=== PATIENT | female | born 1940 | race Caucasian/White ===

== ENCOUNTER 2019-04-24 09:38 | Outpatient (CLI) | payer MEDICARE, OTHER, SELFPAY ==
--- NOTE | 2019-04-24 09:48 | CT_ITS ---
WS: [id number] CT CHEST TECHNIQUE: Noncontrast CT of the chest with coronal and sagittal reformatted images. CLINICAL INFORMATION: COPD COMPARISON: CTA chest 1 30,018 DLP: 835.[address] scans at [facility] use at least one of these dose optimization techniques: automat ed exposure control; mA and/or kV adjustment per patient size (includes targeted exams where dose is matched to clinical indication); or iterative reconstruction. FINDINGS: Moderate chronic emphysematous changes. Subsegmental atelectasis right lung base. Postoperative [place] es breast prosthesis. Vascular calcification. Normal caliber thoracic aorta. No mediastinal or hilar lymphadenopathy. No axillary lymphadenopathy. Slightly nodular heterogeneous thyroid. Biapical fibrosis. No suspicious pulmonary parenchymal opacities. Scattered interstitial scattered ar eas of parenchymal fibrosis in both lungs. Normal thoracic alignment. Both adrenal glands are normal. Tiny increased attenuation left renal lesi ons likely small hemorrhagic cysts. Stable hepatic cyst or hemangioma left hepatic lobe. CT/CT chest wo con [id number] IMPRESSION: 1. Stable moderate chronic emphysematous changes. 2. No acute pulmonary infiltrates. No focal pneumonia. 3. No mediastinal or hilar lymphadenopathy. 4. Tiny hiatal hernia. 5. Postoperative changes bilateral breast prosthesis. 6. No other interval changes.
== END 2019-04-24 09:39 | disposition home or self-care (01) ==
LOC: RT 09:42
PROVIDERS: Family Provider Family Medicine; PCP Family Medicine; Visit Provider Internal Medicine Critical Care Medicine
DX: J44.9 Chronic obstructive pulmonary disease, unspecified (principal); K44.9 Diaphragmatic hernia without obstruction or gangrene
CPT/HCPCS: 71250; 94060; 94726; 94729; J7611

== ENCOUNTER 2019-05-09 12:00 | Outpatient (CLI) | payer MEDICARE, OTHER, SELFPAY | END 2019-05-09 12:01 | disposition home or self-care (01) | LOC: SLEEP 05-10 15:16 | PROVIDERS: Family Provider Family Medicine; PCP Family Medicine; Visit Provider Internal Medicine Critical Care Medicine | DX: G47.33 Obstructive sleep apnea (adult) (pediatric) (principal) | CPT/HCPCS: G0399 ==

== ENCOUNTER 2019-05-10 14:41 | Outpatient (CLI) | payer MEDICARE, OTHER, SELFPAY ==
--- NOTE | 2019-05-10 15:00 | USCV_ITS ---
Sana Coto Age: 79 Gender: F : 1940 Exam Date: 05/10/2019 14:55 Ordering Phys: Francine Jordan MD Technologist: Pj [place] [facility] [place]: COPD BP: 130 / 74 HR: 59 Rhythm: Sinus Technical Quality: Adequate MEASUREMENTS (Male / Female) Normal Values 2D ECHO LV Diastolic Diameter PLAX 3.3 cm 4.2 - 5.9 / 3.9 - 5.3 cm LV Systolic Diameter PLAX 2.2 cm IVS Diastolic Thickness 0.8 cm 0.6 - 1.0 / 0.6 - 0.9 cm IVS Systolic Thickness 0.9 cm LVPW Diastolic Thickness 1.1 cm 0.6 - 1.0 / 0.6 - 0.9 cm LVPW Systolic Thickness 1.1 cm LVOT Diameter 2.1 cm LV Ejection Fraction 2D Teich 63.7 % LA Diameter 4.0 cm LA Width 3.2 cm LA Height 5.2 cm RA Width 3.3 cm RA Height 3.6 cm M-MODE LV Diastolic Diameter MM 5.2 cm 4.2 - 5.9 / 3.9 - 5.3 cm LV Systolic Diameter MM 3.5 cm LV Ejection Fraction MM Teich 61.6 % IVS Diastolic Thickness MM 1.5 cm 0.6 - 1.0 / 0.6 - 0.9 cm IVS Systolic Thickness MM 1.6 cm LVPW Diastolic Thickness MM 1.4 cm 0.6 - 1.0 / 0.6 - 0.9 cm LVPW Systolic Thickness MM 1.8 cm RV Diastolic Diameter MM 1.9 cm Aortic Annulus Diameter 3.2 cm LA Ao Ratio MM 1.2 MV E Point Septal Separation 1.4 cm DOPPLER AV Peak Velocity 135.0 cm/s LVOT Peak Velocity 110.0 cm/s AV Area Cont Eq vti 2.8 cm squared AV Area Cont Eq pk 2.8 cm squared MV Area PHT 3.5 cm squared Mitral E to A Ratio 0.7 MV E' Velocity 9.0 cm/s Mitral E to MV E' Ratio 7.2 Mitral E to LV E' Lateral Ratio 6.3 Mitral E to LV E' Septal Ratio 8.4 TR Peak Velocity 208.0 cm/s TR Peak Gradient 17.3 mmHg TV Peak E Velocity 118.0 cm/s Right Atrial Pressure 3.0 mmHg Pulmonary Artery Systolic Pressu 20.3 mmHg PV Peak Velocity 127.0 cm/s FINDINGS Left Ventricle Normal left ventricular cavity size. Normal left ventricular systolic function. No regional wall motion abnormalities. Left ventricular ejection fraction is estimated at 61 %. Grade I/IV diastolic dysfunction (abnormal relaxation filling pattern), normal to mildly elevated filling pressures. Right Ventricle The right ventricle is normal in size and function. Right Atrium The right atrium is normal in size. Left Atrium The left atrium is normal in size. Mitral Valve Structurally normal mitral valve without significant stenosis or prolapse. There is no mitral regurgitation. Aortic Valve Structurally normal aortic valve without significant sclerosis or stenosis. There is no aortic regurgitation. Tricuspid Valve Mild tricuspid valve regurgitation. Pulmonic Valve Structurally normal pulmonic valve without significant stenosis. There is no pulmonic regurgitation. Pericardium Normal pericardium without effusion. Aorta Normal ascending aorta dimension. CONCLUSIONS 1-Normal left ventricular cavity size. Normal left ventricular systolic function. No regional wall motion abnormalities. Left ventricular ejection fraction is estimated at 61 %. Grade I/IV diastolic dysfunction (abnormal relaxation filling pattern), normal to mildly elevated filling pressures. 2-Mild tricuspid valve regurgitation. 3-There is no pericardial effusion. 4-Pulmonary artery systolic pressure is within normal limits. 5-When compared to the prior echocardiogram dated 04/20/2017 pulmonary hypertension has improved to normal now Eddy Cano MD (Electronically Signed) Final Date: 10 May 2019 19:22 S
[2019-05-10 15:44] LABS: Alanine Aminotransferase 31 U/L (0-33); Albumin Level 4.4 g/dL (3.5-5.2); Alkaline Phosphatase 70 IU/L (35-105); Anion Gap 15.6 (5-19); Aspartate Amino Transferase 31 U/L (0-32); Blood Urea Nitrogen 19 mg/dL (8-23); Calcium 10.7 mg/dL (8.5-10.5); Carbon Dioxide 28 mmol/L (22-29); Chloride 100 mmol/L (98-107); Globulin 2.9 g/dL (1.3-4.6); Glucose 107 mg/dL (65-115); Potassium 4.6 mmol/L (3.5-5.1); Sodium 139 mmol/L (136-145); Total Bilirubin 0.5 mg/dL (0.15-1.2); Total Protein 7.3 g/dL (6.6-8.7)
== END 2019-05-10 14:42 | disposition home or self-care (01) ==
LOC: US 14:43
PROVIDERS: Family Provider Family Medicine; PCP Family Medicine; Visit Provider Internal Medicine Critical Care Medicine
DX: R06.02 Shortness of breath (principal); J44.9 Chronic obstructive pulmonary disease, unspecified; I07.1 Rheumatic tricuspid insufficiency
CPT/HCPCS: 80053; 93306

== ENCOUNTER 2020-04-03 14:18 | Outpatient (CLI) | payer MEDICARE, OTHER, SELFPAY ==
--- NOTE | 2020-04-03 14:34 | MM_ITS ---
WS: [id number] BILATERAL DIGITAL SCREENING MAMMOGRAPHY WITH CAD CLINICAL INFORMATION: SCREENING HISTORY: Screening mammogram. No current complaints. COMPARISON: TECHNIQUE: Bilateral CC and MLO views. FINDINGS: Bilateral breast implants. Scattered fibroglandular densities bilaterally. Nodular breast parenchyma bilaterally is unchanged. N o suspicious focal mass, asymmetry, calcifications, or architectural distortion. No evidence of malig juan carlos. MM/[id number] IMPRESSION: BI-RADS: 2-Benign FOLLOW UP: 1 Year Follow-up Recommend return to annual screening mammography.
== END 2020-04-03 14:19 | disposition home or self-care (01) ==
LOC: RADSHAW 14:22
PROVIDERS: Family Provider Family Medicine; PCP Family Medicine; Visit Provider Family Medicine
DX: Z12.31 Encounter for screening mammogram for malignant neoplasm of breast (principal)
CPT/HCPCS: 77067

== ENCOUNTER 2020-10-23 16:53 | Outpatient (CLI) | payer MEDICARE, OTHER, SELFPAY ==
--- NOTE | 2020-10-23 17:03 | XRR_ITS ---
PROCEDURE INFORMATION: Exam: XR Chest Exam date and time: 10/23/2020 5:03 PM Age: 80 years old Clinical indication: Shortness of breath; Additional info: SOB TECHNIQUE: Imaging protocol: XR of the chest. Views: 2 views. COMPARISON: CT chest con [id number] 04/24/2019 11:08 AM FINDINGS: Lungs: The lungs are somewhat hyperinflated with increased interstitial markings, likely representing COPD. Minimal bibasilar atelectasis. No evidence of focal consolidation to suggest pneumonia. Pleural spaces: Unremarkable. No pleural effusion. No pneumothorax. Heart/Mediastinum: Unremarkable. No cardiomegaly. Bones/joints: Degenerative changes of the spine seen. XR/XR chest 2V* [id number] IMPRESSION: No evidence of focal consolidation. COPD changes.
== END 2020-10-23 16:54 | disposition home or self-care (01) ==
PROVIDERS: PCP Family Medicine; Visit Provider Internal Medicine Critical Care Medicine
DX: R06.02 Shortness of breath (principal)
CPT/HCPCS: 71046

== ENCOUNTER 2021-03-01 18:10 | Emergency (ER) | payer MEDICARE, OTHER, SELFPAY ==
[2021-03-01 18:48] VITALS: BP 151/83; PULSE 58; RESP 19; TEMP 36.3; O2SAT 89; BMI 31.4
--- NOTE | 2021-03-01 21:36 | ED_ITS ---
HPI - SOB/Dyspnea General: Chief Complaint: Shortness of Breath/Dyspnea Stated Complaint: Cough Cold O2 Stat 70 Time Seen by Provider: 03/01/21 21:03 History of Present Illness: HPI Narrative: 81-year-old female with a history of COPD/bronchitis and tracheomalacia presenting with shortness of breath. She has been using her albuterol inhaler at home, and had been on prednisone for 5 days. She had just finished this. She became more short of breath this ev ening. She has had a cough, with some clear sputum production. No fever. No significant chest pain. She does use oxygen intermittently at home, and noticed that after going to the bathroom, her saturations sent to the low 80s MD elicited complaint: shortness of breath and cough Pertinent past history: COPD Onset (ago): day(s) Context: recent illness Timing: intermittent Severity: moderate Exacerbating factors: exertion Relieving factors: oxygen Known history of: COPD and other Associated symptoms: Reports nausea and sense of impending doom; Deny abdominal pain, chest congestion, chest pain, cough, dizziness, extremity pain, fever(s) or vomiting Review of Systems Const: Denies: fever(s) Card: Denies: chest pain Resp: Denies: chest congestion GI: Reports: nausea and diarrhea; Denies: abdominal pain or vomiting Musc: Denies: extremity pain Neuro: Denies: dizziness PFSH ED PFSH: Medical History COPD (chronic obstructive pulmonary disease) DVT (deep venous thrombosis) Essential (primary) hypertension Melanoma Pulmonary embolism Tracheomalacia, acquired Surgical History Cataract extraction status of left eye History of ear surgery History of hysterectomy History of lumpectomy of right breast Family History Father Parkinson's disease Mother Heart disease Sister Cancer Lung Sister Cancer Ovarian Social History Smoking and tobacco status: former smoker Quit status (tobacco): has quit using tobacco Year quit tobacco: 2001 - 1PPD x 40 Years Alcohol intake: current Alcohol intake frequency: holidays/special occasions only Lives independently: Yes Household members: none Marital status: Current occupational status: retired History of recent travel: No Current gender identity: Female Physical Exam Const: COMMON NORMALS: no acute distress, patient oriented x3 and alert GENERAL APPEARANCE: ill appearing NUTRITIONAL APPEARANCE: overweight ORIENTATION/CONSCIOUSNESS: Yes awake, Yes oriented to person and Yes oriented to place Chest: COMMONS NORMALS: normal inspection of the chest Resp: EFFORT & INSPECTION: Yes tachypneic and Yes uses accessory muscles AUSCULTATION: wheezes and diminished lung sounds Cardio: COMMON NORMALS: regular rate and regular rhythm RATE: regular rate RHYTHM: regular rhythm GI: COMMON NORMALS: Normal to inspection, nondistended, normoactive bowel sounds present Extremity: GENERAL: Yes edema (1+) Neuro: COMMON NORMALS: patient oriented x3 SENSORIUM/ORIENTATION: Yes alert, Yes oriented to person and Yes oriented to place Course Vital Signs: Vital signs: Vital Signs Temperature 97.3 F L 03/01/21 21:56 Pulse Rate 82 03/01/21 23:00 Respiratory Rate 18 03/01/21 23:00 Blood Pressure 147/82 03/01/21 21:56 Pulse Oximetry 96 03/01/21 23:00 MDM - SOB/Dyspnea MDM Narrative: Medical decision making narrative: 81-year-old female with shortness of breath. She has diminished lung sounds and wheezes on exam. Her heart failure enzyme is not elevated. Her troponin is nonelevated. Her white blood cell count is 9.5. Hemoglobin is 16.8. Her chest x-ray shows no acute disease, only chronic changes of COPD. Swabs for influenza COVID-19 are negative. She has had 125 Solu-Medrol, and a DuoNeb treatment. She is feeling much better. She is breathing well at her baseline oxygen usage at home. Discussed admission with the patient. She would like a trial at home. She has prednisone, and Levaquin there. With shared decision-making, the patient will go home on prednisone at least 40 mg daily for the next 5 days, Levaquin, and usage of her albuterol inhaler every 4 hours while awake for the next 48 hours, then as needed. I have written a prescription for DuoNeb treatments at home as well. She is going to get a nebulizer machine for home to use with this. Her daughter who is a nurse is going to stay with her. She knows to return for any worsening symptoms for hospital admission Lab Data: Labs: Lab Results 03/01/21 03/01/21 03/01/21 21:52 21:52 21:52 WBC 9.5 10^3/uL 10^3/ uL (4.0-10.0) RBC 5.12 10^6/uL 10^6 /uL (4.1-5.3) Hgb 16.8 g/dL H g/dL (11.5-15.3) Hct 51.4 % H % (37.0-47.0) MCV 100.4 fl H fl (81-99) MCH 32.8 pg pg (28.0-34.0) MCHC 32.7 g/dL g/dL (30.0-36.0) RDW 12.7 % % (12.1-15.1) Plt Count 171 10^3/cmm 10^3 /cmm (130-400) MPV 10.3 fL fL (7.4-10.4) Neut % (Auto) 76.8 % % Lymph % (Auto) 10.4 % % Norton % (Auto) 12.3 % % Eos % (Auto) 0.0 % % Baso % (Auto) 0.1 % % Neut # (Auto) 7.32 10^3/uL 10^3 /uL (1.8-7.7) Lymph # (Auto) 1.0 10^3/uL 10^3/ uL (0.8-4.8) Norton # (Auto) 1.2 10^3/uL H 10^ 3/uL (0.2-0.9) Eos # (Auto) 0.0 10^3/uL 10^3/ uL (0.0-0.8) Baso # (Auto) 0.0 10^3/uL 10^3/ uL (0.0-0.1) Nucleated RBC % (a uto) 0 % % Nucleated RBCs # 0.0 /100WBC /100W BC D-Dimer 0.30 ug/mIFEU ug/ mIFEU (0-0.59) Specimen Type Sample Site ABG pH ABG pCO2 ABG pO2 ABG HCO3 ABG Base Excess Reyes Test Hematocrit Hgb O2 Saturation Carboxyhemoglobin Methemoglobin Total Hemoglobin O2 Delivery Device O2 Liters/Min Loan Workout Officer ID Sodium 138 mmol/L mmol/L (136-145) Potassium 4.6 mmol/L mmol/L (3.5-5.1) Chloride 101 mmol/L mmol/L (98-107) Carbon Dioxide 23 mmol/L mmol/L (22-29) Anion Gap 18.6 (5-19) BUN 22 mg/dL mg/dL (8-23) Creatinine 1.0 mg/dL H mg/dL (0.5-0.9) GFR Calculation Not Reportable Glucose 95 mg/dL mg/dL (65-115) Calculated Osmolal ity 289 mOsm/kg mOsm/ kg (285-295) Lactic Acid Calcium 8.7 mg/dL mg/dL (8.5-10.5) Total Bilirubin 0.3 mg/dL mg/dL (0.15-1.2) AST 20 U/L U/L (0-32) ALT 21 U/L U/L (0-33) Alkaline Phosphata se 72 IU/L IU/L (35-105) Troponin T Baselin e C-Reactive Protein 0.4 mg/L mg/L (0.0-4.9) NT-Pro-B Natriuret Pep 202 pg/mL pg/mL (0-450) Total Protein 6.6 g/dL g/dL (6.6-8.7) Albumin 4.2 g/dL g/dL (3.5-5.2) Globulin 2.4 g/dL g/dL (1.3-4.6) Procalcitonin 0.06 ng/mL ng/mL (0-0.5) Influenza Type A A g Influenza Type B A g SARS-CoV-2 Ag (Rap id) 03/01/21 03/01/21 03/01/21 21:52 21:52 22:57 WBC RBC Hgb Hct MCV MCH MCHC RDW Plt Count MPV Neut % (Auto) Lymph % (Auto) Norton % (Auto) Eos % (Auto) Baso % (Auto) Neut # (Auto) Lymph # (Auto) Norton # (Auto) Eos # (Auto) Baso # (Auto) Nucleated RBC % (a uto) Nucleated RBCs # D-Dimer Specimen Type Sample Site ABG pH ABG pCO2 ABG pO2 ABG HCO3 ABG Base Excess Reyes Test Hematocrit Hgb O2 Saturation Carboxyhemoglobin Methemoglobin Total Hemoglobin O2 Delivery Device O2 Liters/Min Loan Workout Officer ID Sodium Potassium Chloride Carbon Dioxide Anion Gap BUN Creatinine GFR Calculation Glucose Calculated Osmolal ity Lactic Acid 1.2 mmol/L mmol/L (0.5-2.2) Calcium Total Bilirubin AST ALT Alkaline Phosphata se Troponin T Baselin e 9 ng/L ng/L (0-10) C-Reactive Protein NT-Pro-B Natriuret Pep Total Protein Albumin Globulin Procalcitonin Influenza Type A A g Negative (Negative) Influenza Type B A g Negative (Negative) SARS-CoV-2 Ag (Rap id) 03/01/21 03/01/21 22:57 23:02 WBC RBC Hgb Hct MCV MCH MCHC RDW Plt Count MPV Neut % (Auto) Lymph % (Auto) Norton % (Auto) Eos % (Auto) Baso % (Auto) Neut # (Auto) Lymph # (Auto) Norton # (Auto) Eos # (Auto) Baso # (Auto) Nucleated RBC % (a uto) Nucleated RBCs # D-Dimer Specimen Type Arterial Sample Site Radial, right ABG pH 7.33 L (7.35-7.45) ABG pCO2 56.9 mmHg H mmHg (35-45) ABG pO2 73.8 mmHg L mmHg (80.0-100.0) ABG HCO3 30.2 mmol/L H mmo l/L (22-26) ABG Base Excess 2.5 mmol/L H mmol /L (-2.0-2.0) Reyes Test Pos Hematocrit 53.4 % H % (37-47) Hgb O2 Saturation 93.1 % L % (95-100) Carboxyhemoglobin 0.8 %THgb %THgb (0.4-20.1) Methemoglobin 0.6 % % (0.4-1.5) Total Hemoglobin 17.4 g/dL H g/dL (12-16) O2 Delivery Device Nc O2 Liters/Min 3.0 % % Loan Workout Officer ID Nicer2 Sodium Potassium Chloride Carbon Dioxide Anion Gap BUN Creatinine GFR Calculation Glucose Calculated Osmolal ity Lactic Acid Calcium Total Bilirubin AST ALT Alkaline Phosphata se Troponin T Baselin e C-Reactive Protein NT-Pro-B Natriuret Pep Total Protein Albumin Globulin Procalcitonin Influenza Type A A g Influenza Type B A g SARS-CoV-2 Ag (Rap id) Negative (Negative) Discharge Plan Discharge Patient Disposition: Home Clinical Impression: Acute exacerbation of chronic obstructive airways disease Condition: Stable Prescriptions: New ipratropium-albuterol 0.5 mg-3 mg(2.5 mg base)/3 mL solution for nebulization 3 ml inhalation Q6H PRN (Reason: shortness of breath or wheezing) Qty: 180 RF: 0 No Action acetaminophen-codeine [Tylenol-Codeine #3] 300-30 mg tablet 1 tab PO BID PRNRF: 0 simvastatin 40 mg tablet 40 mg PO DAILY RF: 0 spironolactone 50 mg tablet 50 mg PO DAILY RF: 0 metoprolol tartrate 50 mg tablet 25 mg PO BID RF: 0 diphenhydramine HCl [Benadryl] 25 mg capsule 25 mg PO QDAY PRNRF: 0 Xarelto 10 mg tablet 10 mg PO DAILY Qty: 90 RF: 3 Symbicort 160-4.5 mcg/actuation HFA aerosol inhaler 2 puff INHALATION BID Qty: 10.2 RF: 11 albuterol sulfate [Ventolin HFA] 90 mcg/actuation HFA aerosol inhaler 2 puff INHALATION Q6H PRN (Reason: bronchospasm) Qty: 25.5 RF: 3 levofloxacin 750 mg tablet 750 mg PO DAILY 5 Days Qty: 5 RF: 0 Discharge Orders: Discharge ED (Routine); Ordered 03/02/21 Ordered By: Elmer Shelton Referrals: Eugene Johnson DO [Primary Care Provider] - 1-3 days Discharge Diet: Advance as tolerated Discharge Activity: Increase activity as tolerated Patient Instructions: COPD (Chronic Obstructive Pulmonary Disease) (ED) Activity Restrictions/Additional Instructions: Use your albuterol inhaler every 4 hours while awake for the next 48 hours. If you obtain a nebulizer machine, use the medication prescribed instead of the albuterol inhaler every 6 hours while awake for the next 48 hours, then as needed. Take your prednisone for the next 5 days, at least 40 mg daily. Also take your levofloxacin 750 mg daily for the next 5 days. Return immediately to the ER for any worsening shortness of breath, or chest discomfort, fever greater than 100 despite antibiotics, mental status changes, other concerning symptoms. Coding Level of Care Code ED Lathe Winder for Corettag Fwd Exam Detailed
--- NOTE | 2021-03-01 21:36 | XRR_ITS ---
PROCEDURE INFORMATION: Exam: XR Chest Exam date and time: 03/01/2021 9:36 PM Age: 81 years old Clinical indication: Dyspnea; Patient HX: Congestion. Film is rotated. Large habitus, could not get her straight, she remained sitting somewhat twisted. ; Additional info: SOB TECHNIQUE: Imaging protocol: XR of the chest. Views: 1 view. COMPARISON: CR XR chest 2V* [id number] 10/23/2020 5:13 PM FINDINGS: Lungs: Emphysematous lung changes. No focal airspace consolidation. Hyperinflation lung pattern. Pleural spaces: Unremarkable. No pleural effusion. No pneumothorax. Heart/Mediastinum: Unremarkable. No cardiomegaly. Bones/joints: Unremarkable. XR/XR chest 1V portable [id number] IMPRESSION: 1. Sequela of advanced COPD. 2. No focal pneumonia identified.
--- NOTE | 2021-03-01 21:37 | ECG_ITS ---
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 Measurements Intervals [place] Rate: 81 P: 40 NM: 158 QRS: 54 QRSD: 89 T: 70 QT: 330 QTc: 385 Interpretive Statements SINUS RHYTHM WITH OCCASIONAL SUPRAVENTRICULAR PREMATURE COMPLEXES MINIMAL ST DEPRESSION [0.025+ mV ST DEPRESSION] Compared to ECG 04/20/2017 23:38:34 ST (T wave) deviation now present T-wave abnormality no longer present Electronically Signed On 03-02-2021 20:06:37 CIGAR HEAD PERFORATOR by Jona Vora M.D. [id number] f
[2021-03-01 21:56] VITALS: BP 147/82; PULSE 61; RESP 20; TEMP 36.3; O2SAT 92
[2021-03-01 21:58] LABS: Basophils % 0.1 %; Hematocrit 51.4 % (37.0-47.0); Hemoglobin 16.8 g/dL (11.5-15.3); Lymphocytes % 10.4 %; Mean Corpuscular HGB Conc 32.7 g/dL (30.0-36.0); Mean Corpuscular Hemoglobin 32.8 pg (28.0-34.0); Mean Corpuscular Volume 100.4 fl (81-99); Mean Platelet Volume 10.3 fL (7.4-10.4); Monocytes # 1.2 10^3/uL (0.2-0.9); Monocytes % 12.3 %; Neutrophils # 7.32 10^3/uL (1.8-7.7); Neutrophils % 76.8 %; Nucleated Red Blood Cells % 0 %; Platelet Count 171 10^3/cmm (130-400); Red Blood Count 5.12 10^6/uL (4.1-5.3); Red Cell Distribution Width 12.7 % (12.1-15.1); White Blood Count 9.5 10^3/uL (4.0-10.0)
[2021-03-01 22:20] LABS: Lactic Sepsis W/Reflex 1.2 mmol/L (0.5-2.2)
[2021-03-01 22:30] LABS: NT Pro B Type Natriuretic Pept 202 pg/mL (0-450); Procalcitonin 0.06 ng/mL (0-0.5)
[2021-03-01 22:33] LABS: Troponin(5th) Baseline 9 ng/L (0-10)
[2021-03-01 22:41] LABS: Alanine Aminotransferase 21 U/L (0-33); Albumin Level 4.2 g/dL (3.5-5.2); Alkaline Phosphatase 72 IU/L (35-105); Anion Gap 18.6 (5-19); Aspartate Amino Transferase 20 U/L (0-32); Blood Urea Nitrogen 22 mg/dL (8-23); C Reactive Protein 0.4 mg/L (0.0-4.9); Calcium 8.7 mg/dL (8.5-10.5); Carbon Dioxide 23 mmol/L (22-29); Chloride 101 mmol/L (98-107); Globulin 2.4 g/dL (1.3-4.6); Glucose 95 mg/dL (65-115); Osmolality Calculated 289 mOsm/kg (285-295); Potassium 4.6 mmol/L (3.5-5.1); Sodium 138 mmol/L (136-145); Total Bilirubin 0.3 mg/dL (0.15-1.2); Total Protein 6.6 g/dL (6.6-8.7)
[2021-03-01 23:00] VITALS: PULSE 82; RESP 18; O2SAT 96
[2021-03-01] MEDS: ipratropium-albuterol 3 mL Neb INHALATION (23:00)
[2021-03-01 23:14] LABS: ABG PCO2 56.9 mmHg (35-45); ABG PH Result 7.33 (7.35-7.45); Arterial Blood Gas Hematocrit 53.4 % (37-47); Base Excess ABG 2.5 mmol/L (-2.0-2.0); Blood Gas Allen Test Pos; Blood Gas Sample Site Radial, right; Blood Gas Sample Type Arterial; Carboxyhemoglobin 0.8 %THgb (0.4-20.1); HCO3 ABG 30.2 mmol/L (22-26); HGB O2 Sat 93.1 % (95-100); Methemoglobin 0.6 % (0.4-1.5); PO2 ABG 73.8 mmHg (80.0-100.0); Total Hemoglobin 17.4 g/dL (12-16)
[2021-03-01 23:15] LABS: Oxygen Device NC
[2021-03-02 00:01] LABS: Influenza A by IFA Negative (Negative); Influenza B by IFA Negative (Negative); SARS Covid-2 Antigen Negative (Negative)
[2021-03-02] MEDS: levoFLOXacin 500 mg Tablet PO (01:08)
[2021-03-02 01:50] VITALS: BP 149/76; PULSE 82; RESP 18; O2SAT 96
== END 2021-03-02 01:00 | disposition home or self-care (01) ==
PROVIDERS: Emergency Provider Emergency Medicine; PCP Family Medicine
DX: J44.1 Chronic obstructive pulmonary disease with (acute) exacerbation (principal); I10 Essential (primary) hypertension; Z86.711 Personal history of pulmonary embolism; Z87.891 Personal history of nicotine dependence; Z20.822 Contact with and (suspected) exposure to COVID-19
CPT/HCPCS: 71045; 80053; 82805; 83605; 83880; 84145; 84484; 85025; 85378; 86140; 87426; 87804; 93005; 94640; 96374; 96376; 99284; J2930

== ENCOUNTER 2021-05-02 11:07 | Outpatient (CLI) | payer MEDICARE, OTHER, SELFPAY ==
--- NOTE | 2021-05-02 11:14 | MM_ITS ---
WS: [id number] BILATERAL DIGITAL SCREENING MAMMOGRAPHY WITH CAD CLINICAL INFORMATION: SCREENING HISTORY: Screening mammogram. No current complaints. COMPARISON: April 03, 2020 TECHNIQUE: Bilateral CC and MLO views. FINDINGS: Bilateral breast implants with capsular calcifications. Breast implants appear grossly inta ct. Scattered fibroglandular densities bilaterally. Vascular calcification. A few ovoid densities outer R IGHT breast unchanged since 2019. No suspicious focal mass, asymmetry, calcifications, or architectur al distortion. No evidence of malignancy. MM/[id number] IMPRESSION: BI-RADS: 2-Benign FOLLOW UP: 1 Year Follow-up Recommend return to annual screening mammography.
== END 2021-05-02 11:08 | disposition home or self-care (01) ==
LOC: RADSHAW 11:08
PROVIDERS: PCP Family Medicine; Visit Provider Family Medicine
DX: Z12.31 Encounter for screening mammogram for malignant neoplasm of breast (principal)
CPT/HCPCS: 77067

== ENCOUNTER 2021-06-06 23:38 | Emergency (ER) | payer MEDICARE, OTHER, SELFPAY ==
--- NOTE | 2021-06-06 23:39 | XRR_ITS ---
PROCEDURE INFORMATION: Exam: XR Chest Exam date and time: 06/06/2021 10:43 PM Age: 81 years old Clinical indication: Chest pressure; Patient HX: C/O intermittent chest pain. History of copd. ; Additional info: Cp TECHNIQUE: Imaging protocol: XR of the chest. Views: 1 view. COMPARISON: CR (CHEST, ) 03/01/2021 9:51 PM FINDINGS: Lungs: Allowing for density from overlying breast implants over the (more convincing on the right), the lungs are clear. Pleural spaces: Unremarkable. No pleural effusion. No pneumothorax. Heart/Mediastinum: The heart size is normal. Bones/joints: Unremarkable. XR/XR chest 1V portable [id number] IMPRESSION: No change, lungs clear
--- NOTE | 2021-06-06 23:39 | ECG_ITS ---
[facility] Test Date: 2021-06-06 Pat Name: Sana Coto Department: Room: Gender: Female Director Executive Communications: : 1940 Requested By: Kennedy Winters Order Number: [id number] Navjot MD: Jona Vora M.D. Measurements Intervals [place] Rate: 65 P: 68 [place]: 181 QRS: 62 QRSD: 95 T: 67 QT: 368 QTc: 383 Interpretive Statements SINUS RHYTHM LOW QRS VOLTAGE IN PRECORDIAL LEADS [QRS DEFLECTION < 1.0 mV IN CHEST LEADS] Compared to ECG 03/01/2021 21:40:16 Low QRS voltage now present ST (T wave) deviation no longer present Electronically Signed On 06-08-2021 17:19:10 CDT by Jona Vora M.D. [id number]
[2021-06-06 23:43] VITALS: BP 167/77; PULSE 57; RESP 22; TEMP 36.7; O2SAT 93; BMI 34.3
--- NOTE | 2021-06-06 23:47 | W.ED.CHESTPA ---
HPI - Chest Pain General: Chief Complaint: Chest Pain Stated Complaint: CP Time Seen by Provider: 06/06/21 23:39 Source: patient and EMS Mode of arrival: EMS Limitations: no limitations History of Present Illness: 81-year-old female who states that tonight she was having chest pain started roughly 1 to 2 hours ago after taking her meds. States that pain has been intermittent in nature and comes and goes and is in the center of her chest. She said no vomiting or diarrhea she has chronic dyspnea from COPD and tracheomalacia. She states she is currently pain-free EMS states she has been hypertensive she denies any worsening improving factors no vomiting or diarrhea. Associated symptoms: Deny abdominal pain, dyspnea, fever(s), nausea or vomiting Review of Systems Const: Denies: fever(s), chills, body aches or change in appetite Eyes: Denies: blurry vision or eye discomfort ENMT: Denies: throat pain or dental pain Card: Reports: chest pain Resp: Denies: dyspnea GI: Denies: abdominal pain, nausea, vomiting or diarrhea : Denies: dysuria Musc: Denies: neck pain or back pain Skin/Breast: Denies: rash Neuro: Denies: headache(s) Psych: Denies: depression Renan/Lymph: Denies: easy bruising All/Imm: Denies: urticaria PFSH ED PFSH: Medical History COPD (chronic obstructive pulmonary disease) DVT (deep venous thrombosis) Essential (primary) hypertension Melanoma Pulmonary embolism Tracheomalacia, acquired Surgical History Cataract extraction status of left eye History of ear surgery History of hysterectomy History of lumpectomy of right breast Family History Father Parkinson's disease Mother Heart disease Sister Cancer Lung Sister Cancer Ovarian Social History Smoking and tobacco status: former smoker Quit status (tobacco): has quit using tobacco Year quit tobacco: 2001 - 1PPD x 40 Years Alcohol intake: current Alcohol intake frequency: holidays/special occasions only Lives independently: Yes Household members: none Marital status: Current occupational status: retired History of recent travel: No Current gender identity: Female Physical Exam Const: COMMON NORMALS: no acute distress, patient oriented x3 and healthy appearing HENMT: COMMON NORMALS: normocephalic and atraumatic HEAD & SCALP: normocephalic and atraumatic Eye: COMMON NORMALS: Equal, round and reactive pupils present and EOMs intact bilaterally PUPIL: Yes Equal, round and reactive pupils present Neck/C-Spine: COMMON NORMALS: full ROM and supple Chest: COMMONS NORMALS: normal inspection of the chest and normal palpation of entire chest wall Resp: COMMON NORMALS: normal respiratory effort, No retractions, No use of accessory muscles and clear to auscultation bilaterally AUSCULTATION: clear to auscultation bilaterally Cardio: COMMON NORMALS: regular rate, regular rhythm and No murmurs present (Cardio) RATE: regular rate RHYTHM: regular rhythm GI: COMMON NORMALS: Normal to inspection, nondistended, normoactive bowel sounds present, Soft to palpation, non-tender and no masses PALPATION: Yes Soft to palpation Extremity: COMMON NORMALS: normal to inspection and full ROM Neuro: COMMON NORMALS: patient oriented x3, moves all extremities and no focal motor deficits Psych: COMMON NORMALS: mental status grossly normal, Normal thought process present and cooperative THOUGHT PROCESS: Normal thought process present Skin: COMMON NORMALS: no rashes or lesions noted and no wounds GENERAL SKIN EXAM: no rashes or lesions noted Course Vital Signs: Vital signs: Vital Signs Temperature 98.1 F 06/06/21 23:43 Pulse Rate 53 L 06/07/21 01:16 Respiratory Rate 12 06/07/21 01:16 Blood Pressure 142/79 06/07/21 01:16 Pulse Oximetry 92 06/07/21 01:16 [facility] - Chest Pain Medical Decision Making Patient presents for chest pains atypical in nature. She could had some esophagitis from taking her prednisone tonight. EKGs troponins are both normal. She has no signs of acute coronary syndrome. No signs of dissection or pulmonary embolism. She is requesting discharge she feels improved she is stable for discharge return if worsening. Lab Data : 06/06/21 23:20 06/06/21 23:20 Radiology Impressions Chest X-Ray 06/06/21 23:39 IMPRESSION: No change, lungs clear Laboratory Results WBC 13.7 10^3/uL (4.0-10.0) H 06/06/21 23:20 RBC 4.73 10^6/uL (4.1-5.3) 06/06/21 23:20 Hgb 15.1 g/dL (11.5-15.3) 06/06/21 23:20 Hct 46.5 % (37.0-47.0) 06/06/21 23:20 MCV 98.3 fl (81-99) 06/06/21 23:20 MCH 31.9 pg (28.0-34.0) 06/06/21 23:20 MCHC 32.5 g/dL (30.0-36.0) 06/06/21:20 RDW 12.9 % (12.1-15.1) 06/06/21:20 Plt Count 198 10^3/cmm (130-400) 06/06/21 23:20 MPV 11.2 fL (7.4-10.4) H 06/06/21 23:20 Neut % (Auto) 82.5 % 06/06/21 23:20 Lymph % (Auto) 7.7 % 06/06/21 23:20 Larimer % (Auto) 8.8 % 06/06/21 23:20 Eos % (Auto) 0.0 % 06/06/21 23:20 Baso % (Auto) 0.1 % 06/06/21 23:20 Neut # (Auto) 11.31 10^3/uL (1.8-7.7) H 06/06/21 23:20 Lymph # (Auto) 1.1 10^3/uL (0.8-4.8) 06/06/21 23:20 Larimer # (Auto) 1.2 10^3/uL (0.2-0.9) H 06/06/21 23:20 Eos # (Auto) 0.0 10^3/uL (0.0-0.8) 06/06/21 23:20 Baso # (Auto) 0.0 10^3/uL (0.0-0.1) 06/06/21 23:20 Nucleated RBC % (auto) 0 % 06/06/21 23:20 Nucleated RBCs # 0.0 /100WBC 06/06/21 23:20 PT 15.10 SECONDS (12.1-14.9) H 06/06/21 23:20 INR 1.15 (0.8-1.2) 06/06/21 23:20 Sodium 136 mmol/L (136-145) 06/06/21 23:20 Potassium 4.5 mmol/L (3.5-5.1) 06/06/21 23:20 Chloride 100 mmol/L (98-107) 06/06/21 23:20 Carbon Dioxide 24 mmol/L (22-29) 06/06/21 23:20 Anion Gap 16.5 (5-19) 06/06/21 23:20 BUN 27 mg/dL (8-23) H 06/06/21 23:20 Creatinine 1.2 mg/dL (0.5-0.9) H 06/06/21 23:20 GFR Calculation Not Reportable 06/06/21 23:20 Glucose 146 mg/dL (65-115) H 06/06/21 23:20 Calculated Osmolality 290 mOsm/kg (285-295) 06/06/21 23:20 Calcium 9.9 mg/dL (8.5-10.5) 06/06/21 23:20 Total Bilirubin 0.2 mg/dL (0.15-1.2) 06/06/21 23:20 AST 17 U/L (0-32) 06/06/21 23:20 ALT 13 U/L (0-33) 06/06/21 23:20 Alkaline Phosphatase 86 IU/L (35-105) 06/06/21 23:20 Troponin T Baseline 11 ng/L (0-10) H 06/06/21 23:20 Troponin T 120 Minute 13.08 ng/L (0-10) H 06/07/21 01:12 Delta Troponin T 2.08 ABS# (0-10) 06/07/21 01:12 Total Protein 7.0 g/dL (6.6-8.7) 06/06/21 23:20 Albumin 4.5 g/dL (3.5-5.2) 06/06/21 23:20 Globulin 2.5 g/dL (1.3-4.6) 06/06/21 23:20 EKG Data EKG 1: I personally reviewed and interpreted this EKG as follows: EKG interpretation date: 06/06/21 EKG interpretation time: 23:49 Interpretation: nsr hr [address] or t wave abnormalities qrs 95 qtc 379 Discharge Plan Discharge Patient Disposition: Home Clinical Impression: Chest pain Condition: Stable Prescriptions: No Action acetaminophen-codeine [Tylenol-Codeine #3] 300-30 mg tablet 1 tab PO BID PRN0RF simvastatin 40 mg tablet 40 mg PO DAILY 0RF spironolactone 50 mg tablet 50 mg PO DAILY 0RF metoprolol tartrate 50 mg tablet 25 mg PO BID 0RF diphenhydramine HCl [Benadryl] 25 mg capsule 25 mg PO QDAY PRN0RF Xarelto 10 mg tablet 10 mg PO DAILY Qty: 90 3RF Symbicort 160-4.5 mcg/actuation HFA aerosol inhaler 2 puff INHALATION BID Qty: 10.2 11RF Rx Instructions: 340 B pricing: Requesting 3 months supply (30.6 g) w 3 refills. Thanks albuterol sulfate [Ventolin HFA] 90 mcg/actuation HFA aerosol inhaler 2 puff INHALATION Q6H PRN (Reason: bronchospasm) Qty: 25.5 3RF Trelegy Ellipta 100-62.5-25 mcg blister with device 1 inh inhalation DAILY 30 Days Qty: 60 3RF prednisone 5 mg tablet 5 mg PO DAILY 30 Days Qty: 30 3RF levofloxacin 750 mg tablet 750 mg PO DAILY 5 Days Qty: 5 0RF ipratropium-albuterol 0.5 mg-3 mg(2.5 mg base)/3 mL solution for nebulization 3 ml inhalation Q6H PRN (Reason: shortness of breath or wheezing) 30 Days Qty: 360 4RF Spiriva with HandiHaler 18 mcg capsule, w/inhalation device 1 cap inhalation DAILY 30 Days Qty: 60 7RF Rx Instructions: puncture 1 cap using device; one dose = 2 inhalations Discharge Orders: Discharge ED (Routine); Ordered 06/07/21 Ordered By: Kennedy Winters Referrals: Eugene Johnson DO [Primary Care Provider] - 1-3 days Discharge Diet: Advance as tolerated Discharge Activity: Resume usual activity Patient Instructions: Chest Pain (ED) Coding Level of Care Code ED Centrifuge Separator Operator for g Fwd Exam Comprehensive
[2021-06-07 00:07] LABS: Basophils % 0.1 %; Hematocrit 46.5 % (37.0-47.0); Hemoglobin 15.1 g/dL (11.5-15.3); Lymphocytes # 1.1 10^3/uL (0.8-4.8); Lymphocytes % 7.7 %; Mean Corpuscular HGB Conc 32.5 g/dL (30.0-36.0); Mean Corpuscular Hemoglobin 31.9 pg (28.0-34.0); Mean Corpuscular Volume 98.3 fl (81-99); Mean Platelet Volume 11.2 fL (7.4-10.4); Monocytes # 1.2 10^3/uL (0.2-0.9); Monocytes % 8.8 %; Neutrophils # 11.31 10^3/uL (1.8-7.7); Neutrophils % 82.5 %; Nucleated Red Blood Cells % 0 %; Platelet Count 198 10^3/cmm (130-400); Red Blood Count 4.73 10^6/uL (4.1-5.3); Red Cell Distribution Width 12.9 % (12.1-15.1); White Blood Count 13.7 10^3/uL (4.0-10.0)
[2021-06-07 00:19] LABS: INR 1.15 (0.8-1.2)
[2021-06-07 00:27] LABS: Troponin(5th) Baseline 11 ng/L (0-10)
[2021-06-07 00:29] LABS: Alanine Aminotransferase 13 U/L (0-33); Albumin Level 4.5 g/dL (3.5-5.2); Alkaline Phosphatase 86 IU/L (35-105); Anion Gap 16.5 (5-19); Aspartate Amino Transferase 17 U/L (0-32); Blood Urea Nitrogen 27 mg/dL (8-23); Calcium 9.9 mg/dL (8.5-10.5); Carbon Dioxide 24 mmol/L (22-29); Chloride 100 mmol/L (98-107); Globulin 2.5 g/dL (1.3-4.6); Glucose 146 mg/dL (65-115); Osmolality Calculated 290 mOsm/kg (285-295); Potassium 4.5 mmol/L (3.5-5.1); Sodium 136 mmol/L (136-145); Total Bilirubin 0.2 mg/dL (0.15-1.2)
[2021-06-07 01:16] VITALS: BP 142/79; PULSE 53; RESP 12; O2SAT 92
[2021-06-07 01:57] LABS: Troponin 5 2HR 13.08 ng/L (0-10)
[2021-06-07 02:06] LABS: Troponin 5 2HR Delta 2.08 ABS# (0-10)
[2021-06-07 02:47] VITALS: BP 145/78; PULSE 50; RESP 17; O2SAT 92
== END 2021-06-07 02:51 | disposition home or self-care (01) ==
PROVIDERS: Emergency Provider Emergency Medicine; PCP Family Medicine
DX: R07.9 Chest pain, unspecified (principal); J44.9 Chronic obstructive pulmonary disease, unspecified; I10 Essential (primary) hypertension; Z86.711 Personal history of pulmonary embolism; Z87.891 Personal history of nicotine dependence
CPT/HCPCS: 36415; 71045; 80053; 84484; 85025; 85610; 93005; 99283

== ENCOUNTER → 2021-06-23 08:35 | Outpatient (BNVA) | payer MEDICARE, OTHER, SELFPAY | PROVIDERS: PCP Family Medicine; Visit Provider Internal Medicine Critical Care Medicine | DX: R05.9 Cough, unspecified (principal); J18.9 Pneumonia, unspecified organism; I27.82 Chronic pulmonary embolism | CPT/HCPCS: 71046; 80053; 85025; 99214 ==

== ENCOUNTER → 2021-07-04 10:04 | Outpatient (BNVA) | payer MEDICARE, OTHER, SELFPAY | PROVIDERS: PCP Family Medicine; Visit Provider Internal Medicine Critical Care Medicine | DX: J18.9 Pneumonia, unspecified organism (principal); J41.0 Simple chronic bronchitis; I27.82 Chronic pulmonary embolism; Z87.891 Personal history of nicotine dependence; I10 Essential (primary) hypertension | CPT/HCPCS: 99214 ==

== ENCOUNTER 2021-07-14 13:48 | Outpatient (CLI) | payer MEDICARE, OTHER, SELFPAY ==
--- NOTE | 2021-07-14 13:59 | XR_ITS ---
WS: [id number] Chest 2 views, 07/14/2021 Clinical Data: Pneumonia Comparison: PA and lateral chest, 06/23/2021. Findings: No nodules, masses or effusions are seen. The heart is normal. The pulmonary vascularity is not increased. No pneumonia or pneumothorax is seen. There is minimal patchy interstitial change in both lower lobes which jackman an improvement in the appearance of the lower lobes from the prior study . The aortic arch and descending thoracic aorta are tortuous. The diaphragms are flattened. XR/XR chest 2V* [id number] Impression: 1. Minimal bilateral patchy interstitial change in the lower lobes marking an i mprovement from the prior study. 2. Atherosclerosis and hyperinflation.
== END 2021-07-14 13:49 | disposition home or self-care (01) ==
LOC: RAD 13:51
PROVIDERS: PCP Family Medicine; Visit Provider Internal Medicine Critical Care Medicine
DX: J18.9 Pneumonia, unspecified organism (principal); I70.90 Unspecified atherosclerosis
CPT/HCPCS: 71046

== ENCOUNTER 2021-08-20 08:18 | Outpatient (CLI) | payer MEDICARE, OTHER, SELFPAY ==
--- NOTE | 2021-08-20 08:34 | CT_ITS ---
WS: [id number] NONCONTRAST CT RIGHT HIP TECHNIQUE: Noncontrast CT RIGHT hip with coronal and sagittal reformatted images. CLINICAL INFORMATION: R HIP PAIN/HX OF FRACTURE COMPARISON: None. DLP: [id number] scans at [facility] use at least one of these dose optimization techniques: automated e xposure control; mA and/or kV adjustment per patient size (includes targeted exams where dose is matc hed to clinical indication); or iterative reconstruction. FINDINGS: Advanced osteoarthritis RIGHT hip with osteophytic spurring. Advanced joint space narrowing with bone -on-bone articulation superolateral joint compartment. Subchondral cystic change involving the femora l head and adjacent acetabulum. Hypertrophic spurring along the femoral neck. Hypertrophic changes at the greater trochanter. Femoral neck and proximal femur appear intact. No acute fractures. Visualized RIGHT superior and inferior pubic rami appear intact. Degenerative arthritis pubic symphys is. Degenerative arthritis RIGHT sacroiliac joint. Small joint effusion. Sigmoid diverticulosis. CT/CT hip RT wo con* [id number] IMPRESSION: 1. No acute fractures. 2. Advanced osteoarthritis RIGHT hip with advanced joint space narrowing. Bone -on-bone articulation superolateral joint compartment. 3. Hypertrophic spurring at the acetabulum and femoral neck. Subchondral cysti c change involving the femoral head and adjacent acetabulum. 4. Normal visualized RIGHT pubic rami.
== END 2021-08-20 08:19 | disposition home or self-care (01) ==
LOC: RAD 08:22
PROVIDERS: PCP Family Medicine; Visit Provider Family Medicine
DX: M25.551 Pain in right hip (principal); M16.11 Unilateral primary osteoarthritis, right hip
CPT/HCPCS: 73700

== ENCOUNTER → 2021-10-13 14:51 | Outpatient (BNVA) | payer MEDICARE, OTHER, SELFPAY | PROVIDERS: PCP Family Medicine; Referring Provider Family Medicine; Visit Provider Specialist | DX: M16.0 Bilateral primary osteoarthritis of hip (principal); S32.9XXA Fracture of unspecified parts of lumbosacral spine and pelvis, initial encounter for closed fracture; X58.XXXA Exposure to other specified factors, initial encounter; M25.551 Pain in right hip | CPT/HCPCS: 73502; 99204; 99205 ==

== ENCOUNTER 2021-10-31 09:34 | Outpatient (CLI) | payer MEDICARE, OTHER, SELFPAY ==
--- NOTE | 2021-10-31 09:47 | NM_ITS ---
WS: [id number] THREE-PHASE BONE SCAN HISTORY: Possible pelvic fracture. COMPARISON: RIGHT hip radiograph 10/13/[address] 08/20/2021 Patient is is injected with 23.0 mCi Tc99m HDP intravenously. Immediate angiographic phase imaging is performed over the area of concern. Static blood pool imaging also performed. Two-hour whole-body sc intigrams performed in anterior and posterior projections. Additional large field of view imaging sub mitted as necessary. 3 phase bone scan images centered over the pelvis. Normal arterial phase and blood pool imaging. No a symmetry involving the hips or pelvis. On the delayed imaging there is intense increased uptake involving the RIGHT hip towards the acetabul um and femoral head. There is a small amount of increased uptake at the LEFT hip joint but to a lesse r extent than the RIGHT. Mild osteoarthritic changes involving the knees and AC joints bilaterally. Normal soft tissue uptake. Normal renal uptake. NM/NM bone 3 phase [id number] IMPRESSION: . 1. Early arterial and blood pool phase imaging over the pelvis is normal. 2. Intense uptake involving the RIGHT hip centered towards the acetabulum and femoral head. This corresponds to the severe hypertrophic bone formation and roberto int space narrowing on the prior CT. Favor this is probably all related to bone upon bone. Tiny microfractures could be present but they were not evident on t he CT. 3. Mild increased uptake at the LEFT hip from additional mild osteoarthritis.
== END 2021-10-31 09:35 | disposition home or self-care (01) ==
PROVIDERS: PCP Family Medicine; Visit Provider Specialist
DX: S32.9XXA Fracture of unspecified parts of lumbosacral spine and pelvis, initial encounter for closed fracture (principal); M16.0 Bilateral primary osteoarthritis of hip; X58.XXXA Exposure to other specified factors, initial encounter
CPT/HCPCS: 78315; A9561

== ENCOUNTER → 2021-11-12 09:14 | Outpatient (BNVA) | payer MEDICARE, OTHER, SELFPAY | PROVIDERS: PCP Family Medicine; Visit Provider Specialist | DX: M16.11 Unilateral primary osteoarthritis, right hip (principal) | CPT/HCPCS: 99214 ==

== ENCOUNTER → 2021-11-14 09:48 | Outpatient (BNVA) | payer MEDICARE, OTHER, SELFPAY | PROVIDERS: PCP Family Medicine; Visit Provider Internal Medicine Critical Care Medicine | DX: J41.0 Simple chronic bronchitis (principal); I27.82 Chronic pulmonary embolism; Z79.01 Long term (current) use of anticoagulants | CPT/HCPCS: 99214 ==

== ENCOUNTER 2022-04-01 12:59 | Inpatient (IN) | payer MEDICARE, OTHER, SELFPAY ==
[2022-04-01 13:07] VITALS: BP 124/71; PULSE 52; RESP 16; TEMP 36.6; O2SAT 93; BMI 36.9
--- NOTE | 2022-04-01 13:36 | XRR_ITS ---
PROCEDURE INFORMATION: Exam: XR Left Tibia and Fibula Exam date and time: 04/01/2022 1:41 PM Age: 82 years old Clinical indication: Injury or trauma; Fall; Lower leg; Foreign body involvement not specified; Injury details: History--lacerations on left leg TECHNIQUE: Imaging protocol: Radiologic exam of the Left tibia and fibula. Views: 2 views. COMPARISON: US ROR venous duplex LE LT 04/20/2016 4:56 PM FINDINGS: Bones/joints: Osseous structures are intact. No fracture or malalignment. Visualized joint surfaces are preserved. Soft tissues: Evidence of soft tissue injury anterolateral aspect left lower leg. Few tiny rounded radiopaque densities that appear vascular nature. No radiopaque foreign body detected. XR/XR tibia fibula LT 2V [id number] IMPRESSION: Soft tissue injury. No radiopaque foreign bodies detected.
--- NOTE | 2022-04-01 13:38 | W.ED.FALL ---
HPI - Fall General: Chief Complaint: Fall Stated Complaint: Lacerations Time Seen by Provider: 04/01/22 13:16 Source: patient and family Mode of arrival: EMS History of Present Illness: 82-year-old female who presents to the emergency room after a fall. She was trying to get into a car and missed the step on a running board her left leg slipped and she has a very severe large laceration with significant gapping in the wound. She is otherwise awake and alert denies any other injury she did not strike her head did not lose consciousness. She has a history of a DVT and PE as well as COPD and obstructive sleep apnea she is on Xarelto. There is no active bleeding time patient was initially seen in the emergency room. MD complaint: fall Fall from: standing Fall witnessed: yes, by family Place fall occurred: street Loss of consciousness: None Prolonged down time: no Context: tripped/slipped Location of injury - extremities: Left: lower leg Associated symptoms-after fall: Reports no associated symptoms; Denies abdominal pain or chest pain Review of Systems Const: Denies: fever(s), chills, body aches, change in appetite, fatigue or malaise ENMT: Denies: throat pain, ear or mastoid pain, nasal discharge or nasal congestion Card: Denies: chest pain, edema, dyspnea on exertion or orthopnea Resp: Denies: dyspnea, productive cough or non-productive cough GI: Denies: abdominal pain, nausea, vomiting, hematemesis, coffee ground emesis, diarrhea, constipation, bloating, hematochezia or melena : Denies: flank pain, difficulty voiding, dysuria, urinary frequency or urinary urgency Skin/Breast: Denies: rash or pruritus PFSH ED PFSH: Medical History COPD (chronic obstructive pulmonary disease) DVT (deep venous thrombosis) Essential (primary) hypertension Melanoma Pulmonary embolism Tracheomalacia, acquired Surgical History Cataract extraction status of left eye History of ear surgery History of hysterectomy History of lumpectomy of right breast Family History Father Parkinson's disease Mother Heart disease Sister Cancer Lung Sister Cancer Ovarian Social History Smoking and tobacco status: never smoked Quit status (tobacco): has quit using tobacco Year quit tobacco: 2001 - 1PPD x 40 Years Alcohol intake: current Alcohol intake frequency: holidays/special occasions only Lives independently: Yes Household members: none Marital status: Current occupational status: retired History of recent travel: No Current gender identity: Female Female Reproductive History: Spontaneous abortions: No Physical Exam Const: GENERAL APPEARANCE: cooperative and comfortable ORIENTATION/CONSCIOUSNESS: Yes awake, Yes oriented to person, Yes oriented to place and Yes oriented to time HENMT: COMMON NORMALS: normocephalic, atraumatic, hearing grossly normal bilaterally, external ears normal, EAC's normal, TM's normal bilaterally, Normal nasal mucous membranes and turbinates present, moist oral mucous membranes and oropharynx normal HEAD & SCALP: normocephalic and atraumatic NOSE: Normal nasal mucous membranes and turbinates present EXTERNAL EAR: Yes external ears normal EXTERNAL AUDITORY CANAL: EAC's normal TYMPANIC MEMBRANE: TM's normal bilaterally Eye: COMMON NORMALS: Equal, round and reactive pupils present, EOMs intact bilaterally, conjunctivae normal and no scleral icterus CONJUNCTIVA: Yes conjunctivae normal PUPIL: Yes Equal, round and reactive pupils present Neck/C-Spine: COMMON NORMALS: full ROM, no lymphadenopathy, supple and no JVD Resp: COMMON NORMALS: normal respiratory effort, No retractions, No use of accessory muscles and clear to auscultation bilaterally AUSCULTATION: clear to auscultation bilaterally Cardio: COMMON NORMALS: no JVD, regular rate, regular rhythm and No murmurs present (Cardio) RATE: regular rate RHYTHM: regular rhythm GI: COMMON NORMALS: Soft to palpation and No hepatosplenomegaly present AUSCULTATION: Yes normoactive bowel sounds PALPATION: Yes Soft to palpation, No Tenderness to palpation present (GI), No Guarding due to palpation present (GI) and Yes No hepatosplenomegaly present Extremity: LEFT LOWER EXTREMITY: Yes lower leg (Extensive left lower leg laceration see diagram) EXTREMITY IMAGE (FRONT): 1. 2. 3. Neuro: SENSORIUM/ORIENTATION: Yes oriented to person, Yes oriented to place and Yes oriented to time Skin: COMMON NORMALS: no rashes or lesions noted GENERAL SKIN EXAM: no rashes or lesions noted Procedures Laceration Laceration 1: Site: lower extremity Side (If applicable): left Size (cm): 50 Description: linear and flap Depth: simple, single layer Local Anesthetic: lidocaine 1% (Limited to the medial aspect of the laceration) Amount of anesthesia used (mL): 5 Pre-repair: wound explored, irrigated extensively and deep structures intact Skin layer closed with: nylon (Initial attempt with fluoroscopy cut through the skin, wound edges approximated with only ends of laceration were able to be primarily closed) Size (cm): 3-0 Technique: running and horizontal mattress Course Vital Signs: Vital signs: Vital Signs Temperature 98.1 F 04/06/22 12:00 Pulse Rate 65 04/06/22 12:00 Respiratory Rate 18 04/06/22 12:00 Blood Pressure 108/75 04/06/22 12:00 Pulse Oximetry 90 04/06/22 12:00 Oxygen Delivery Me thod 04/06/22 09:50 Oxygen Flow Rate 2 04/03/22 20:00 MDM - Fall Medical Decision Making Extensive laceration of the devascularization of large portions of the adjacent tissue. When initially attempted to approximate the tissue the tissue was so fragile the sutures actually cut through the tissue and creating more damage than they were helping. Several running sutures were applied as well as were appropriate and the skin consistency would allow horizontal mattress sutures were used. Advised family we would not be able to primarily close this due to swelling and aggressive attempts for primary closure at this time would lead to more tissue destruction and ultimately would cause more complications in the long run. The apex of the flap lateral to the anterior tibial laceration extending towards the knee is very concerning has a significant degree of ecchymosis and is pale and concerned may have lost some of its blood supply and if not we will slough due to ecchymosis creating a large defect. Reviewed with the patient and the family the best you can do in this setting at this time is to approximate the tissue and decrease the gap as much as possible. Along the ends of the laceration we were able to primarily close some of the wound but the majority remains open. Anesthesia for wound closure was provided by anesthesiology via a ultrasound-guided nerve block. 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 The area that patient still had some remaining feeling was anticipated by anesthesiology and they had advised us of their concern. This area was supplied with lidocaine with good result. Lidocaine was not used primarily because the extent of the injury such a large amount would need to be used would likely result in lidocaine toxicity addition lella would have worsened tissue swelling and made closure even more complicated. Discussed with hospitalist will also consult Dr. Lord patient will need monitoring at the wound clinic. Also advised him I suspect at some point once we get a sense of what the tissue remains viable that she may need to be referred for skin grafting however we are quite early in the process at this point. Patient's tetanus was updated and given a gram of Ancef will need to continue prophylactic antibiotics Medical Records I reviewed the patient's medical records. Lab Data I reviewed the patient's lab results. 04/02/22 02:23 04/05/22 03:46 Radiology Impressions Tibia/Fibula X-Ray 04/01/22 13:36 IMPRESSION: Soft tissue injury. No radiopaque foreign bodies detected. Renal Ultrasound 04/05/22 22:07 IMPRESSION: 1. No hydronephrosis of either kidney. 2. Bilateral renal cysts. 3. No sonographically visible solid renal mass. 4. Other findings discussed above. Laboratory Results WBC 8.7 10^3/uL (4.0-10.0) 04/02/22 02: RBC 4.08 10^6/uL (4.1-5.3) L 04/02/22 02: Hgb 12.9 g/dL (11.5-15.3) 04/02/22 02: Hct 40.8 % (37.0-47.0) 04/02/22 02: MCV 100.0 fl (81-99) H 04/02/22 02: MCH 31.6 pg (28.0-34.0) 04/02/22 02: MCHC 31.6 g/dL (30.0-36.0) 04/02/22 02: RDW 12.6 % (12.1-15.1) 04/02/22 02: Plt Count 146 10^3/cmm (130-400) 04/02/22 02: MPV 10.3 fL (7.4-10.4) 04/02/22 02: Neut % (Auto) 62.7 % 04/02/22 02: Lymph % (Auto) 21.2 % 04/02/22 02:23 [place] % (Auto) 14.5 % 04/02/22 02:23 Eos % (Auto) 0.7 % 04/02/22 02:23 Baso % (Auto) 0.6 % 04/02/22 02:23 Neut # (Auto) 5.47 10^3/uL (1.8-7.7) 04/02/22 02: Lymph # (Auto) 1.9 10^3/uL (0.8-4.8) 04/02/22 02: [place] # (Auto) 1.3 10^3/uL (0.2-0.9) H 04/02/22 02:23 Eos # (Auto) 0.1 10^3/uL (0.0-0.8) 04/02/22 02: Baso # (Auto) 0.1 10^3/uL (0.0-0.1) 04/02/22 02: Nucleated RBC % (auto) 0 % 04/02/22 02: Nucleated RBCs # 0.0 /100WBC 04/02/22 02:23 Sodium 140 mmol/L (136-145) 04/02/22 02:23 Potassium 4.7 mmol/L (3.5-5.1) 04/02/22 02: Chloride 106 mmol/L (98-107) 04/02/22 02: Carbon Dioxide 25 mmol/L (22-29) 04/02/22 02:23 Anion Gap 13.7 (5-19) 04/02/22 02:23 BUN 14 mg/dL (8-23) 04/02/22 02:23 Creatinine 1.1 mg/dL (0.5-0.9) H 04/02/22 02: GFR Calculation Not Reportable 04/02/22 02: Glucose 108 mg/dL (65-115) 04/02/22 02:23 Estimat Average Glucose 114 04/02/22 02:23 Hemoglobin A1c 5.6 % (4.0-6.0) 04/02/22 02:23 Calculated Osmolality 291 mOsm/kg (285-295) 04/02/22 02:23 Calcium 8.9 mg/dL (8.5-10.5) 04/02/22 02:23 Magnesium 1.9 mg/dL (1.7-2.3) 04/02/22 02:23 Iron 63 ug/dL (37-145) 04/01/22 18:40 TIBC 297 mcg/dl 04/01/22 18:40 % Saturation 21.2 % (20-50) 04/01/22 18:40 Unsat Iron Binding 234 ug/dL (112-347) 04/01/22 18:40 Total Bilirubin 0.4 mg/dL (0.15-1.2) 04/02/22 02: AST 16 U/L (0-32) 04/02/22 02: ALT 9 U/L (0-33) 04/02/22 02:23 Alkaline Phosphatase 65 U/L (35-105) 04/02/22 02:23 Total Protein 5.9 g/dL (6.6-8.7) L 04/02/22 02:23 Albumin 3.4 g/dL (3.5-5.2) L 04/02/22 02:23 Globulin 2.5 g/dL (1.3-4.6) 04/02/22 02:23 Triglycerides 97 mg/dL (0-150) 04/02/22 02:23 Cholesterol 108 mg/dL (0-200) 04/02/22 02:23 LDL Cholesterol, Calc 49 mg/dL (50-129) L 04/02/22 02:23 Total VLDL Cholesterol 19 mg/dL (0-30) 04/02/22 02:23 HDL Cholesterol 40 mg/dL (60-100) L 04/02/22 02:23 Cholesterol/HDL Ratio 2.70 mg/dL (0.0-4.40) 04/02/22 02:23 Vitamin B12 186 pg/mL (232-1245) L 04/01/22 18:40 Folate 4.4 ng/mL (4.8-37.3) L 04/01/22 18:40 Procalcitonin 0.07 ng/mL (0-0.5) 04/01/22 18:40 TSH 1.46 uIU/mL (0.27-4.20) 04/01/22 18:40 Urine Color Yellow (Yellow) 04/02/22 04:45 Urine Appearance Clear (CLEAR) 04/02/22 04:45 Urine pH 5 (5-7) 04/02/22 04:45 Ur Specific [place] 1.020 (1.005-1.030) 04/02/22 04:45 Urine Protein Neg (Negative) 04/02/22 04:45 Urine Glucose (UA) Norm (Normal) 04/02/22 04:45 Urine Ketones Negative (Negative) 04/02/22 04:45 Urine Blood Neg (Negative) 04/02/22 04:45 Urine Nitrate Negative (Negative) 04/02/22 04:45 Urine Bilirubin Neg (Negative) 04/02/22 04:45 Urine Urobilinogen Norm mg/dL (Negative) 04/02/22 04:45 Ur Leukocyte Esterase Negative (Negative) 04/02/22 04:45 Discharge Plan Discharge Patient Disposition: Admitted As Inpatient Admit Provider: Andres Yoon Clinical Impression: Laceration of leg, Tracheomalacia, acquired, COPD (chronic obstructive pulmonary disease), History of deep vein thrombosis Condition: Stable Discharge Diet: Cardiac Discharge Activity: As per PT/OT instructions Coding Level of Care Code ED [employer]ployment Technician for Ramírez López
[2022-04-01] MEDS: fentaNYL 50 mcg/mL INJ 2mL 25 MCG IVP (13:47)
[2022-04-01] MEDS: ceFAZolin 1,000 MG in sodium chloride 0.9% (plus) 50 ML 100 MG IV (13:48)
--- NOTE | 2022-04-01 15:01 | ANES.PREANE2 ---
Pre-Anesthetic Assessment Height/Weight: Height 1.73 m Weight 110.223 kg Temp Pulse Resp BP Pulse Ox O2 Del Method 97.9 F 52 L 16 124/71 93 04/01/22 13:07 04/01/22 13:07 04/01/22 13:07 04/01/22 13:07 04/01/22 13:07 04/01/22 13:07 Nerve Block Familial anesthetic complications: none Social No alcohol and No tobacco Airway Comments: Comments: patient has history of tracheobronchomalacia seen on CT - no symptoms of airway collapse Pulmonary Chronic Obstructive Pulmonary Disease (severe) and Sleep Apnea CV/HEM Deep Vein Thrombosis (on eliquis) and Hypertension Anesthetic Plan ASA status: 3 Anesthesia: Regional (specify below) Other: adductor canal + Popliteal Nerve block Risk of > 500 ml blood loss (7ml/kg in children): No Medications/Allergies Home Medications Medication Instructions Recorded Confirmed Last Taken Type diphenhydramine HCl 25 mg capsule 25 mg PO QDAY 05/01/19 04/01/22 04/01/22 History (Benadryl) simvastatin 40 mg tablet 40 mg PO DAILY 05/01/19 04/01/22 03/31/22 History spironolactone 50 mg tablet 50 mg PO DAILY 05/01/19 04/01/22 04/01/22 History albuterol sulfate 90 mcg/actuation 2 puff inhalation Q6H PRN 01/13/21 04/01/22 Unknown Rx aerosol inhaler (Ventolin HFA) bronchospasm #25.5 grams budesonide-formoterol HFA 160 2 puff inhalation BID #10.2 grams 01/13/21 04/01/22 Unknown Rx mcg-4.5 mcg/actuation aerosol inhaler (Symbicort) ipratropium 0.5 mg-albuterol 3 mg 3 ml inhalation Q6H PRN shortness 03/17/21 04/01/22 Unknown Rx (2.5 mg base)/3 mL nebulization of breath or wheezing 30 days #360 soln mL tiotropium bromide 18 mcg capsule 1 cap inhalation DAILY 30 days #60 04/09/21 04/01/22 04/01/22 Rx with inhalation device (Spiriva inhalations with HandiHaler) rivaroxaban 10 mg tablet (Xarelto) 10 mg PO DAILY #30 tabs 12/15/21 04/01/22 04/01/22 Rx acetaminophen 300 mg-codeine 30 mg 1 tab PO BID PRN pain #60 tabs 02/19/22 04/01/22 Unknown Rx tablet metoprolol tartrate 25 mg tablet 25 mg PO BID 04/01/22 04/01/22 04/01/22 History Allergies Allergy/AdvReac Type Severity Reaction Status Date / Time latex AdvReac Intermediate ADR-Itching Verified 04/01/22 13:44 clindamycin AdvReac ADR-Gastrointestinal Verified 04/01/22 13:44 Upset [facility] Anesthesia Medical History COPD (chronic obstructive pulmonary disease) DVT (deep venous thrombosis) Essential (primary) hypertension Melanoma Pulmonary embolism Tracheomalacia, acquired Surgical History Cataract extraction status of left eye History of ear surgery History of hysterectomy History of lumpectomy of right breast Family History Father Parkinson's disease Mother Heart disease Sister Cancer Lung Sister Cancer Ovarian Social History Smoking and tobacco status: never smoked Quit status (tobacco): has quit using tobacco Year quit tobacco: 2001 - 1PPD x 40 Years Alcohol intake: current Alcohol intake frequency: holidays/special occasions only Lives independently: Yes Household members: none Marital status: Current occupational status: retired History of recent travel: No Current gender identity: Female Female Reproductive History Spontaneous abortions: No Data Anesthesia Cardiac Studies: Echocardiogram Ultrasound 05/10/19
--- NOTE | 2022-04-01 15:05 | ANES.PROC ---
Anesthesia Procedures Procedure/Date: 04/01/22 Nerve Block ^: Nerve Block 1: Main Anesthesia: other (local) Time Out Performed: Yes Consent: requested by attending/covering physician, from patient, from other, risks and benefits reviewed and patient agrees to proceed Nerve block location: adductor canal (L) Anesthesia monitors applied: pulse oximetry, EKG, BP cuff and oxygen Nerve block position: supine Anesthetic Used: lidocaine 1% (5 cc) and ropivicaine 0.5% (15 cc) Ultrasound used to: recognize landmarks Nerve Stimulator Used?: No Interscalene/Femoral BLK: 4 stimuplex 21 g needle used for position and inplane approach, visualize local anesthetic spread and no vascular puncture identified Injection: neg aspiration of heme Patient Tolerated Procedure: well Complications: none Nerve Block 2: Main Anesthesia: other (local) Time Out Performed: Yes Consent: requested by attending/covering physician, from patient, from other, risks and benefits reviewed, patient agrees to proceed and emergency procedure Nerve block location: adductor canal (L) Anesthesia monitors applied: pulse oximetry, EKG, BP cuff and oxygen Nerve block position: supine Anesthetic Used: lidocaine 1% (5 cc) and ropivicaine 0.5% (15 cc) Ultrasound used to: recognize landmarks and visualize and ID femerol nerve Nerve Stimulator Used?: No Interscalene/Femoral BLK: 4 stimuplex 21 g needle used for position and inplane approach, visualize local anesthetic spread and no vascular puncture identified Injection: neg aspiration of heme Patient Tolerated Procedure: well Complications: none
[2022-04-01] MEDS: LORazepam 2 mg/mL INJ 1 mL 1 MG IVP (15:19)
[2022-04-01] MEDS: lidocaine 1% INJ 10 mL (per mL) INTRADERMA (18:09)
--- NOTE | 2022-04-01 18:20 | PM.HP ---
Providers/Chief Complaint Primary Care Provider: Aravind Samano DO Chief Complaint: Lacerations History of Present Illness Sana Coto is a 82 year old female with past medical history of pulmonary embolism and DVT on Xarelto, COPD, struct of sleep apnea not on BiPAP, hypertension who presented to the ER today after a fall while she was trying to climb into her car at which point she injured her leg. In the ER patient was found to have a significant gash on the left leg in the anterior region for which she received multiple skin approximation sutures. On examination patient was seen with daughter at bedside. Patient was awake and alert. Stating pain is well controlled, complaining of mild tingling in her foot but able to wiggle her toes around. Denies any nausea, vomiting, headache, chest pain. Denies any similar complaints prior to fall. In the ER patient received multiple sutures and approximation of skin as much as possible. Dr. Lord was consulted. Review of Systems General: Reports: 10 or more systems reviewed and unremarkable except in HPI and below Const: Denies: fever(s), chills, body aches, change in appetite, change in weight, malaise, night sweats, diaphoresis, change in sleep pattern, daytime sleepiness or snoring Eyes: Denies: change in vision, blurry vision, photophobia, eye discomfort or eye discharge ENMT: Denies: throat pain, enlarged tonsils, hoarseness, mouth pain, oral sores, dry mouth, tinnitus, nasal congestion or post nasal drip Card: Denies: chest pain, palpitations, irregular heart rhythm, edema, swelling of feet/ankles, lightheadedness, syncope, pre-syncope, dyspnea on exertion, orthopnea, leg pain with exertion or acrocyanosis Resp: Denies: dyspnea, productive cough, non-productive cough, wheezing, stridor, pain on inspiration, change in phlegm color, hemoptysis or chest congestion GI: Denies: abdominal pain, nausea, vomiting, hematemesis, coffee ground emesis, dysphagia, heartburn, diarrhea, constipation, bloating, GI cramping, change in bowel habits, pain on defecation, hematochezia or melena : Denies: flank pain, dysuria, urinary frequency, urinary urgency, urinary hesitancy, nocturia or hematuria Musc: Denies: neck pain, back pain, extremity pain, joint pain, joint swelling, joint redness, joint stiffness or limited range of motion Neuro: Denies: headache(s), numbness in extremities, weakness in extremities, sensory changes, lack of coordination, difficulty walking, frequent falls, dizziness, vertigo, confusion, Slurred speech present, difficulty communicating thoughts or seizure-like activity Psych: Denies: anxiety, depression, mood swings, panic attacks, hopelessness or irritability Endo: Denies: polyuria, polydipsia, tired all the time, cold intolerance, excessive sweating, flushing or heat intolerance Renan/Lymph: Denies: easy bruising or easy bleeding All/Imm: Denies: tongue swelling, facial swelling or acute wheezing Medications/Allergies Home Medications Medication Instructions Recorded Confirmed Last Taken Type diphenhydramine HCl 25 mg capsule 25 mg PO QDAY 05/01/19 04/01/22 04/01/22 History (Benadryl) simvastatin 40 mg tablet 40 mg PO DAILY 05/01/19 04/01/22 03/31/22 History spironolactone 50 mg tablet 50 mg PO DAILY 05/01/19 04/01/22 04/01/22 History albuterol sulfate 90 mcg/actuation 2 puff inhalation Q6H PRN 01/13/21 04/01/22 Unknown Rx aerosol inhaler (Ventolin HFA) bronchospasm #25.5 grams budesonide-formoterol HFA 160 2 puff inhalation BID #10.2 grams 01/13/21 04/01/22 Unknown Rx mcg-4.5 mcg/actuation aerosol inhaler (Symbicort) ipratropium 0.5 mg-albuterol 3 mg 3 ml inhalation Q6H PRN shortness 03/17/21 04/01/22 Unknown Rx (2.5 mg base)/3 mL nebulization of breath or wheezing 30 days #360 soln mL tiotropium bromide 18 mcg capsule 1 cap inhalation DAILY 30 days #60 04/09/21 04/01/22 04/01/22 Rx with inhalation device (Spiriva inhalations with HandiHaler) rivaroxaban 10 mg tablet (Xarelto) 10 mg PO DAILY #30 tabs 12/15/21 04/01/22 04/01/22 Rx acetaminophen 300 mg-codeine 30 mg 1 tab PO BID PRN pain #60 tabs 02/19/22 04/01/22 Unknown Rx tablet metoprolol tartrate 25 mg tablet 25 mg PO BID 04/01/22 04/01/22 04/01/22 History Allergies Allergy/AdvReac Type Severity Reaction Status Date / Time latex AdvReac Intermediate ADR-Itching Verified 04/01/22 13:44 clindamycin AdvReac ADR-Gastrointestinal Verified 04/01/22 13:44 Upset PFSH Acute PFSH: Medical History COPD (chronic obstructive pulmonary disease) DVT (deep venous thrombosis) Essential (primary) hypertension Melanoma Pulmonary embolism Tracheomalacia, acquired Surgical History Cataract extraction status of left eye History of ear surgery History of hysterectomy History of lumpectomy of right breast Family History Father Parkinson's disease Mother Heart disease Sister Cancer Lung Sister Cancer Ovarian Social History Smoking and tobacco status: never smoked Quit status (tobacco): has quit using tobacco Year quit tobacco: 2001 - 1PPD x 40 Years Alcohol intake: current Alcohol intake frequency: holidays/special occasions only Lives independently: Yes Household members: none Marital status: Current occupational status: retired History of recent travel: No Current gender identity: Female Female Reproductive History: Spontaneous abortions: No Vitals/I&O/Wt Last Vital Signs Temp 97.9 F 04/01/22 13:07 Pulse 52 L 04/01/22 13:07 Resp 16 04/01/22 13:07 BP 124/71 04/01/22 13:07 Pulse Ox 93 04/01/22 13:07 O2 Del Method 04/01/22 13:07 04/01/22 04/01/22 04/01/22 06:59 14:59 22:59 Intake Total 50 / 50 Balance 50 / 50 Weight last 48 hrs Weight 110.223 kg Physical Exam Narrative: General: No acute distress, AO x3 HEENT: PERRLA, pupils bilaterally equal and reactive Chest: Normal vesicular breath sounds, no added sounds, equal good air entry bilaterally CVS: S1-S2 regular, no murmurs, no tachycardia, no gallops, no rubs Abdomen: Soft, nontender, no organomegaly, bowel sounds present Neuro: No focal deficits, no facial deformity, AO x3, power 5/5 in all limbs Data 04/02/22 02:23 04/02/22 02:23 A&P Assessment and plan (1) Laceration: Empirically start on Zosyn. Wound care as per Dr. Lord. Elevate leg. Claudio catheter. Neurovascular checks every 4 hourly. Physical therapy evaluation. (2) DVT (deep venous thrombosis): (3) COPD (chronic obstructive pulmonary disease): Qualifiers: COPD type: chronic bronchitis Chronic bronchitis type: simple Qualified Code(s): J41.0 - Simple chronic bronchitis (4) Pulmonary embolism: Chronic history of pulmonary embolism. Chronically on and off 2 L of oxygen when needed. Continue with home dose of Xarelto. Will monitor hemoglobin. Qualifiers: Acute cor pulmonale presence: unspecified Chronicity: chronic Pulmonary embolism type: other Qualified Code(s): I27.82 - Chronic pulmonary embolism Plan Discharge plan: Patient lives by herself and has a significant gash and laceration on the leg with high possibility of poor healing and superficial infection if she does not get aggressive wound care. Patient would benefit from placement to SNF for wound care and physical therapy. Patient and patient's daughter is agreeable. Case management consult placed. Full code. Cardiac diet. Xarelto will suffice for DVT prophylaxis Famotidine for PUD prophylaxis Attestations Medical Necessity Statement*: Admission for more than 2 midnights for management of extensive lower limb laceration/wound requiring extensive wound care and possible safe discharge planning because patient is at high risk of wound infection and possible amputation. Time Spent in Patient Care: Greater than 35 minutes Coding Level of Care Code Acute Processing Associate for [facility] Fwd Diagnoses Laceration DVT (deep venous thrombosis) I82.409 COPD (chronic obstructive pulmonary disease) J41.0 COPD type: chronic bronchitis Chronic bronchitis type: simple Pulmonary embolism I27.82 Acute cor pulmonale presence: unspecified Chronicity: chronic Pulmonary embolism type: other
--- NOTE | 2022-04-01 18:29 | PC.NURSE ---
Versed ordered by Kevin but not given.
[2022-04-01 19:13] LABS: Basophils % 0.5 %; Eosinophils # 0.1 10^3/uL (0.0-0.8); Eosinophils % 0.7 %; Hematocrit 43.6 % (37.0-47.0); Hemoglobin 13.8 g/dL (11.5-15.3); Lymphocytes # 1.8 10^3/uL (0.8-4.8); Lymphocytes % 24.1 %; Mean Corpuscular HGB Conc 31.7 g/dL (30.0-36.0); Mean Corpuscular Hemoglobin 31.9 pg (28.0-34.0); Mean Corpuscular Volume 100.7 fl (81-99); Mean Platelet Volume 10.4 fL (7.4-10.4); Monocytes # 0.7 10^3/uL (0.2-0.9); Monocytes % 10.1 %; Neutrophils % 64.3 %; Nucleated Red Blood Cells % 0 %; Platelet Count 171 10^3/cmm (130-400); Red Blood Count 4.33 10^6/uL (4.1-5.3); Red Cell Distribution Width 12.6 % (12.1-15.1); White Blood Count 7.3 10^3/uL (4.0-10.0)
[2022-04-01 19:15] VITALS: BP 96/65; PULSE 57; RESP 21; TEMP 36.6; O2SAT 94
--- NOTE | 2022-04-01 19:52 | PC.NURSE ---
1830 medications not given in ED. Claudio not placed in ED. Claudio placement and ordered medications will be late.
--- NOTE | 2022-04-01 19:53 | PM.CONSULT ---
Providers/Reason For Consult Consulting Physician/Specialty*: Dr. Lord/thoracic surgery Reason for Consult*: Complex laceration left lower extremity Requesting Physician: Dr. Brown Attending Physician: Andres Yoon MD Primary Care Provider: Aravind Samano DO History of Present Illness History of Present Illness Sana Coto is an 82 year old female who presented to the emergency department today with a complex laceration of the medial, pretibial, and lateral aspects of the mid left lower extremity after striking a car door and attempting to enter the vehicle. Attempted primary closure was performed by Dr. Schuster with some areas of this wound being unable to be closed due to tearing of the dermis and epidermis related to tension during attempted primary closure. Portions of the wound laterally were closed and I was consulted concerning wound management for remaining aspects of the wound. She has numerous comorbidities occluding anticoagulation with Xarelto related to previous pulmonary embolisms. She was admitted for prophylactic antibiotic therapy and further evaluation of her wound. Currently, she is resting comfortably in room 276 on the [facility]. Review of Systems Const: Reports: body aches; Denies: fever(s) or chills Eyes: Denies: change in vision ENMT: Denies: throat pain or hoarseness Card: Reports: dyspnea on exertion; Denies: chest pain or palpitations Resp: Denies: dyspnea GI: Denies: abdominal pain, nausea, vomiting or hematemesis Musc: Reports: back pain and muscle weakness Skin/Breast: Denies: rash, pruritus or erythema Medications/Allergies Home Medications Medication Instructions Recorded Confirmed Last Taken Type diphenhydramine HCl 25 mg capsule 25 mg PO QDAY 05/01/19 04/01/22 04/01/22 History (Benadryl) simvastatin 40 mg tablet 40 mg PO DAILY 05/01/19 04/01/22 03/31/22 History spironolactone 50 mg tablet 50 mg PO DAILY 05/01/19 04/01/22 04/01/22 History albuterol sulfate 90 mcg/actuation 2 puff inhalation Q6H PRN 01/13/21 04/01/22 Unknown Rx aerosol inhaler (Ventolin HFA) bronchospasm #25.5 grams budesonide-formoterol HFA 160 2 puff inhalation BID #10.2 grams 01/13/21 04/01/22 Unknown Rx mcg-4.5 mcg/actuation aerosol inhaler (Symbicort) ipratropium 0.5 mg-albuterol 3 mg 3 ml inhalation Q6H PRN shortness 03/17/21 04/01/22 Unknown Rx (2.5 mg base)/3 mL nebulization of breath or wheezing 30 days #360 soln mL tiotropium bromide 18 mcg capsule 1 cap inhalation DAILY 30 days #60 04/09/21 04/01/22 04/01/22 Rx with inhalation device (Spiriva inhalations with HandiHaler) rivaroxaban 10 mg tablet (Xarelto) 10 mg PO DAILY #30 tabs 12/15/21 04/01/22 04/01/22 Rx acetaminophen 300 mg-codeine 30 mg 1 tab PO BID PRN pain #60 tabs 02/19/22 04/01/22 Unknown Rx tablet metoprolol tartrate 25 mg tablet 25 mg PO BID 04/01/22 04/01/22 04/01/22 History Allergies Allergy/AdvReac Type Severity Reaction Status Date / Time latex AdvReac Intermediate ADR-Itching Verified 04/01/22 13:44 clindamycin AdvReac ADR-Gastrointestinal Verified 04/01/22 13:44 Upset PFSH Acute PFSH: Medical History COPD (chronic obstructive pulmonary disease) DVT (deep venous thrombosis) Essential (primary) hypertension Melanoma Pulmonary embolism Tracheomalacia, acquired Surgical History Cataract extraction status of left eye History of ear surgery History of hysterectomy History of lumpectomy of right breast Family History Father Parkinson's disease Mother Heart disease Sister Cancer Lung Sister Cancer Ovarian Social History Smoking and tobacco status: never smoked Quit status (tobacco): has quit using tobacco Year quit tobacco: 2001 - 1PPD x 40 Years Alcohol intake: current Alcohol intake frequency: holidays/special occasions only Lives independently: Yes Household members: none Marital status: Current occupational status: retired History of recent travel: No Current gender identity: Female Female Reproductive History: Spontaneous abortions: No Vitals/I&O/Wt Last Vital Signs Temp 97.9 F 04/01/22 13:07 Pulse 52 L 04/01/22 13:07 Resp 16 04/01/22 13:07 BP 124/71 04/01/22 13:07 Pulse Ox 93 04/01/22 13:07 O2 Del Method 04/01/22 13:07 04/01/22 04/01/22 04/01/22 06:59 14:59 22:59 Intake Total 50 / 50 Balance 50 / 50 Weight last 48 hrs Weight 243 lb Physical Exam Extremity: NARRATIVE EXTREMITY EXAM: There is a complex partially closed wound of the mid left leg extending medially across the tibia and then laterally in a transverse fashion. There is a separate wound running somewhat obliquely getting proximally below the knee and extending medially toward the midline. Portion of this wound was able to be closed. Abdominal wound measures 15 cm in length by 1.5 cm in width. Anterior wound measures 16 cm in length by 1.5 cm in width. There is a close incision further laterally which measures 6.5 cm in length. There is some bulging soft tissue in the lateral and anterior wound. OTHER: 2+ palpable left dorsalis pedis pulse. 1+ palpable posterior tibial pulse. Neuro: OTHER: She is unable to flex or extend her toes on the left foot, no she did receive an abductor canal nerve block by Dr. Parisi to allow for wound closure in the emergency department. She has a history of tracheomalacia and it was felt hesitant to attempt excessive sedation for concerns of possible airway compromise. Data 04/01/22 18:40 04/01/22 18:40 A&P Assessment and plan (1) Laceration: Given her liver comorbidities, I recommend continued conservative management of her left lower extremity wound. Dr. Brown and his team in a nice job of approximation of this difficult wound odor clearly areas which would not prompted close of retention without excessive damage to the dermis. I would recommend plans for continued management with use of care home care to allow for limited mobility and for nursing support. The amount of further soft tissue damage may be another 24 to 48 hours to completely ascertain and indeed there may be further soft tissue loss. I would attempt to leave the sutures in place for up to 3 weeks and then consider other modalities to address remaining soft tissue exposure after this time. This may require the use of the wound VAC. For now continue with dressing changes with cleaning of the wound daily with saline along with application of Xeroform gauze and dry dressing. Consult Attestations Medical Necessity Statement: Complex acute soft tissue wound left lower extremity Coding Level of Care Code Acute Front Maker Lock[employer]ch for [facility] Diagnoses Laceration
[2022-04-01 20:00] LABS: Procalcitonin 0.07 ng/mL (0-0.5); Thyroid Stimulating Hormone 1.46 uIU/mL (0.27-4.20); Vitamin B12 186 pg/mL (232-1245)
[2022-04-01 20:05] LABS: Folate Level 4.4 ng/mL (4.8-37.3)
[2022-04-01 20:11] LABS: Anion Gap 14.3 (5-19); Blood Urea Nitrogen 13 mg/dL (8-23); Calcium 9.5 mg/dL (8.5-10.5); Carbon Dioxide 27 mmol/L (22-29); Chloride 102 mmol/L (98-107); Glucose 88 mg/dL (65-115); Iron 63 ug/dL (37-145); Osmolality Calculated 288 mOsm/kg (285-295); Percent Saturation 21.2 % (20-50); Potassium 4.3 mmol/L (3.5-5.1); Sodium 139 mmol/L (136-145); Total Iron Binding Capacity 297 mcg/dl; Unsaturated Iron Binding 234 ug/dL (112-347)
[2022-04-01] MEDS: famotidine 20 mg/2 mL INJ IVP (20:20)
[2022-04-01] MEDS: piperacillin-tazobactam 3.375 GM in sodium chloride 0.9% (plus) 50 ML IV (20:20)
--- NOTE | 2022-04-01 20:25 | PC.NURSE ---
Patient refusing barajas catheter. Patient states I'll use a bedpan before I have one of those things.
[2022-04-01] MEDS: HYDROcodone-acetaminophen 5-325 mg Tablet 1 TAB PO (22:41)
[2022-04-02] VITALS (11 sets, daily range): BP systolic 104–136; BP diastolic 66–82; PULSE 55–71; RESP 16–23; TEMP 36.6–36.8; O2SAT 91–98
[2022-04-02 02:54] LABS: Basophils # 0.1 10^3/uL (0.0-0.1); Basophils % 0.6 %; Eosinophils # 0.1 10^3/uL (0.0-0.8); Eosinophils % 0.7 %; Hematocrit 40.8 % (37.0-47.0); Hemoglobin 12.9 g/dL (11.5-15.3); Lymphocytes # 1.9 10^3/uL (0.8-4.8); Lymphocytes % 21.2 %; Mean Corpuscular HGB Conc 31.6 g/dL (30.0-36.0); Mean Corpuscular Hemoglobin 31.6 pg (28.0-34.0); Mean Platelet Volume 10.3 fL (7.4-10.4); Monocytes # 1.3 10^3/uL (0.2-0.9); Monocytes % 14.5 %; Neutrophils # 5.47 10^3/uL (1.8-7.7); Neutrophils % 62.7 %; Nucleated Red Blood Cells % 0 %; Platelet Count 146 10^3/cmm (130-400); Red Blood Count 4.08 10^6/uL (4.1-5.3); Red Cell Distribution Width 12.6 % (12.1-15.1); White Blood Count 8.7 10^3/uL (4.0-10.0)
[2022-04-02 03:19] LABS: Estmated Average Glucose 114; Hemoglobin A1C 5.6 % (4.0-6.0)
[2022-04-02 03:25] LABS: Alanine Aminotransferase 9 U/L (0-33); Albumin Level 3.4 g/dL (3.5-5.2); Alkaline Phosphatase 65 U/L (35-105); Anion Gap 13.7 (5-19); Aspartate Amino Transferase 16 U/L (0-32); Blood Urea Nitrogen 14 mg/dL (8-23); Calcium 8.9 mg/dL (8.5-10.5); Carbon Dioxide 25 mmol/L (22-29); Chloride 106 mmol/L (98-107); Globulin 2.5 g/dL (1.3-4.6); Glucose 108 mg/dL (65-115); Magnesium 1.9 mg/dL (1.7-2.3); Osmolality Calculated 291 mOsm/kg (285-295); Potassium 4.7 mmol/L (3.5-5.1); Sodium 140 mmol/L (136-145); Total Bilirubin 0.4 mg/dL (0.15-1.2); Total Protein 5.9 g/dL (6.6-8.7)
[2022-04-02 03:29] LABS: Cholesterol 108 mg/dL (0-200); HDL Cholesterol 40 mg/dL (60-100); LDL Cholesterol Calculated 49 mg/dL (50-129); Triglycerides 97 mg/dL (0-150); VLDL Cholestrol Calculation 19 mg/dL (0-30)
[2022-04-02] MEDS: piperacillin-tazobactam 3.375 GM in sodium chloride 0.9% (plus) 50 ML IV ×3 (03:45→20:27)
--- NOTE | 2022-04-02 03:53 | PC.NURSE ---
Addendum entered by Kellen Dyson RN 04/02/22 03:57: Patient educated again on barajas catheter. Patient states I might end up having to have it if I can't get up, but let me try the bedpan again first. Original Note: At beginning of shift, Dr. Justice in room to see and re-dress wound. Per day shift charge nurse and warehouse shift supervisor charge nurse, Physician stated that patient is to be bedrest. Patient was unable to move her toes on left foot upon physician assessment at beginning of shift. Patient received block in ED prior sutures. Patient unable to void in bedpan. Patient states I can't go laying down. I know I could go if they'd let me get up to the bathroom. Patient has attempted to use bedpan x3 throughout shift. Patient's left foot is warm with good pulses, but patient is still unable to move toes on left foot.
[2022-04-02 05:10] LABS: Add Urine Microscopic? NO; Charge for UA Resulting for Rev
[2022-04-02 05:21] LABS: Bilirubin Urine Neg (Negative); Blood Urine Neg (Negative); Glucose Urine UA Norm (Normal); Ketones Urine Negative (Negative); Leukocyte Esterase Urine Negative (Negative); Nitrate Urine Negative (Negative); Protein Urine Neg (Negative); Urine Appearance Clear (CLEAR); Urine Color Yellow (Yellow); Urobilinogen Urine Norm (Negative); pH Urine 5 (5-7)
--- NOTE | 2022-04-02 08:28 | ANE.PACU2 ---
Inpatient post-anesthesia follow up: Airway intact: Yes Vital signs: Temperature 98.0 F Pulse Rate 59 Respiratory Rate 16 Blood Pressure 134/82 Pulse Oximetry 98 Oxygen Delivery Me thod Nasal Cannula Oxygen Flow Rate Fraction of Inspir ed Oxygen Hydration adequate: Yes Nausea and vomiting: No Pain level: 1 Mental status: Baseline Additional Comments: Block still mostly intact, ability to move toes returning. patient did require additional local anesthetic over the adductor distribution
--- NOTE | 2022-04-02 09:59 | PM.PN ---
Subjective Subjective: No acute events overnight. On examination patient lying comfortably in bed. States pain is well controlled but complaining of some numbness in the toes. Able to wiggle her toes when possible. Sensations are intact. Feet are warm to touch. Patient requesting to discontinue hydrocodone as she thinks it is too strong for her. She states she usually takes Tylenol extra strength with codeine at home when needed. We discussed about possible use of tramadol and she is agreeable to try as she has used it in the past. Asking if she can get out of bed and will be sitting on chair with legs elevated as laying in the bed and is causing her to have back pain. Vitals/I&O/Wt Last Vital Signs Temp 98.0 F 04/02/22 08:00 Pulse 71 04/02/22 08:52 Resp 18 04/02/22 08:52 BP 134/82 04/02/22 08:00 Pulse Ox 95 04/02/22 08:52 O2 Del Method 04/02/22 08:52 04/01/22 04/02/22 04/02/22 22:59 06:59 14:59 Intake Total 100 / 100 0 / 100 170 / 170 Output Total 0 / 0 800 / 800 Balance 100 / 100 -800 / -700 170 / 170 Weight last 48 hrs Weight 106.64 kg Weight 110.223 kg Physical Exam Narrative: EXAM NARRATIVE: General: No acute distress, AO x3, NC oxygen supplementation HEENT: PERRLA, pupils bilaterally equal and reactive Chest: Bilateral normal vesicular breath sounds all over the lung whitaker with occasional rhonchi CVS: S1-S2 regular, no murmurs, no tachycardia, no gallops, no rubs Abdomen: Soft, nontender, no organomegaly, bowel sounds present, morbidly obese Neuro: No focal deficits, no facial deformity, AO x3, power 5/5 in all limbs except left lower limb which was not examined secondary to wound. Pulses bilaterally palpable, feet warm to touch, patient is able to wiggle her toes Urinary Catheter Management: Claudio: Cath Placed During This Visit: yes Reason for Continuing Indwelling Catheter: Required Immobilization for Trauma or Surgery or Anesthesia Urinary Catheter Date of Insertion: 04/02/22 Urinary Catheter Time of Insertion: 05:00 Data 04/02/22 02:23 04/02/22 02:23 A&P Assessment and plan (1) Laceration: Empirically start on Zosyn. Wound care as per Dr. Lord. Elevate leg. Claudio catheter. Neurovascular checks every 4 hourly. Physical therapy evaluation. Out of bed to chair. Tylenol extra strength every 8 hourly as needed, tramadol 50 mg every 4 hours as needed for pain. Stop Elliott as per patient's request. (2) COPD (chronic obstructive pulmonary disease): No exacerbation. Wean down oxygen supplementation keeping saturation over 88%. DuoNebs every 6 hours as needed. Incentive spirometry. Qualifiers: COPD type: chronic bronchitis Chronic bronchitis type: simple Qualified Code(s): J41.0 - Simple chronic bronchitis (3) Pulmonary embolism: Chronic history of pulmonary embolism. Chronically on and off 2 L of oxygen when needed. Continue with home dose of Xarelto. Will monitor hemoglobin. Qualifiers: Pulmonary embolism type: other Chronicity: chronic Acute cor pulmonale presence: unspecified Qualified Code(s): I27.82 - Chronic pulmonary embolism (4) DVT (deep venous thrombosis): Plan Discharge plan: Patient lives by herself and has a significant gash and laceration on the leg with high possibility of poor healing and superficial infection if she does not get aggressive wound care. Patient would benefit from placement to SNF for wound care and physical therapy. Patient and patient's daughter is agreeable. Case management alerted. Physical therapy evaluation. Full code Cardiac diet. Xarelto will suffice for DVT prophylaxis Famotidine for PUD prophylaxis Attestations Medical Necessity Statement*: Requires further hospitalization for extensive wound care and physical therapy as patient is at high risk of wound infection leading to possible amputation Time Spent in Patient Care: Greater than 35 minutes Coding Level of Care Code Acute Cardiac Nurse for [facility] Fwd Diagnoses Laceration COPD (chronic obstructive pulmonary disease) J41.0 COPD type: chronic bronchitis Chronic bronchitis type: simple Pulmonary embolism I27.82 Pulmonary embolism type: other Chronicity: chronic Acute cor pulmonale presence: unspecified DVT (deep venous thrombosis) I82.409
[2022-04-02] MEDS: atorvastatin 40 mg Tablet 20 MG PO (10:01)
[2022-04-02] MEDS: rivaroxaban 10 mg Tablet PO (10:02)
[2022-04-02] MEDS: metoprolol tartrate 25 mg Tablet PO ×2 (10:02→18:06)
[2022-04-02] MEDS: spironolactone 25 mg Tablet 50 MG PO (10:03)
[2022-04-02] MEDS: ferrous gluconate 324 mg Tablet PO ×2 (10:04→18:05)
[2022-04-02] MEDS: folic acid 1 mg Tablet PO ×2 (10:05→18:05)
[2022-04-02] MEDS: famotidine 20 mg/2 mL INJ IVP ×2 (10:05→20:27)
[2022-04-02] MEDS: cyanocobalamin 1,000 mcg/mL SDV 1000 MCG IM (10:06)
[2022-04-02] MEDS: acetaminophen-codeine 300-30mg Tablet 1 TAB PO ×2 (10:31→20:26)
--- NOTE | 2022-04-02 11:03 | PC.CHAP ---
Pastoral Care Encounter/Spiritual Assessment Type of Contact [] Declined botany professor visit [] Patient/Family/Request visit [] Outpatient visit [] Follow-up visit [] Physician referral [] Code/Alert [x] Routine visit [] Staff referral [] Actively dying [] Patient sleeping [] Family support [] [] Out of room [] Palliative care [] [x] Receiving care in room [] Pre-surgical visit [] Trauma [x] Long length of stay [] ICU visit [] Other: Relational/Emotional Strength [x] Patient feels connected with others/family/visitors/staff [] Distress [] Loneliness/isolation [] Abandonment Spirituality of Patient [x] Person of Caterina [x] Attends Bahai of their Caterina [] Believes in Prayer [] Reads Bible or Christian materials [] There are Spiritual issues to be addressed Emergency Medicine Physician Interventions [x] Prayer [x] Active listening [x] Non-anxious presence [x] Spiritual/emotional support [] Crisis/trauma care [x] Spiritual counseling [] Bereavement support [] Provided bereavement packet [] Provided Bible/devotional materials [] Provided toy/stuffed animal, coloring book to patient or family member [] Provided Communion [] Anointing/[place] [] Salvation [x] Completed spiritual assessment [] Other: Impact on Illness or Injury [] Angry [] Fearful [] Anxious [] Often cries [] Exhaustion [] Unable to work [] Unable to attend rastafari [] Unable to walk/stand [] Unable to read [] Unable to drive [] Unable to eat/drink [] Unable to sleep [] Unable to be with family [] Patient intubated [] Other: Summary senior congesation several otto issues well be going to nurcing home for care +1 family to see about her care has a good attitude Time spent with patient 10 mins
[2022-04-02] MEDS: TRAMadol 50 mg Tablet PO ×2 (14:47→19:05)
[2022-04-02] MEDS: ipratropium-albuterol 3 mL Neb INHALATION (15:52)
--- NOTE | 2022-04-02 18:40 | P.PN_ITS ---
Subjective Subjective: I saw Ms. Coto on rounds this morning. Sensation and motor has returned to her left foot. Dressing from last night were changed. Nini and Xeroform gauze roll Kerlix wrap reapplied. Tender of skin between her 2 longitudinal incisions he has mostly dusky but not significant different from my exam last night. Vitals/I&O/Wt Last Vital Signs Temp 97.9 F 04/02/22 16:00 Pulse 59 L 04/02/22 16:01 Resp 16 04/02/22 16:00 BP 119/73 04/02/22 16:00 Pulse Ox 92 04/02/22 16:00 O2 Del Method 04/02/22 16:00 04/02/22 04/02/22 04/02/22 06:59 14:59 22:59 Intake Total 0 / 100 170 / 170 50 / 220 Output Total 800 / 800 550 / 550 Balance -800 / -700 -380 / -380 50 / -330 Weight last 48 hrs Weight 235 lb 1.6 oz Weight 243 lb Physical Exam Extremity: NARRATIVE EXTREMITY EXAM: Left lower extremity incision closures remain intact without significant change. Modest left lower extremity edema. No advancing erythema. No purulence. Dressings were applied utilizing Nini over the unclosed portions of the wound in addition to local gauze and curette. Urinary Catheter Management: Claudio: Cath Placed During This Visit: yes Reason for Continuing Indwelling Catheter: Other Urinary Catheter Date of Insertion: 04/02/22 Urinary Catheter Time of Insertion: 05:00 Data 04/02/22 02:23 04/02/22 02:23 Micro: Microbiology 04/02/22 03:45 MRSA Culture - Final Nose 04/02/22 04:45 Bacterial Antigens - Final Urine Kidney A&P Assessment and plan (1) Laceration: Recommend continuing daily dressing changes with the use of Nini, gauze, and Kerlix roll. Leg elevation as much as possible. She may ambulate with assistance. Following discharge to nursing home care facility, wound care services will see her onsite or in our clinic as needed. Attestations Medical Necessity Statement*: Complex traumatic laceration left worsening Coding Level of Care Code Acute Code for [facility] Fwd Diagnoses Laceration
[2022-04-03] VITALS (10 sets, daily range): BP systolic 112–122; BP diastolic 63–76; PULSE 55–74; RESP 16–19; TEMP 36.4–36.7; O2SAT 91–95
[2022-04-03] MEDS: piperacillin-tazobactam 3.375 GM in sodium chloride 0.9% (plus) 50 ML IV ×3 (03:55→19:56)
[2022-04-03] MEDS: acetaminophen-codeine 300-30mg Tablet 1 TAB PO ×3 (04:45→20:51)
[2022-04-03] MEDS: spironolactone 25 mg Tablet 50 MG PO (09:55)
[2022-04-03] MEDS: ferrous gluconate 324 mg Tablet PO ×2 (09:55→17:39)
[2022-04-03] MEDS: cyanocobalamin 1,000 mcg/mL SDV 1000 MCG IM (09:56)
[2022-04-03] MEDS: metoprolol tartrate 25 mg Tablet PO (09:56)
[2022-04-03] MEDS: atorvastatin 40 mg Tablet 20 MG PO (09:56)
[2022-04-03] MEDS: folic acid 1 mg Tablet PO ×2 (09:56→17:39)
[2022-04-03] MEDS: rivaroxaban 10 mg Tablet PO (09:56)
[2022-04-03] MEDS: TRAMadol 50 mg Tablet PO (10:00)
[2022-04-03] MEDS: famotidine 20 mg/2 mL INJ IVP ×2 (10:11→19:56)
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
[2022-04-03] MEDS: docusate sodium 100 mg Capsule PO (20:44)
[2022-04-04] VITALS (8 sets, daily range): BP systolic 113–138; BP diastolic 71–83; PULSE 56–88; RESP 16–18; TEMP 36.4–36.7; O2SAT 90–98
[2022-04-04] MEDS: piperacillin-tazobactam 3.375 GM in sodium chloride 0.9% (plus) 50 ML IV ×3 (04:16→20:59)
[2022-04-04] MEDS: acetaminophen-codeine 300-30mg Tablet 1 TAB PO ×2 (05:11→20:58)
[2022-04-04] MEDS: famotidine 20 mg/2 mL INJ IVP ×2 (09:23→20:59)
[2022-04-04] MEDS: ferrous gluconate 324 mg Tablet PO ×2 (09:24→17:29)
[2022-04-04] MEDS: atorvastatin 40 mg Tablet 20 MG PO (09:24)
[2022-04-04] MEDS: cyanocobalamin 1,000 mcg/mL SDV 1000 MCG IM (09:24)
[2022-04-04] MEDS: rivaroxaban 10 mg Tablet PO (09:25)
[2022-04-04] MEDS: spironolactone 25 mg Tablet 50 MG PO (09:25)
[2022-04-04] MEDS: folic acid 1 mg Tablet PO ×2 (09:27→17:29)
[2022-04-04] MEDS: metoprolol tartrate 25 mg Tablet PO ×2 (09:28→17:30)
[2022-04-04] MEDS: TRAMadol 50 mg Tablet PO (10:12)
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
[2022-04-04] MEDS: diphenhydrAMINE 25 mg Capsule PO (20:58)
[2022-04-04] MEDS: docusate sodium 100 mg Capsule PO (21:07)
[2022-04-05] VITALS (12 sets, daily range): BP systolic 91–130; BP diastolic 56–69; PULSE 52–88; RESP 16–18; TEMP 36.5–36.9; O2SAT 90–98
--- NOTE | 2022-04-05 03:33 | ECG_ITS ---
[facility] Test Date: 2022-04-05 Pat Name: Sana Coto Department: Room: 276 Gender: Female Associate Dean: : 1940 Requested By: Edgard Hoskins Order Number: [id number] Navjot MD: Guero Stephens M.D. Measurements Intervals [place] Rate: 62 P: 60 ME: 195 QRS: 66 QRSD: 91 T: 73 QT: 382 QTc: 388 Interpretive Statements SINUS RHYTHM WITH OCCASIONAL VENTRICULAR PREMATURE COMPLEXES Compared to ECG 06/06/2021 23:49:08 Ventricular premature complex(es) now present Electronically Signed On 04-05-2022 10:06:35 SCIENTIFIC PUBLICATIONS EDITOR by Guero Stephens M.D. [id number]
[2022-04-05] MEDS: piperacillin-tazobactam 3.375 GM in sodium chloride 0.9% (plus) 50 ML IV ×3 (03:48→20:26)
[2022-04-05 05:34] LABS: Alanine Aminotransferase 8 U/L (0-33); Albumin Level 3.4 g/dL (3.5-5.2); Alkaline Phosphatase 61 U/L (35-105); Aspartate Amino Transferase 15 U/L (0-32); Blood Urea Nitrogen 18 mg/dL (8-23); Calcium 8.9 mg/dL (8.5-10.5); Carbon Dioxide 26 mmol/L (22-29); Chloride 98 mmol/L (98-107); Globulin 2.9 g/dL (1.3-4.6); Glucose 88 mg/dL (65-115); Osmolality Calculated 277 mOsm/kg (285-295); Sodium 133 mmol/L (136-145); Total Bilirubin 0.6 mg/dL (0.15-1.2); Total Protein 6.3 g/dL (6.6-8.7)
[2022-04-05] MEDS: atorvastatin 40 mg Tablet 20 MG PO (08:44)
[2022-04-05] MEDS: spironolactone 25 mg Tablet 50 MG PO (08:44)
[2022-04-05] MEDS: cyanocobalamin 1,000 mcg Tablet 500 MCG PO (08:44)
[2022-04-05] MEDS: famotidine 20 mg/2 mL INJ IVP ×2 (08:45→20:29)
[2022-04-05] MEDS: metoprolol tartrate 25 mg Tablet PO ×2 (08:45→18:25)
[2022-04-05] MEDS: folic acid 1 mg Tablet PO ×2 (08:45→18:25)
[2022-04-05] MEDS: rivaroxaban 10 mg Tablet PO (08:45)
[2022-04-05] MEDS: ferrous gluconate 324 mg Tablet PO ×2 (08:45→18:25)
[2022-04-05] MEDS: acetaminophen-codeine 300-30mg Tablet 1 TAB PO ×2 (08:58→18:25)
[2022-04-05] MEDS: ketorolac 30 mg/mL INJ IVP (10:23)
--- NOTE | 2022-04-05 10:28 | PC.SOCIAL ---
IMM Update pg 2 of IMM updated and reviewed w/ patient. Copy provided and Copy dated, initialed and placed in chart.
--- NOTE | 2022-04-05 10:31 | P.PN_ITS ---
Subjective Subjective: Ms. Coto received physical therapy this morning. She is able to stand with assistance and with the use of a walker. She has not ambulated any substantial distances. Vitals/I&O/Wt Last Vital Signs Temp 97.9 F 04/05/22 07:40 Pulse 88 04/05/22 08:00 Resp 18 04/05/22 08:00 BP 110/67 04/05/22 07:40 Pulse Ox 90 04/05/22 08:00 O2 Del Method 04/05/22 08:00 O2 Flow Rate 2 04/03/22 20:00 04/04/22 04/05/22 04/05/22 22:59 06:59 14:59 Intake Total 890 / 1900 50 / 1950 170 / 170 Output Total 650 / 650 500 / 1150 Balance 240 / 1250 -450 / 800 170 / 170 Weight last 48 hrs Weight 235 lb 3.2 oz Physical Exam Extremity: NARRATIVE EXTREMITY EXAM: Left lower extremity dressings were removed and incision inspected. Incision line cleaned with saline. Old Nini was removed and nonadhesive dressing was applied. Overall, incision appears to be about the same. Still islands of the dusky skin in between the areas of skin disruption. I suspect some of the incision edges will continue to necrosis. Urinary Catheter Management: Claudio: Cath Placed During This Visit: yes Reason for Continuing Indwelling Catheter: Required Immobilization for Trauma or Surgery or Anesthesia Urinary Catheter Date of Insertion: 04/02/22 Urinary Catheter Time of Insertion: 05:00 Data 04/02/22 02:23 04/05/22 03:46 A&P Assessment and plan (1) Laceration: Will continue daily dressing changes. She is tentatively scheduled for discharge to SNF tomorrow. Wound care services will follow her on site at that location. Rehabilitation will most probably take some time related to the complexity of the laceration and the patient's age and comorbidities. Attestations Medical Necessity Statement*: Traumatic laceration Coding Level of Care Code Acute Code for [facility] Fwd Diagnoses Laceration
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
[2022-04-05] MEDS: diphenhydrAMINE 25 mg Capsule PO (20:41)
[2022-04-05 21:18] LABS: Add Urine Microscopic? YES; Bilirubin Urine 1+ (Negative); Blood Urine 3+ (Negative); Glucose Urine UA Norm (Normal); Ketones Urine 1+ (Negative); Leukocyte Esterase Urine 2+ (Negative); Nitrate Urine Negative (Negative); Protein Urine 1+ (Negative); Urine Appearance Hazy (CLEAR); Urine Color Yellow (Yellow); Urobilinogen Urine Norm (Negative); pH Urine 5 (5-7)
[2022-04-05 21:19] LABS: Add Urine Culture? No; Bacteria Urine 2+ /hpf; RBC Urine TOO NUMEROUS TO CNT /hpf (0-2)
--- NOTE | 2022-04-05 22:07 | USR_ITS ---
PROCEDURE INFORMATION: Exam: US Retroperitoneal; Complete; Kidneys and Bladder Exam date and time: 04/05/2022 10:27 PM Age: 82 years old Clinical indication: Other: Hematuria TECHNIQUE: Imaging protocol: Real-time ultrasound of the retroperitoneum with image documentation. Complete exam focused on the kidneys and bladder. COMPARISON: No relevant prior studies available. FINDINGS: The right kidney measures 10.0 cm in length. The left kidney measures 11.0 cm in length. There is no hydronephrosis or perinephric fluid. Neither ureter is visible or dilated. The renal parenchymal thickness and echogenicity appear within normal limits for age. Bilateral renal cysts. Largest on the left measures 18-19 mm. Right-sided cyst measures up to 20 mm. There is no sonographically visible renal calculus, or solid mass mass. Claudio catheter in the urinary bladder. The bladder is essentially empty, limiting evaluation at this time. US/US renal BI* [id number] IMPRESSION: 1. No hydronephrosis of either kidney. 2. Bilateral renal cysts. 3. No sonographically visible solid renal mass. 4. Other findings discussed above.
[2022-04-05] MEDS: phenazopyridine 100 mg Tablet 200 MG PO (22:15)
[2022-04-06 04:00] VITALS: BP 113/70; PULSE 78; RESP 16; TEMP 37.1; O2SAT 95
[2022-04-06] MEDS: piperacillin-tazobactam 3.375 GM in sodium chloride 0.9% (plus) 50 ML IV (05:30)
[2022-04-06] MEDS: acetaminophen-codeine 300-30mg Tablet 1 TAB PO (05:36)
[2022-04-06 06:00] VITALS: PULSE 59
--- NOTE | 2022-04-06 07:25 | PM.MISC ---
Miscellaneous Note Purpose of Documentation: At discharge to SNF, recommend hyrogel or silvasorb gel and collage to opened portions of left lower extremity wound/laceration. May use thin layer of triple abx. ointment to closed portions of the laceration. Will be seen onsite by wound care services on .
[2022-04-06 07:31] VITALS: BP 119/75; PULSE 61; RESP 17; TEMP 36.8; O2SAT 92
[2022-04-06] MEDS: rivaroxaban 10 mg Tablet PO (08:26)
[2022-04-06] MEDS: folic acid 1 mg Tablet PO (08:26)
[2022-04-06] MEDS: ferrous gluconate 324 mg Tablet PO (08:26)
[2022-04-06] MEDS: metoprolol tartrate 25 mg Tablet PO (08:26)
[2022-04-06] MEDS: atorvastatin 40 mg Tablet 20 MG PO (08:27)
[2022-04-06] MEDS: spironolactone 25 mg Tablet 50 MG PO (08:27)
[2022-04-06] MEDS: famotidine 20 mg/2 mL INJ IVP (08:28)
[2022-04-06 09:50] VITALS: PULSE 90; RESP 16; O2SAT 92
[2022-04-06 11:05] LABS: SARS Covid-2 Antigen negative (Negative)
[2022-04-06] MEDS: phenazopyridine 100 mg Tablet 200 MG PO (11:45)
[2022-04-06] MEDS: cyanocobalamin 1,000 mcg Tablet 500 MCG PO (11:45)
[2022-04-06 12:00] VITALS: BP 108/75; PULSE 65; RESP 18; TEMP 36.7; O2SAT 90
--- NOTE | 2022-04-06 20:38 | P.DS_ITS ---
Discharge Providers Date of Admission: 04/02/22 09:55 Date of Discharge: April 06, 2022 Attending Provider at Admission: Andres Yoon MD Attending Provider at Discharge: Victoriano Wilkins Primary Care Provider: Aravind Samano DO Diagnoses at Discharge Discharge Diagnosis (1) Laceration: Status: Acute (2) COPD (chronic obstructive pulmonary disease): Status: Acute Qualifiers: COPD type: chronic bronchitis Chronic bronchitis type: simple Qualified Code(s): J41.0 - Simple chronic bronchitis (3) Pulmonary embolism: Status: Acute Qualifiers: Pulmonary embolism type: other Chronicity: chronic Acute cor pulmonale presence: unspecified Qualified Code(s): I27.82 - Chronic pulmonary embolism (4) DVT (deep venous thrombosis): Status: Acute Reason for Visit Reason for Visit: Lacerations Hospital Course Hospital Course Pleasant 82-year-old with history of PE on oxygen as needed with 2 L nasal cannula, was admitted for assessment and management after fall and laceration of left lower extremity against car door, wound was approximated in ER, further assessed by epic willow specialist surgeon, with continue dressing changes and she is asked to continue follow-up with wound care at discharge. She was treated empirically with Zosyn during hospitalization. With noted microscopic and mild gross hematuria with suspected urinary tract infection is discharging with empiric course of ciprofloxacin. Please follow-up for resolution of hematuria. She is on anticoagulation between history of PE. Monitor for any symptoms of urinary retention. With need for further skilled care, as well as rehabilitation she is discharging to fdc facility. Physical Exam Const: COMMON NORMALS: patient oriented x3 and alert GENERAL APPEARANCE: cooperative ORIENTATION/CONSCIOUSNESS: Yes awake HENMT: COMMON NORMALS: oropharynx normal Neck/C-Spine: COMMON NORMALS: no JVD Resp: COMMON NORMALS: normal respiratory effort and clear to auscultation bilaterally AUSCULTATION: clear to auscultation bilaterally Cardio: COMMON NORMALS: no JVD, regular rhythm, S1 normal heart sound present, S2 normal heart sound present and No murmurs present (Cardio) RHYTHM: regular rhythm HEART SOUNDS: S1 normal heart sound present and S2 normal heart sound present GI: COMMON NORMALS: Normal to inspection, nondistended, normoactive bowel sounds present, Soft to palpation and non-tender PALPATION: Yes Soft to palpation Extremity: COMMON NORMALS: no joint enlargement and no pedal edema Neuro: COMMON NORMALS: patient oriented x3 and moves all extremities SENSORIUM/ORIENTATION: Yes alert Skin: COMMON NORMALS: no rashes or lesions noted GENERAL SKIN EXAM: no rashes or lesions noted OTHER: Bruising around large laceration including vertical left lateral mid fields laceration and lower down horizontal laceration, minimal bleeding at wound appr oximations, healing well without signs of infection. Urinary Catheter Management: Claudio: Cath Placed During This Visit: yes Reason for Continuing Indwelling Catheter: Other Urinary Catheter Date of Insertion: 04/02/22 Urinary Catheter Time of Insertion: 05:00 Discharge Data Studies Completed and Pending Completed Studies During Hospitalization Category Date Time Status XR tibia fibula LT 2V [id number] Stat Exams 04/01/22 13:36 Completed US renal BI* [id number] Routine Ultrasound 04/05/22 22:07 Completed Radiology Impressions Tibia/Fibula X-Ray 04/01/22 13:36 IMPRESSION: Soft tissue injury. No radiopaque foreign bodies detected. Renal Ultrasound 04/05/22 22:07 IMPRESSION: 1. No hydronephrosis of either kidney. 2. Bilateral renal cysts. 3. No sonographically visible solid renal mass. 4. Other findings discussed above. Laboratory Results WBC 8.7 10^3/uL (4.0-10.0) 04/02/22 02: RBC 4.08 10^6/uL (4.1-5.3) L 04/02/22 02: Hgb 12.9 g/dL (11.5-15.3) 04/02/22 02:23 Hct 40.8 % (37.0-47.0) 04/02/22 02: MCV 100.0 fl (81-99) H 04/02/22 02: MCH 31.6 pg (28.0-34.0) 04/02/22 02: MCHC 31.6 g/dL (30.0-36.0) 04/02/22 02: RDW 12.6 % (12.1-15.1) 04/02/22 02: Plt Count 146 10^3/cmm (130-400) 04/02/22 02: MPV 10.3 fL (7.4-10.4) 04/02/22 02: Neut % (Auto) 62.7 % 04/02/22 02:23 Lymph % (Auto) 21.2 % 04/02/22 02:23 Davie % (Auto) 14.5 % 04/02/22 02:23 Eos % (Auto) 0.7 % 04/02/22 02:23 Baso % (Auto) 0.6 % 04/02/22 02:23 Neut # (Auto) 5.47 10^3/uL (1.8-7.7) 04/02/22 02:23 Lymph # (Auto) 1.9 10^3/uL (0.8-4.8) 04/02/22 02: Davie # (Auto) 1.3 10^3/uL (0.2-0.9) H 04/02/22 02:23 Eos # (Auto) 0.1 10^3/uL (0.0-0.8) 04/02/22 02: Baso # (Auto) 0.1 10^3/uL (0.0-0.1) 04/02/22 02:23 Nucleated RBC % (auto) 0 % 04/02/22 02: Nucleated RBCs # 0.0 /100WBC 04/02/22 02:23 Sodium 133 mmol/L (136-145) L 04/05/22 03:46 Potassium 4.0 mmol/L (3.5-5.1) 04/05/22 03:46 Chloride 98 mmol/L (98-107) 04/05/22 03:46 Carbon Dioxide 26 mmol/L (22-29) 04/05/22 03:46 Anion Gap 13.0 (5-19) 04/05/22 03:46 BUN 18 mg/dL (8-23) 04/05/22 03:46 Creatinine 1.3 mg/dL (0.5-0.9) H 04/05/22 03:46 GFR Calculation Not Reportable 04/05/22 03:46 Glucose 88 mg/dL (65-115) 04/05/22 03:46 Estimat Average Glucose 114 04/02/22 02:23 Hemoglobin A1c 5.6 % (4.0-6.0) 04/02/22 02:23 Calculated Osmolality 277 mOsm/kg (285-295) L 04/05/22 03:46 Calcium 8.9 mg/dL (8.5-10.5) 04/05/22 03:46 Magnesium 1.9 mg/dL (1.7-2.3) 04/02/22 02:23 Iron 63 ug/dL (37-145) 04/01/22 18:40 TIBC 297 mcg/dl 04/01/22 18:40 % Saturation 21.2 % (20-50) 04/01/22 18:40 Unsat Iron Binding 234 ug/dL (112-347) 04/01/22 18:40 Total Bilirubin 0.6 mg/dL (0.15-1.2) 04/05/22 03:46 AST 15 U/L (0-32) 04/05/22 03:46 ALT 8 U/L (0-33) 04/05/22 03:46 Alkaline Phosphatase 61 U/L (35-105) 04/05/22 03:46 Total Protein 6.3 g/dL (6.6-8.7) L 04/05/22 03:46 Albumin 3.4 g/dL (3.5-5.2) L 04/05/22 03:46 Globulin 2.9 g/dL (1.3-4.6) 04/05/22 03:46 Triglycerides 97 mg/dL (0-150) 04/02/22 02:23 Cholesterol 108 mg/dL (0-200) 04/02/22 02:23 LDL Cholesterol, Calc 49 mg/dL (50-129) L 04/02/22 02:23 Total VLDL Cholesterol 19 mg/dL (0-30) 04/02/22 02:23 HDL Cholesterol 40 mg/dL (60-100) L 04/02/22 02:23 Cholesterol/HDL Ratio 2.70 mg/dL (0.0-4.40) 04/02/22 02:23 Vitamin B12 186 pg/mL (232-1245) L 04/01/22 18:40 Folate 4.4 ng/mL (4.8-37.3) L 04/01/22 18:40 Procalcitonin 0.07 ng/mL (0-0.5) 04/01/22 18:40 TSH 1.46 uIU/mL (0.27-4.20) 04/01/22 18:40 Urine Color Yellow (Yellow) 04/05/22 20:40 Urine Appearance Hazy (CLEAR) A 04/05/22 20:40 Urine pH 5 (5-7) 04/05/22 20:40 Ur Specific [place]bury 1.030 (1.005-1.030) 04/05/22 20:40 Urine Protein 1+ (Negative) H 04/05/22 20:40 Urine Glucose (UA) Norm (Normal) 04/05/22 20:40 Urine Ketones 1+ (Negative) H 04/05/22 20:40 Urine Blood 3+ (Negative) H 04/05/22 20:40 Urine Nitrate Negative (Negative) 04/05/22 20:40 Urine Bilirubin 1+ (Negative) H 04/05/22 20:40 Urine Urobilinogen Norm mg/dL (Negative) 04/05/22 20:40 Ur Leukocyte Esterase 2+ (Negative) H 04/05/22 20:40 Urine RBC Too numerous to cnt /hpf (0-2) H 04/05/22 20:40 Urine WBC 5-10 /hpf (0-5) H 04/05/22 20:40 Ur Squamous Epith Cells 10-15 /hpf (0-5) H 04/05/22 20:40 Amorphous Sediment Not Reportable 04/05/22 20:40 Urine Bacteria 2+ /hpf (NONE) H 04/05/22 20:40 SARS-CoV-2 Ag (Rapid) negative (Negative) 04/06/22 09:15 Vitals Last Vital Signs Temp 98.1 F 04/06/22 12:00 Pulse 65 04/06/22 12:00 Resp 18 04/06/22 12:00 BP 108/75 04/06/22 12:00 Pulse Ox 90 04/06/22 12:00 O2 Del Method 04/06/22 09:50 O2 Flow Rate 2 04/03/22 20:00 Discharge Plan Discharge Patient Disposition: Xfer SNF Condition: Stable Prescriptions: New ciprofloxacin HCl 500 mg tablet 500 mg PO BID Qty: 10 0RF Continued simvastatin 40 mg tablet 40 mg PO DAILY diphenhydramine HCl [Benadryl] 25 mg capsule 25 mg PO QDAY Symbicort 160-4.5 mcg/actuation HFA aerosol inhaler 2 puff INHALATION BID Qty: 10.2 11RF Rx Instructions: 340 B pricing: Requesting 3 months supply (30.6 g) w 3 refills. Thanks albuterol sulfate [Ventolin HFA] 90 mcg/actuation HFA aerosol inhaler 2 puff INHALATION Q6H PRN (Reason: bronchospasm) Qty: 25.5 3RF ipratropium-albuterol 0.5 mg-3 mg(2.5 mg base)/3 mL solution for nebulization 3 ml inhalation Q6H PRN (Reason: shortness of breath or wheezing) 30 Days Qty: 360 4RF Spiriva with HandiHaler 18 mcg capsule, w/inhalation device 1 cap inhalation DAILY 30 Days Qty: 60 7RF Rx Instructions: puncture 1 cap using device; one dose = 2 inhalations Xarelto 10 mg tablet 10 mg PO DAILY Qty: 30 5RF acetaminophen-codeine 300-30 mg tablet 1 tab PO BID PRN (Reason: pain) Qty: 60 5RF spironolactone 50 mg tablet 50 mg PO DAILY Qty: 30 0RF metoprolol tartrate 25 mg tablet 25 mg PO BID Discharge Orders: Discharge Order (Routine); Ordered 04/06/22 Ordered By: Victoriano Wilkins Referrals: [facility] [Provider Group] - 1 week (Hematuria) Wound Care [Provider Group] [facility] [Outside] Aravind Samano DO [Primary Care Provider] - 4-7 days Discharge Diet: Cardiac Discharge Activity: As per PT/OT instructions Patient Instructions: Opioid Safety Activity Restrictions/Additional Instructions: Silvasorb gel or hydroget and collagen to opened portions of laceration. Thin layer of triple abx. ointment to portiions of laceration that are closed. May continue to cover LLE with kerlex after dressing changes daily. May clean laceration with normal saline daily prior to application of new dressings. Will be seen by Wound Care Services onsite at [facility] on , . Monitor for any urinary retention. Reassess for resolution of hematuria. Recheck CBC for blood counts on . Continue 2L NC O2 as needed. Discharge Attestations Time Spent in Discharge Care*: greater than 30 min Quality Metrics Clinical Quality Measures [ No reported AMI, CVA or VTE this stay] Coding Level of Care Code Acute Chg FW DC note Diagnoses Laceration COPD (chronic obstructive pulmonary disease) J41.0 COPD type: chronic bronchitis Chronic bronchitis type: simple Pulmonary embolism I27.82 Pulmonary embolism type: other Chronicity: chronic Acute cor pulmonale presence: unspecified DVT (deep venous thrombosis) I82.409
== END 2022-04-06 15:15 | disposition skilled nursing facility (03) | DRG 605 ==
LOC: ER 18:43 → MEDSURG 18:57
PROVIDERS: Family Medicine; Admitting Provider Student in an Organized Health Care Education/Training Program; Emergency Provider Family Medicine; PCP Family Medicine; Visit Provider Internal Medicine
DX: S81.812A Laceration without foreign body, left lower leg, initial encounter (principal); N39.0 Urinary tract infection, site not specified; R31.0 Gross hematuria; W01.198A Fall on same level from slipping, tripping and stumbling with subsequent striking against other object, initial encounter; L08.9 Local infection of the skin and subcutaneous tissue, unspecified; J41.0 Simple chronic bronchitis; G47.30 Sleep apnea, unspecified; I10 Essential (primary) hypertension; J39.8 Other specified diseases of upper respiratory tract; Z60.2 Problems related to living alone; Z86.711 Personal history of pulmonary embolism; Z86.718 Personal history of other venous thrombosis and embolism; Z79.01 Long term (current) use of anticoagulants
CPT/HCPCS: 12007; 36415; 51702; 73590; 76770; 80048; 80053; 80061; 81001; 81003; 82607; 82746; 83036; 83540; 83550; 83735; 84145; 84443; 85025; 86403; 87426; 87641; 93005; 94640; 96372; 96374; 96375; 97110; 97116; 97161; 97530; 99285; G0378; J0690; J1885; J2060; J2543; J2795; J3010; J3420; J3490

== ENCOUNTER → 2022-04-09 15:49 | Outpatient (BNVA) | payer MEDICARE, OTHER, SELFPAY | PROVIDERS: PCP Family Medicine; Visit Provider Thoracic Surgery (Cardiothoracic Vascular Surgery) | DX: S81.812D Laceration without foreign body, left lower leg, subsequent encounter (principal); W01.198D Fall on same level from slipping, tripping and stumbling with subsequent striking against other object, subsequent encounter | CPT/HCPCS: A6248 ==

== ENCOUNTER → 2022-04-16 15:28 | Outpatient (BNVA) | payer MEDICARE, OTHER, SELFPAY | PROVIDERS: PCP Family Medicine; Visit Provider Thoracic Surgery (Cardiothoracic Vascular Surgery) | DX: S81.812D Laceration without foreign body, left lower leg, subsequent encounter (principal); L08.9 Local infection of the skin and subcutaneous tissue, unspecified; X58.XXXD Exposure to other specified factors, subsequent encounter; I96 Gangrene, not elsewhere classified ==

== ENCOUNTER → 2022-04-23 14:48 | Outpatient (BNVA) | payer MEDICARE, OTHER, SELFPAY | PROVIDERS: PCP Family Medicine; Visit Provider Thoracic Surgery (Cardiothoracic Vascular Surgery) | DX: S81.812D Laceration without foreign body, left lower leg, subsequent encounter (principal); X58.XXXD Exposure to other specified factors, subsequent encounter; I96 Gangrene, not elsewhere classified ==

== ENCOUNTER → 2022-04-29 09:39 | Outpatient (BNVA) | payer MEDICARE, OTHER, SELFPAY | PROVIDERS: PCP Family Medicine; Visit Provider Thoracic Surgery (Cardiothoracic Vascular Surgery) | DX: I96 Gangrene, not elsewhere classified (principal); L97.822 Non-pressure chronic ulcer of other part of left lower leg with fat layer exposed | CPT/HCPCS: 11042; 11045; 99213 ==

== ENCOUNTER → 2022-05-06 10:08 | Outpatient (BNVA) | payer MEDICARE, OTHER, SELFPAY | PROVIDERS: PCP Family Medicine; Visit Provider Thoracic Surgery (Cardiothoracic Vascular Surgery) | DX: I96 Gangrene, not elsewhere classified (principal); L97.822 Non-pressure chronic ulcer of other part of left lower leg with fat layer exposed | CPT/HCPCS: 11042; 11045; A6210 ==

== ENCOUNTER → 2022-05-13 10:50 | Outpatient (BNVA) | payer MEDICARE, OTHER, SELFPAY | PROVIDERS: PCP Family Medicine; Visit Provider Thoracic Surgery (Cardiothoracic Vascular Surgery) | DX: I96 Gangrene, not elsewhere classified (principal); L97.822 Non-pressure chronic ulcer of other part of left lower leg with fat layer exposed | CPT/HCPCS: 11042; 11045 ==

== ENCOUNTER → 2022-05-20 13:40 | Outpatient (BNVA) | payer MEDICARE, OTHER, SELFPAY | PROVIDERS: PCP Family Medicine; Visit Provider Thoracic Surgery (Cardiothoracic Vascular Surgery) | DX: I96 Gangrene, not elsewhere classified (principal); L97.822 Non-pressure chronic ulcer of other part of left lower leg with fat layer exposed | CPT/HCPCS: 97597; 97598 ==

== ENCOUNTER → 2022-05-27 12:58 | Outpatient (BNVA) | payer MEDICARE, OTHER, SELFPAY | PROVIDERS: PCP Family Medicine; Visit Provider Thoracic Surgery (Cardiothoracic Vascular Surgery) | DX: I96 Gangrene, not elsewhere classified (principal); L97.822 Non-pressure chronic ulcer of other part of left lower leg with fat layer exposed | CPT/HCPCS: 11042; 11045 ==

== ENCOUNTER → 2022-06-03 13:15 | Outpatient (BNVA) | payer MEDICARE, OTHER, SELFPAY | PROVIDERS: PCP Family Medicine; Visit Provider Thoracic Surgery (Cardiothoracic Vascular Surgery) | DX: I96 Gangrene, not elsewhere classified (principal); L97.822 Non-pressure chronic ulcer of other part of left lower leg with fat layer exposed | CPT/HCPCS: 97597; 97598 ==

== ENCOUNTER 2022-06-10 14:17 | Outpatient (CLI) | payer MEDICARE, OTHER, SELFPAY ==
--- NOTE | 2022-06-10 14:27 | USCV_ITS ---
Sana Coto Age: 82 Gender: F : 1940 Exam Date: 06/10/2022 15:05 Ordering Phys: Dustin Lord MD (Andy) ([email or web address] [place]) Technologist: UMER Exam Location: [facility] Indication: LLE PAIN AND SWELLING HISTORY: Lower extremity swelling. Lower extremity pain. PROCEDURES: Venous duplex imaging was performed in only the left lower extremity. The following venous structures were evaluated: common femoral vein, profunda vein, proximal portion of the greater saphenous vein, superficial femoral vein, and the popliteal vein. In addition, the posterior tibial and peroneal trunk were evaluated. Serial compression, augmentation maneuvers, and spectral Doppler flow evaluation were performed. FINDINGS: No evidence of DVT seen in any vessel visualized at this time. Examination was technically limited due to body habitus. Left Lower Leg edema seen CONCLUSIONS No evidence of left lower extremity DVT. Douglas Rai MD (Electronically Signed) Final Date: 10 June 2022 17:48 S
== END 2022-06-10 14:18 | disposition home or self-care (01) ==
PROVIDERS: PCP Family Medicine; Visit Provider Thoracic Surgery (Cardiothoracic Vascular Surgery)
DX: M79.89 Other specified soft tissue disorders (principal); M79.605 Pain in left leg; I96 Gangrene, not elsewhere classified; L97.822 Non-pressure chronic ulcer of other part of left lower leg with fat layer exposed
CPT/HCPCS: 93971; 97597; 97598

== ENCOUNTER → 2022-06-17 13:11 | Outpatient (BNVA) | payer MEDICARE, OTHER, SELFPAY | PROVIDERS: PCP Family Medicine; Visit Provider Thoracic Surgery (Cardiothoracic Vascular Surgery) | DX: L97.822 Non-pressure chronic ulcer of other part of left lower leg with fat layer exposed (principal) | CPT/HCPCS: 97597; 97598 ==

== ENCOUNTER → 2022-06-24 15:17 | Outpatient (BNVA) | payer MEDICARE, OTHER, SELFPAY | PROVIDERS: PCP Family Medicine; Visit Provider Thoracic Surgery (Cardiothoracic Vascular Surgery) | DX: L97.822 Non-pressure chronic ulcer of other part of left lower leg with fat layer exposed (principal) | CPT/HCPCS: 97597 ==

== ENCOUNTER → 2022-07-01 10:12 | Outpatient (BNVA) | payer MEDICARE, OTHER, SELFPAY | PROVIDERS: PCP Family Medicine; Visit Provider Thoracic Surgery (Cardiothoracic Vascular Surgery) | DX: L97.822 Non-pressure chronic ulcer of other part of left lower leg with fat layer exposed (principal) | CPT/HCPCS: 97597 ==

== ENCOUNTER → 2022-07-08 14:04 | Outpatient (BNVA) | payer MEDICARE, OTHER, SELFPAY | PROVIDERS: PCP Family Medicine; Visit Provider Thoracic Surgery (Cardiothoracic Vascular Surgery) | DX: L97.822 Non-pressure chronic ulcer of other part of left lower leg with fat layer exposed (principal) | CPT/HCPCS: 99212 ==

== ENCOUNTER 2022-07-24 13:12 | Outpatient (CLI) | payer MEDICARE, OTHER, SELFPAY ==
--- NOTE | 2022-07-24 13:22 | MM_ITS ---
WS: [id number] BILATERAL 3D TOMOSYNTHESIS DIGITAL SCREENING MAMMOGRAPHY WITH CAD CLINICAL INFORMATION: SCREENING HISTORY: Screening mammogram. No current complaints. COMPARISON: 2021 TECHNIQUE: Bilateral CC and MLO views. FINDINGS: Bilateral silicone breast implants appear intact. Capsular calcifications. Scattered fibroglandular densities bilaterally. No suspicious focal mass, asymmetry, calcifications, or architectural distortion. No evidence of malignancy. Vascular calcification. MM/[place] [id number] IMPRESSION: BI-RADS: 2-Benign FOLLOW UP: 1 Year Follow-up Recommend return to annual screening mammography.
== END 2022-07-24 13:13 | disposition home or self-care (01) ==
LOC: RAD 13:16
PROVIDERS: PCP Family Medicine; Visit Provider Family Medicine
DX: Z12.31 Encounter for screening mammogram for malignant neoplasm of breast (principal)
CPT/HCPCS: 77063; 77067

== ENCOUNTER → 2023-02-04 11:03 | Outpatient (BNVA) | payer MEDICARE, OTHER, SELFPAY | PROVIDERS: PCP Family Medicine; Visit Provider Internal Medicine Pulmonary Disease | DX: J43.9 Emphysema, unspecified (principal); I27.82 Chronic pulmonary embolism; R53.81 Other malaise | CPT/HCPCS: 99214 ==

== ENCOUNTER 2023-09-02 11:37 | Outpatient (CLI) | payer MEDICARE, OTHER, SELFPAY ==
--- NOTE | 2023-09-02 11:52 | MM_ITS ---
WS: [id number] BILATERAL SCREENING DIGITAL TOMOSYNTHESIS MAMMOGRAM WITH CAD HISTORY: SCREENING COMPARISON: 07/24/2022, 05/02/2021 and 03/17/2019 Bilateral CC and MLO views with tomosynthesis and synthetic mammography submitted. Computer aided det ection analyzed. Breast composition: There are scattered areas of fibroglandular density. No suspicious masses, microc alcifications or architectural distortion. Benign arterial calcifications. Stable mass in the upper o uter quadrant RIGHT breast. MM/[id number] IMPRESSION: BI-RADS: 2-Benign FOLLOW UP: 1 Year Follow-up
== END 2023-09-02 11:38 | disposition home or self-care (01) ==
PROVIDERS: PCP Family Medicine; Visit Provider Family Medicine
DX: Z12.31 Encounter for screening mammogram for malignant neoplasm of breast (principal); R92.323 Mammographic fibroglandular density, bilateral breasts; R92.1 Mammographic calcification found on diagnostic imaging of breast; N63.11 Unspecified lump in the right breast, upper outer quadrant
CPT/HCPCS: 77063; 77067

== ENCOUNTER → 2023-10-27 10:32 | Outpatient (BNVA) | payer MEDICARE, OTHER, SELFPAY | PROVIDERS: PCP Family Medicine; Visit Provider Family Medicine | DX: I10 Essential (primary) hypertension (principal); E78.2 Mixed hyperlipidemia; J43.9 Emphysema, unspecified | CPT/HCPCS: 80053; 80061; 84443; 85025 ==

== ENCOUNTER → 2024-01-06 09:36 | Outpatient (BNVA) | payer MEDICARE, OTHER, SELFPAY | PROVIDERS: PCP Family Medicine; Visit Provider Family Medicine | DX: I10 Essential (primary) hypertension (principal); M81.0 Age-related osteoporosis without current pathological fracture; I87.2 Venous insufficiency (chronic) (peripheral); E78.2 Mixed hyperlipidemia; R79.89 Other specified abnormal findings of blood chemistry | CPT/HCPCS: 80048; 82306; 82310; 83880; 83970 ==

== ENCOUNTER → 2024-01-25 11:41 | Outpatient (BNVA) | payer MEDICARE, OTHER, SELFPAY | PROVIDERS: PCP Family Medicine; Visit Provider Family Medicine | DX: I10 Essential (primary) hypertension (principal); I87.2 Venous insufficiency (chronic) (peripheral); E78.2 Mixed hyperlipidemia; M81.0 Age-related osteoporosis without current pathological fracture; R79.89 Other specified abnormal findings of blood chemistry | CPT/HCPCS: 80048; 82310; 83970 ==

== ENCOUNTER → 2024-06-28 10:47 | Outpatient (BNVA) | payer MEDICARE, OTHER, SELFPAY | PROVIDERS: PCP Family Medicine; Visit Provider Family Medicine | DX: R79.89 Other specified abnormal findings of blood chemistry (principal); E55.9 Vitamin D deficiency, unspecified; M81.0 Age-related osteoporosis without current pathological fracture; E21.5 Disorder of parathyroid gland, unspecified | CPT/HCPCS: 80048; 82306; 82310; 83970 ==

== ENCOUNTER → 2024-08-07 11:38 | Outpatient (BNVA) | payer MEDICARE, OTHER, SELFPAY | PROVIDERS: PCP Family Medicine; Referring Provider Family Medicine; Visit Provider Internal Medicine | DX: Z86.711 Personal history of pulmonary embolism (principal); E21.3 Hyperparathyroidism, unspecified; E55.9 Vitamin D deficiency, unspecified; M81.0 Age-related osteoporosis without current pathological fracture; M16.11 Unilateral primary osteoarthritis, right hip; J43.9 Emphysema, unspecified; R53.1 Weakness; N18.2 Chronic kidney disease, stage 2 (mild); I87.2 Venous insufficiency (chronic) (peripheral); I10 Essential (primary) hypertension; Z86.718 Personal history of other venous thrombosis and embolism | CPT/HCPCS: 84100 ==

== ENCOUNTER 2024-09-11 12:59 | Outpatient (CLI) | payer MEDICARE, OTHER, SELFPAY ==
--- NOTE | 2024-09-11 13:07 | MM_ITS ---
WS: [id number] BILATERAL 3D TOMOSYNTHESIS DIGITAL SCREENING MAMMOGRAPHY WITH CAD CLINICAL INFORMATION: SCREENING HISTORY: Screening mammogram. No current complaints. COMPARISON: 2023 TECHNIQUE: Bilateral CC and MLO views. FINDINGS: Breast implants appear intact with capsular calcifications. Scattered fibroglandular densities bilaterally. No suspicious focal mass, asymmetry, calcifications, or architectural distortion. No evidence of malignancy. Vascular calcifications. Stable ovoid densities outer RIGHT breast MM/MM scr BI tomosynthesis [id number] IMPRESSION: DENSITY: There are scattered areas of fibroglandular density. BI-RADS: 2 - Benign. FOLLOW UP: 1 Year Follow-up Recommend return to annual screening mammography.
== END 2024-09-11 13:00 | disposition home or self-care (01) ==
PROVIDERS: PCP Family Medicine; Visit Provider Family Medicine
DX: Z12.31 Encounter for screening mammogram for malignant neoplasm of breast (principal)
CPT/HCPCS: 77063; 77067

== ENCOUNTER 2024-11-10 16:57 | Inpatient (IN) | payer MEDICARE, OTHER, SELFPAY ==
[2024-11-10] VITALS (8 sets, daily range): BP systolic 158–186; BP diastolic 80–100; PULSE 74–93; RESP 16–19; TEMP 36.6–36.8; O2SAT 90–95; BMI 33.7
--- OUTSIDE RECORDS SUMMARY | 2024-11-10 17:03 | XMS_ITS | Encounter Summary ---
Author Organization [employer] [facility] Address [address] [place] [address] Care Team Providers Care Psychiatric Aide Instructor Name Role Phone Jaime Chow MD Primary Care Provider +- [phone] Encounter Details Date Type Department Care Team (Latest Contact Info) Description 09/12/1999 Outpatient Historical HIS [facility] Aravind Gamez MD [address] [place] [id number] Lump or mass in breast (Primary Dx) Social History Tobacco Use Types Packs/Day Years Used Date Smoking Tobacco: Never Assessed Comments Unknown Sex and Gender Information Value Date Recorded Sex Assigned at Not on file Legal 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
--- OUTSIDE RECORDS SUMMARY | 2024-11-10 17:03 | XMS_ITS | Encounter Summary ---
Author Organization [employer] [facility] Address [address] [place] [address] Care Team Providers Care Director New Product Name Role Phone Jaime Chow MD Primary Care Provider [phone]- [phone] Encounter Details Date Type Department Care Team (Latest Contact Info) Description 11/03/1999 Outpatient Historical HIS [facility] Aravind Gamez MD [address] [place] [phone] Pure hypercholesterolem (Primary Dx); Encounter for long-term (current) use of other medications; Goiter, unspecified Social History Tobacco Use Types Packs/Day Years Used Date Smoking Tobacco: Never Assessed Comments Unknown Sex and Gender Information Value Date Recorded Sex Assigned at Not on file 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 Gender Identity Not on file Sexual Orientation Not on file documented as of this encounter Plan of Treatment Not on file documented as of this encounter Visit Diagnoses Diagnosis Pure hypercholesterolem- Primary Pure hypercholesterolemia Encounter for long-term (current) use of other medications Goiter, unspecified documented in this encounter Care Teams Director New Product Relationship Specialty Start Date End Date Jaime Chow MD [address] [place] [address] [place] [facility] [address] [place] [phone] PCP - General Family Practice 10/12/11 documented as of this encounter
--- OUTSIDE RECORDS SUMMARY | 2024-11-10 17:03 | XMS_ITS | Encounter Summary ---
Author Organization [employer] [facility] Address [address] [place] [address] Care Team Providers Care Park Interpreter Name Role Phone Jaime Chow MD Primary Care Provider +- [phone] Encounter Details Date Type Department Care Team (Latest Contact Info) Description 08/29/1999 Outpatient Historical HIS [facility] Aravind Gamez MD [address] [place] [phone] Nonallopathic lesion of thoracic region, not elsewhere classified (Primary Dx) Social History Tobacco Use Types Packs/Day Years Used Date Smoking Tobacco: Never Assessed Comments Unknown Sex and Gender Information Value Date Recorded Sex Assigned at Not on file 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
--- OUTSIDE RECORDS SUMMARY | 2024-11-10 17:03 | XMS_ITS | Encounter Summary ---
Author Organization [employer] [facility] Address [address] [place] [address] Care Team Providers Care Food Preparation Supervisor Name Role Phone Jaime Chow MD Primary Care Provider +1- [phone] Encounter Details Date Type Department Care Team (Latest Contact Info) Description 10/30/1999 Outpatient Historical HIS [facility] Aravind Gamez MD [address] [place] [phone] Goiter, unspecified (Primary Dx); Unspecified sinusitis (chronic); Hemoptysis; Encounter for long-term (current) use of other medications Social History Tobacco Use Types Packs/Day Years Used Date Smoking Tobacco: Never Assessed Comments Unknown Sex and Gender Information Value Date Recorded Sex Assigned at Not on file 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
--- OUTSIDE RECORDS SUMMARY | 2024-11-10 17:03 | XMS_ITS | Clinical Summary ---
Author Organization [facility] Address [address] [place] [address] Care Team Providers Care Recruiting Team Lead Name Role Phone Jaime Chow MD Primary Care Provider +1- [phone] Allergies No known active allergies Medications simvastatin (ZOCOR) 40 mg Oral tablet Take 40 mg by mouth Daily LATE. Active FLUTICASONE/CARTER METEROL (ADVAIR DISKUS INHALATION) Take by inhalation daily. Active atenolol-chlort halidone (TENORETIC) 100-25 mg Oral tablet Take 1 Tab by mouth Daily LATE. Active Fish Oil-Tyler-3 Fatty Acids (FISH OIL) 360-1,200 mg Oral Cap Take by mouth. Activ e MULTIVITAMINS WITH FLUORIDE (MULTI-VITAMIN ORAL) Take by mouth. 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 2 Other and unspecified ovarian cyst 07/02/2011 Overview (07/02/2011): 03/2011 Simple cysts and nl CA-125 Immunizations Immunization Administration Dates Next Due Influenza Seasonal Unspecified Formulation IM Family History Medical History Relation Name Comments Healthy Daughter Diabetes Maternal Grandmother Heart Disease Mother Cancer Sister 1 lung mets to br ain Cancer Sister 2 Healthy Son Relation Name Status Comments Daughter Alive Father Maternal Grandmother Mother Sister 1 Sister 2 Son Alive Social History Tobacco Use Types Packs/Day Years Used Date Smoking Tobacco: Former Cigarettes Smokeless Tobacco: Never Alcohol Use Standard Drinks/Week Comments Yes 0 (1 standard drink = 0.6 oz pur e alcohol) occasionally Comments No Sex and Gender Information Value Date Recorded Sex Assigned at Not on file 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 Gender Identity Not on file Sexual Orientation Not on file Occupation Industry Job Start Date Job End Date Not on file Not on file Not on file Not on file Last Filed Vital Signs Vital Sign Reading Time Taken Comments Blood Pressure 145/75 12/02/2011 1:28 PM CDT Pulse 50 12/02/2011 1:28 PM CDT Temperature 36.1 C (97 F) 12/02/2011 1:28 PM CDT Respiratory Rate 16 10/24/2011 10:50 AM CDT Oxygen Saturation 93% 12/02/2011 1:28 PM CDT Inhaled Oxygen Concentration - - Weight 109.3 kg (241 lb) 12/02/2011 1:28 PM CDT Height 170.2 cm (5' 7 ) 12/02/2011 1:28 PM CDT Body Mass Index 37.75 12/02/2011 1:28 PM CDT Plan of Treatment Health Maintenance Due Date Last Done Comments DTAP/TDAP/TD VACCINES (1 - Tdap) 1959 PNEUMOCOCCAL VACCINE 50+ YEARS (1 of 1 - PCV) 01/29/19 89 ZOSTER VACCINE (1 of 2) 1989 OSTEOPOROSIS SCREENING 01/30/2004 RSV VACCINE (60+ or ) (1 - 1-dose 75+ series) 2014 INFLUENZA VACCINE (#1) 2024 02/18/2000 Insurance MEDICARE PART A AND B [employer] INSURANCE [place] [id number] Advance Directives For more information, please contact: [phone] Documents on File Type Date Recorded Patient Manugrapher Expl anation Advance Directive POA 10/23/2011 3:45 PM Ad cali Directive POA * Full Code (Latest Code Status on File) Date Activated Date Inactivated Comments 10/23/2011 12:47 PM 10/24/2011 3:22 PM Care Teams Recruiting Team Lead Relationship Specialty Start Date End Date Jaime Chow MD [address] [place] [phone] PCP - General Family Practice 10/12/11
--- OUTSIDE RECORDS SUMMARY | 2024-11-10 17:03 | XMS_ITS | Encounter Summary ---
Author Organization [employer] [facility] Address [address] [place] [address] Care Team Providers Care Building Maintenance Custodian Name Role Phone Jaime Chow MD Primary Care Provider +- [phone] Encounter Details Date Type Department Care Team (Latest Contact Info) Description 09/17/1999 Outpatient Historical HIS 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
--- OUTSIDE RECORDS SUMMARY | 2024-11-10 17:03 | XMS_ITS | Encounter Summary ---
Author Organization [facility] Address [address] [place] [address] Care Team Providers Care Motor Room Controller Name Role Phone Jaime Chow MD Primary Care Provider [phone]- [phone] Reason for Referral * Outpatient Services (Routine) - Closed Specialty Diagnoses / Procedures Referred By Stephen t Referred To Contact Diagnoses Ovarian cystic mass Procedures US PELVIC TRANSVAGINAL Nicholsa Jaimes MD [address] [facility] [place] [address] Phone: tel: fax: Referral ID Status Reason Start Date Expiration Date Visits Re quested Visits Authorized [id number] Closed 04/03/2011 04/02/2012 1 1 FRAME ASSEMBLER Encounter Details Date Type Department Care Team (Late st Contact Info) Description 04/03/2011 Ancillary Orders [facility] Kira Omalleynn Morgan [address] [place] [phone] Nicholas Jaimes MD [address] [address] Ovarian cystic mass Social History Tobacco Use Types Packs/Day Years Used Date Smoking Tobacco: Former Cigarettes 1 40 Alcohol Use Standard Drinks/Week Comments Yes 0 (1 standard drink = 0.6 oz pur e alcohol) occasionally Comments No Sex and Gender Information Value Date Recorded Sex Assigned at Not on file Legal Sex Female 6:40 AM GOLD FRAME ASSEMBLER Gender Identity Not on file Sexual Orientation Not on file Occupation Industry Job Start Date Job End Date Not on file Not on file Not on file Not on file documented as of this encounter Plan of Treatment Not on file documented as of this encounter Results * US PELVIC TRANSVAGINAL (04/03/2011 2:07 PM GOLD FRAME ASSEMBLER) Anatomical Region Laterality Modality Pelvis Ultrasound Impressions 04/06/2011 10:34 AM GOLD FRAME ASSEMBLER : Uterine leiomyoma Ovary cysts. Pyometra COMMENTS: Intracavitary fluid likely represents a sequestered transudate, pyometra as a consequence of cervical stenosis. Favor adjacent cysts rather than a septate cyst of the right ovary. The findings are similar to those reported on the recent prior exam of 02/23/2011 ([facility]). No other prior exams available for comparison. Tech: Priscila Fisher RDMS Narrative 04/06/2011 10:34 AM GOLD FRAME ASSEMBLER GYNECOLOGIC ULTRASOUND REPORT Requesting Physician: Nicholas Jaimes MD Indication: Ovarian Cyst Last Menstrual Period: Unknown Pertinent History: The patient is post-menopausal. Exam Type(s): Transabdominal and Endovaginal UTERUS and PELVIS Longitudinal A/P Transverse Volume 6.0 cm 3.7 cm 3.9 cm 44.8 mL Position: anteverted Appearance: The uterus appears irregular in shape and contour. external contour is irregular Myometrium: Appears heterogeneous Endometrium: The combined (anterior + posterior) endometrial thickness is 0.2 cm Findings: Fluid within the cavity. Posterior left subserous leiomyoma measures 2.6 x 2.4 x 1.8 cm. OVARIES and ADNEXA Length Diameter 1 Diameter 2 Volume Right: 4.6 cm 3.6 cm 2.9 cm 24.5 mL Left: 2.9 cm 2.0 cm 1.8 cm 5.6 mL Findings: Right ovary cysts: 1. 2.2 x 1.6 x 2.0 cm unilocular anechoic. 2. 1.7 x 1.7 x 1.4 cm unilocular with irregular blue Left ovary unilocular cyst 1.4 x 1.2 x 1.1 cm. Procedure Note Jeff Dumont II, MD - 04/06/2011 GYNECOLOGIC ULTRASOUND REPORT Requesting Physician: Nicholas Jaimes MD Indication: Ovarian Cyst Last Menstrual Period: Unknown Pertinent History: The patient is post-menopausal. Exam Type(s): Transabdominal and Endovaginal UTERUS and PELVIS Longitudinal A/P Transverse Volume 6.0 cm 3.7 cm 3.9 cm 44.8 mL Position: anteverted Appearance: The uterus appears irregular in shape and contour. external contour is irregular Myometrium: Appears heterogeneous Endometrium: The combined (anterior + posterior) endometrial thickness is0.2 cm Findings: Fluid within the cavity. Posterior left subserous leiomyoma measures 2.6 x 2.4 x 1.8 cm. OVARIES and ADNEXA Length Diameter 1 Diameter 2 Volume Right: 4.6 cm 3.6 cm 2.9 cm 24.5 mL Left: 2.9 cm 2.0 cm 1.8 cm 5.6 mL Findings: Right ovary cysts: 1. 2.2 x 1.6 x 2.0 cm unilocular anechoic. 2. 1.7 x 1.7 x 1.4 cm unilocular with irregular blue Left ovary unilocular cyst 1.4 x 1.2 x 1.1 cm. IMPRESSION: Uterine leiomyoma Ovary cysts. Pyometra COMMENTS: Intracavitary fluid likely represents a sequestered transudate, pyometraas a consequence of cervical stenosis. Favor adjacent cysts rather than a septate cyst of the right ovary. The findings are similar to those reported on the recent prior exam of02/23/2011 ([facility]). No other prior exams available forcomparison. Tech: Priscila Fisher [facility] Nicholas Jaimes MD US ORDERABLES Final Result documented in this encounter Visit Diagnoses Diagnosis Ovarian cystic mass Other and unspecified ovarian cyst documented in this encounter Care Teams Motor Room Controller Relationship Specialty Start Date End Date Jaime Chow MD [address] [place] [phone] PCP - General Family Practice 10/12/11 documented as of this encounter
--- OUTSIDE RECORDS SUMMARY | 2024-11-10 17:03 | XMS_ITS | Encounter Summary ---
Author Organization [employer] [facility] Address [address] [place] [address] Care Team Providers Care Electronic Tester Name Role Phone Jaime Chow MD Primary Care Provider [phone]- [phone] Encounter Details Date Type Department Care Team (Latest Contact Info) Description 03/23/2000 Outpatient Historical [facility] Aravind Gamez MD [address] [place] [id number] Other diseases of trachea and bronchus, not elsewhere classified (Primary Dx); Bronchitis, not specified as acute or chronic Social History Tobacco Use Types Packs/Day Years Used Date Smoking Tobacco: Never Assessed Comments Unknown Sex and Gender Information Value Date Recorded Sex Assigned at Not on file Legal Sex Female 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
--- OUTSIDE RECORDS SUMMARY | 2024-11-10 17:03 | XMS_ITS | Clinical Summary ---
Author Organization [facility] Address [address] [facility] Attn: Epic Prelude ADT RE TOMAS [phone] Care Team Providers Care Restaurant Crew Name Role Phone Aravind Samano DO Primary Care Provider Allergies Active Allergy Reactions Criticality Noted Date Comments Clindamycin Nausea and Vomiting, Other (See Comments) Medium 11/14/2021 GERD Hydrocodone Other (See Comments) 10/06/2022 Causes confusion Latex Itching High 11/14/2021 Medications Symbicort 160-4.5 mcg/actuation HFA Aerosol Inhaler INHALE TWO PUFFS TWICE DAILY 3 Active metoprolol tartrate (LOPRESSOR) 25 mg tablet Take 25 mg by mouth 2 times daily. 3 Active Xarelto 10 mg Tablet Take 10 mg by mouth daily. 3 Active simvastatin (ZOCOR) 40 mg tablet Take 40 mg by mouth late in the day. Active Spiriva with HandiHaler 18 mcg capsule use 2 inhalations to inhale contents of 1 capsule per handihaler once daily 3 Active spironolactone (ALDACTONE) 50 mg tablet Take 50 mg by mouth daily. 3 Active albuterol sulfate HFA 90 mcg/actuation aerosol inhaler Take 2 Puffs by inhalation every 6 hours as needed. 1 Active fluticasone 250 mcg-salmeteroL 50 mcg/dose blistr powdr for inhalation Take 1 Puff by inhalation 1 time daily as needed. Active peg 400-propylene glycol (Systane, propylene glycoL,) 0.4-0.3 % solution Administer 1 Drop in both eyes every 2 hours as needed for Discomfort. Active polyethylene glycol 3350 (Miralax) 17 gram/dose Powder Take 1 Scoop (17 Grams) by mouth daily. Dissolve in 8 ounces of fluid and drink entire liquid 527 Gram 3 Active oxyCODONE (ROXICODONE) 5 mg tabletIndication s:Status post total replacement of right hip Take 1 Tablet (5 mg) by mouth every 4 hours as needed for Pain, Moderate. Max Daily Amount: 30 mg 42 Tablet 3 Active traMADoL (Ultram) 50 mg tabletIndication s:Status post total replacement of right hip Take 1 Tablet (50 mg) by mouth every 6 hours as needed for Pain. 28 Tablet 3 Active cefadroxil (DURICEF) 500 mg capsule Take 1 Capsule (500 mg) by mouth every 12 hours. 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 2 Other and unspecified ovarian cyst 07/02/2011 Overview (07/18/2020): 03/2011 Simple cysts and nl CA-125 Resolved Problems Problem Noted Date Diagnosed Date Resolved Date Primary osteoarthritis of right hip 10/26/2022 11/16/2022 Immunizations Immunization Administration Dates Next Due Influenza Seasonal Unspecified Formulation IM Family History Medical History Relation Name Comments Healthy Daughter Diabetes Maternal Grandmother Blood Clots Maternal Uncle Heart Disease Mother Heart Failure Mother Cancer Sister 1 lung mets to br ain Cancer Sister 2 Healthy Son Relation Name Status Comments Daughter Alive Father Maternal Grandmother Maternal Uncle Alive Mother (Age 85) Sister 1 Sister 2 Son Alive Social History Tobacco Use Types Packs/Day Years Used Date Smoking Tobacco: Former Cigarettes 0.5 40 1 951 - 1990 Smokeless Tobacco: Never Tobacco Cessation:Counseling Given: Not Answered Alcohol Use Standard Drinks/Week Comments Yes 0 (1 standard drink = 0.6 oz pur e alcohol) occ. drink Feeling Safe Answer Date Recorded Are you in a relationship wi th someone who hurts you emotionally and/or physically? 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 Gender Identity Not on file Sexual Orientation Not on file Last Filed Vital Signs Vital Sign Reading Time Taken Comments Blood Pressure 130/68 05/12/2023 11:50 AM DELIVERY ROUTE DRIVER Pulse 58 10/28/2022 10:23 AM CDT Temperature 36.4 C (97.6 F) 10/28/2022 10:23 AM CDT Respiratory Rate 16 10/28/2022 10:23 AM CDT Oxygen Saturation 93% 10/28/2022 10:23 AM CDT Inhaled Oxygen Concentration - - Weight 95.3 kg (210 lb) 05/25/2023 2:03 PM DELIVERY ROUTE DRIVER Height 171.5 cm (5' 7.5 ) 12/16/2022 10:28 AM CD T Body Mass Index 32.41 12/16/2022 10:28 AM CDT Plan of Treatment Health Maintenance Due Date Last Done Comments DTAP/TDAP/TD VACCINES (1 - Tdap) 1959 PNEUMOCOCCAL VACCINE 50+ YEARS (1 of 2 - PCV) 01/29/19 58 ZOSTER VACCINE (1 of 2) 1989 OSTEOPOROSIS SCREENING 01/30/2004 RSV VACCINE (60+ or ) (1 - 1-dose 75+ series) 2014 INFLUENZA VACCINE (#1) 2024 02/18/2000 Medical Devices Implanted Type Area Engineering Executive Device Identifier Shelf Expiration Date Model / Serial / Lot Cup Schaller Porocoat Acet Shell 56mm 1217-22-056 - [id number] Implanted:Qty: 1 on 10/27/2022 by Jeff Rose MD at [facility] Hip Right: Hip [employer] [id number] 06/19/2032 [id number] / / [id number] Liner Schaller Altrx [id number] Nutrl 1221-40-056 - [id number] Implanted:Qty: 1 on 10/27/2022 by Jeff Rose MD at [facility] Hip Right: Hip [employer] [id number] 06/20/2027 [id number] / / [id number] Stem Fem Actis Hi Colr Sz5 1010-12-050 - [id number] Implanted:Qty: 1 on 10/27/2022 by Jeff Rose MD at [facility] Hip Right: Hip [employer] [id number] 06/19/2032 1010-12-050 / / [id number] Head Fem Cer 03/04 40mm [id number] - [id number] Implanted:Qty: 1 on 10/27/2022 by Jeff Roes MD at [facility] Hip Right: Hip [employer] [id number] 09/19/2027 1365-40-720 / / [id number] Hole Eliminator [place] 124000 - [id number] Implanted:Qty: 1 on 10/27/2022 by Jeff Rose MD at [facility] Other Right: Hip [employer] [id number] 06/19/2032000 / / [id number] Insurance MEDICARE PART A AND B [employer] SUPP Advance Directives For more information, please contact: [phone] * Full Code (Latest Code Status on File) Date Activated Date Inactivated Comments 10/27/2022 11:38 AM 10/28/2022 1:41 PM Care Teams Restaurant Crew Relationship Specialty Start Date End Date Aravind Samano DO [address] [phone] PCP - General Family Practice 05/12/23
--- NOTE | 2024-11-10 18:53 | ED_ITS ---
HPI - Wound/Laceration 2 General: Chief Complaint: Wound/Laceration Stated Complaint: R leg infection Time Seen by Provider: 11/10/24 17:46 History of Present Illness: 84-year-old female presents emergency ro om from urgent care swelling edema of her right lower leg exquisitely tender she had seen previously been started on Augmentin about a week ago despite this it continues to worsen. Subjective fever no vomiting or diarrhea Associated symptoms: Denies chills or fever(s) Related Data Previous Rx's ?Medication ?Instructions ?Recorded albuterol sulfate 90 mcg/actuation 2 puff inhalation Q 6H PRN 01/13/21 aerosol inhaler (Ventolin HFA) bronchospasm #25.5 gram s ipratropium 0.5 mg-albuterol 3 mg 3 ml inhalation Q6H PRN shortness 03/17/21 (2.5 mg base)/3 mL nebulization of breath or wheezing 30 days #360 soln mL cholecalciferol (vitamin D3) 50 50 mcg PO DAILY #90 ca ps 01/09/24 mcg (2,000 unit) capsule rivaroxaban 10 mg tablet (Xarelto) See Rx Instructions .Route 03/17/24 .COMPLEX #30 tabs budesonide-formoterol HFA 160 See Rx Instructions .Rou te 03/30/24 mcg-4.5 mcg/actuation aerosol .COMPLEX #10.2 grams inhaler (Symbicort) tiotropium bromide 18 mcg capsule 1 cap inhalation HINA LY #30 caps 04/25/24 with inhalation device (Spiriva with HandiHaler) metoprolol tartrate 25 mg tablet 12.5 mg (1/2 x 25 mg) PO BID #180 06/30/24 tabs simvastatin 40 mg tablet See Rx Instructions .Route 0 08/09/24 .COMPLEX #90 tabs fluconazole 150 mg tablet 150 mg PO Q3D 2 doses #2 tab s 11/06/24 aluminum-mag hydroxide-simethicone 5 ml PO Q6H PRN ind igestion #3,000 11/12/24 400 mg-400 mg-40 mg/5 mL oral susp mL (Maalox Maximum Strength) amoxicillin 875 mg-potassium 1 tab PO BID 10 days #20 tabs 11/12/24 clavulanate 125 mg tablet azithromycin 250 mg tablet 250 mg PO Q24H 4 days #4 ta bs 11/12/24 famotidine 20 mg tablet 20 mg PO BID 60 days #120 ta bs 11/12/24 furosemide 20 mg tablet 20 mg PO DAILY@0800 60 days #60 11/12/24 tabs acetaminophen 300 mg-codeine 30 mg 1 tab PO BID PRN pa in #60 tabs 11/13/24 tablet doxycycline hyclate 100 mg capsule 100 mg PO BID 10 da ys #20 caps 11/13/24 potassium chloride 10 mEq 10 meq PO DAILY PRN lasix #9 0 tabs 11/13/24 tablet,extended release Allergies Allergy/AdvReac Type Severity Reaction Status Date / Time hydrocodone Allergy ADR-Confusi Verified 11/13/24 15:06 on oxycodone Allergy ADR-Confusi Verified 11/13/24 15:06 on latex AdvReac Intermediate ADR-Itching Verified 11/13/24 15:06 clindamycin AdvReac ADR-Gastrointestinal Verified 11/13/24 15:06 Upset Review of Systems 2 Const: Denies: fever(s) or chills Card: Denies: chest pain Resp: Denies: dyspnea GI: Denies: abdominal pain : Denies: dysuria, urinary frequency or urinary urgency Musc: Reports: extremity pain and extremity swelling Skin/Breast: Denies: rash PFSH ED 2 PFSH: Medical History Urinary frequency CKD (chronic kidney disease) stage 2, GFR 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 ml/min Osteoarthritis of right hip Generalized weakness Hyperparathyroidism Vitamin D deficiency Supplemental oxygen dependent has O2 to use on exertion Chronic venous stasis dermatitis of both lower extremities Hx of pulmonary embolus Osteoporosis refuses treatment Mixed dyslipidemia History of deep vein thrombosis Essential (primary) hypertension Melanoma COPD (chronic obstructive pulmonary disease) Tracheomalacia, acquired Surgical History Hx of tonsillectomy Hx of breast augmentation History of right hip replacement Hx of bilateral cataract extraction History of hysterectomy hyst w/ BSO due to fibroids; no cancer History of lumpectomy of right breast benign History of ear surgery R ear for otosclerosis Family History Father Parkinson disease Mother Heart disease Sister Cancer Lung Sister Cancer Ovarian Social History Smoking and tobacco/nicotine status: former use of tobacco/nicotine Quit status (tobacco/nicotine): has quit using Year quit tobacco: 2001 - 1PPD x 40 Years Alcohol intake: current Alcohol intake frequency: holidays/special occasions only Substance/Drug Use: never Lives independently: Yes Household members: none Marital status: Number of children: 2 Highest education level completed: Some College, No Degree Current occupational status: retired 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 [employer] Do you think of yourself as: Straight/Heterosexual Current gender identity: Female Female Reproductive History: Spontaneous abortions: No Physical Exam 2 Const: COMMON NORMALS: no acute distress GENERAL APPEARANCE: cooperative and comfortable ORIENTATION/CONSCIOUSNESS: Yes awake, Yes oriented to person, Yes oriented to place and Yes oriented to time HENMT: COMMON NORMALS: normocephalic, atraumatic and hearing grossly normal bilaterally HEAD & SCALP: normocephalic and atraumatic Resp: COMMON NORMALS: normal respiratory effort, No retractions, No use of accessory muscles and clear to auscultation bilaterally AUSCULTATION: clear to auscultation bilaterally Cardio: COMMON NORMALS: regular rate, regular rhythm and No murmurs present (Cardio) RATE: regular rate RHYTHM: regular rhythm GI: COMMON NORMALS: Soft to palpation and No hepatosplenomegaly present A USCULTATION: Yes normoactive bowel sounds PALPATION: Yes Soft to palpation, No Tenderness to palpation present (GI), No Guarding due to palpation present (GI) and Yes No hepatosplenomegaly present Extremity: OTHER: 3+ edema of the right lower extremity br eakdown of the skin. There is some fluid blisters present that is reddened erythematous and indurated circumferential around the lower leg extending from the ankle to just distal to the knee. Neuro: SENSORIUM/ORIENTATION: Yes oriented to person, Yes oriented to place and Yes oriented to time Skin: COMMON NORMALS: no rashes or lesions noted GENERAL SKIN EXAM: no rashes or lesions noted Course 2 Vital Signs: Vital signs: Vital Signs Temperature 97.9 F 11/12/24 13:53 Pulse Rate 74 11/12/24 13:53 Respiratory Rate 18 11/12/24 13:53 Blood Pressure 160/98 11/12/24 13:53 Pulse Oximetry 92 11/12/24 13:53 Oxygen Delivery Me thod Nasal Cannula 11/12/24 08:46 Oxygen Flow Rate 1 11/12/24 08:46 MDM - Wound/Laceration Medical Decision Making Cellulitis secondary to cat scratch. Started on Zosyn discussed with hospitalist orders written Medical Records I reviewed the patient's medical records. Lab Data I reviewed the patient's lab results. 11/12/24 03:27 11/12/24 03:27 Radiology Impressions Chest X-Ray 11/10/24 18:58 IMPRESSION: No acute findings. Venous Duplex 11/10/24 18:58 IMPRESSION: No evidence of deep vein thrombosis. Laboratory Results WBC 7.18 10^3/uL (3.29-11.43) 11/10/24 19:11 RBC 4.91 10^6/uL (3.85-5.65) 11/10/24 19:11 Hgb 15.20 g/dL (11.27-16.99) 11/10/24 19:11 Hct 47.0 % (36-47) 11/10/24 19:11 MCV 95.7 fl (85-98) 11/10/24 19:11 MCH 31.0 pg (27-33) 11/10/24 19:11 MCHC 32.3 g/dL (30-55) 11/10/24 19:11 RDW 13.8 % (12.1-15.1) 11/10/24 19:11 Plt Count 197 10^3/cmm (157-399) 11/10/24 19:11 MPV 10.0 fL (7.4-10.4) 11/10/24 19:11 Neut % (Auto) 65.5 % 11/10/24 19:11 Lymph % (Auto) 17.7 % 11/10/24 19:11 Swain % (Auto) 15.2 % 11/10/24 19:11 Eos % (Auto) 0.6 % 11/10/24 19:11 Baso % (Auto) 0.6 % 11/10/24 19:11 Neut # (Auto) 4.71 10^3/uL (1.8-7.7) 11/10/24 19:11 Lymph # (Auto) 1.3 10^3/uL (0.8-4.8) 11/10/24 19:11 Swain # (Auto) 1.1 10^3/uL (0.2-0.9) H 11/10/24 19:11 Eos # (Auto) 0.0 10^3/uL (0.0-0.8) 11/10/24 19:11 Baso # (Auto) 0.0 10^3/uL (0.0-0.1) 11/10/24 19:11 Nucleated RBC % (auto) 0 % 11/10/24 19:11 Nucleated RBCs # 0.0 /100WBC 11/10/24 19:11 ESR 32 mm/hr (0-15) H 11/10/24 19:11 Sodium 139 mmol/L (136-145) 11/10/24 19:11 Potassium 3.5 mmol/L (3.5-5.1) 11/10/24 19:11 Chloride 102 mmol/L (98-107) 11/10/24 19:11 Carbon Dioxide 25 mmol/L (22-29) 11/10/24 19:11 Anion Gap 15.5 (5-19) 11/10/24 19:11 BUN 11 mg/dL (8-23) 11/10/24 19:11 Creatinine 1.0 mg/dL (0.5-0.9) H 11/10/24 19:11 GFR Calculation Not Reportable 11/10/24 19:11 Glucose 101 mg/dL (65-115) 11/10/24 19:11 Calculated Osmolality 288 mOsm/kg (285-295) 11/10/24 19:11 Lactic Acid 1.1 mmol/L (0.5-2.2) 11/10/24 19:11 Calcium 9.0 mg/dL (8.5-10.5) 11/10/24 19:11 Total Bilirubin 0.6 mg/dL (0.15-1.2) 11/10/24 19:11 AST 14 U/L (0-32) 11/10/24 19:11 ALT 8 U/L (0-33) 11/10/24 19:11 Alkaline Phosphatase 87 U/L (35-105) 11/10/24 19:11 C-Reactive Protein 107.3 mg/L (0.0-4.9) H 11/10/24 19:11 NT-Pro-B Natriuret Pep 193 pg/mL (0-450) 11/10/24 19:11 Total Protein 7.2 g/dL (6.6-8.7) 11/10/24 19:11 Albumin 3.7 g/dL (3.5-5.2) 11/10/24 19:11 Globulin 3.5 g/dL (1.3-4.6) 11/10/24 19:11 Procalcitonin 0.11 ng/mL (0-0.5) 11/10/24 19:11 All radiology interpretation(s) finalized by discharge Discharge Plan Discharge Patient Disposition: Admitted As Inpatient Admit Provider: Edgard Hoskins Clinical Impression: Essential (primary) hypertension, Cellulitis of right lower extremity, Cat scratch Condition: Stable Discharge Diet: Advance as tolerated and Usual diet Discharge Activity: Resume usual activity Coding Level of Care Code ED Part Time Flexible Clerk for Raímrez López
--- NOTE | 2024-11-10 18:58 | XRR_ITS ---
PROCEDURE INFORMATION: Exam: XR Chest Exam date and time: 11/10/2024 7:37 PM Age: 84 years old Clinical indication: Shortness of breath; Prior surgery; Surgery date: 6+ months; Surgery type: Breast augmentation; SOB with hypoxia. History of copd. ; Additional info: Dyspnea/cough TECHNIQUE: Imaging protocol: Radiologic exam of the chest. Views: 1 view. COMPARISON: CR XR chest 2V* [id number] 07/14/2021 1:59 PM FINDINGS: Lungs: Mild chronic interstitial coarsening and subtle chronic opacity in the periphery of the right mid lung, but no new airspace consolidation or overt pulmonary edema. Pleural spaces: Unremarkable. No pleural effusion. No pneumothorax. Heart/Mediastinum: Unremarkable. No cardiomegaly. Bones/joints: Unremarkable. XR/XR chest 1V portable [id number] IMPRESSION: No acute findings.
--- NOTE | 2024-11-10 18:58 | USR_ITS ---
PROCEDURE INFORMATION: Exam: US Duplex Right Lower Extremity Veins, Limited Exam date and time: 11/10/2024 7:20 PM Age: 84 years old Clinical indication: Edema, localized; Lower extremity, right; Additional info: Leg swelling TECHNIQUE: Imaging protocol: Real-time duplex ultrasound of the right extremity with 2-D de la fuente scale, color Doppler flow and spectral waveform analysis including responses to compression and other maneuvers (when performed) with image documentation. Limited exam was focused on the right lower extremity veins. COMPARISON: US renal BI* [id number] 04/05/2022 10:27 PM FINDINGS: Right deep veins: All imaged right lower extremity deep veins demonstrate normal flow, compressibility, and/or augmentation without evidence of deep venous thrombosis. Superficial veins: Greater saphenous vein at the saphenofemoral junction is patent without thrombus. Soft tissues: Subcutaneous edema is noted. US/[place] [id number] IMPRESSION: No evidence of deep vein thrombosis.
[2024-11-10 19:30] LABS: Hematocrit 47.0 % (36-47); Hemoglobin 15.20 g/dL (11.27-16.99); Mean Corpuscular HGB Conc 32.3 g/dL (30-55); Mean Corpuscular Hemoglobin 31.0 pg (27-33); Mean Corpuscular Volume 95.7 fl (85-98); Nucleated Red Blood Cells % 0 %; Platelet Count 197 10^3/cmm (157-399); Red Blood Count 4.91 10^6/uL (3.85-5.65); White Blood Count 7.18 10^3/uL (3.29-11.43)
[2024-11-10] MEDS: piperacillin-tazobactam 3.375 GM in sodium chloride 0.9% (plus) 50 ML IV (19:43)
[2024-11-10 19:46] LABS: Lactic Sepsis W/Reflex 1.1 mmol/L (0.5-2.2)
[2024-11-10 19:47] LABS: Alanine Aminotransferase 8 U/L (0-33); Albumin Level 3.7 g/dL (3.5-5.2); Alkaline Phosphatase 87 U/L (35-105); Anion Gap 15.5 (5-19); Aspartate Amino Transferase 14 U/L (0-32); Blood Urea Nitrogen 11 mg/dL (8-23); Calcium 9.0 mg/dL (8.5-10.5); Carbon Dioxide 25 mmol/L (22-29); Chloride 102 mmol/L (98-107); Globulin 3.5 g/dL (1.3-4.6); Glucose 101 mg/dL (65-115); Osmolality Calculated 288 mOsm/kg (285-295); Potassium 3.5 mmol/L (3.5-5.1); Sodium 139 mmol/L (136-145); Total Protein 7.2 g/dL (6.6-8.7)
[2024-11-10 20:01] LABS: Creatinine Clr Calc Pharmacy 49.1628
--- NOTE | 2024-11-10 20:37 | P.HP_ITS ---
Providers/Chief Complaint 2 Primary Care Provider: Meagan Soriano MD Chief Complaint: Dr Candy Marroquin leg infection History of Present Illness Sana Coto is a 84 year old female with a past medical history of bilateral lower extremity edema, CKD stage II, history of DVT, hypertension, COPD who presents [facility] due to right lower extremity erythema, swelling, tenderness, warmth, weeping edema. Currently patient alert oriented x 3, following commands, he tells me that over a week ago, she had a cat scratch to her right lower extremity, her cat is immunized to rabies, and actually received rabies vaccination just recently, since then she treated her right lower extremity with peroxide, alcohol, mupirocin, but the right lower extremity erythema, swelling, tenderness, warmth persisted, she sought urgent care she received Tdap vaccination, p.o. antibiotics, she was hoping it would improve, but continues to have expanding erythema, swelling, tenderness, warmth, down to her foot, so she presented to urgent care who redirected patient to the emergency room, she has received Zosyn, no fevers, no chills, no lymphadenopathy Review of Systems 2 Const: Denies: fever(s) or chills Card: Denies: chest pain Resp: Denies: dyspnea Medications/Allergies Home Medications ?Medication ?Instructions ?Recorded ?Confirmed ?Last Taken ?Type albuterol sulfate 90 mcg/actuation 2 puff inhalation Q 6H PRN 01/13/21 11/10/24 Unknown Rx aerosol inhaler (Ventolin HFA) bronchospasm #25.5 gram s ipratropium 0.5 mg-albuterol 3 mg 3 ml inhalation Q6H PRN shortness 03/17/21 11/10/24 Unknown Rx (2.5 mg base)/3 mL nebulization of breath or wheezing 30 days #360 soln mL nystatin 100,000 unit/gram topical 1 applic topical BI D #60 grams 12/03/22 11/10/24 Unknown Rx powder acetaminophen 300 mg-codeine 30 mg 1 tab PO BID PRN pa in #60 tabs 05/24/23 11/10/24 Unknown Rx tablet RSVPreF3 antigen-AS01E 0.5 ml IM ONCE #1 ea 01/05/2 4 11/10/24 Unknown Rx adjuvant(PF) 120 mcg/0.5 mL IM suspension, kit (Arexvy (PF)) cholecalciferol (vitamin D3) 50 50 mcg PO DAILY #90 ca ps 01/09/24 11/10/24 Unknown Rx mcg (2,000 unit) capsule furosemide 40 mg tablet 20 mg (1/2 x 40 mg) PO DAILY PRN 01/09/24 11/10/24 Unknown Rx edema #30 tabs furosemide 20 mg tablet 20 mg PO QAM #90 tabs 11/10/24 Unknown Rx potassium chloride 10 mEq 10 meq PO DAILY #90 tabs 10/1211/10/24 Unknown Rx tablet,extended release rivaroxaban 10 mg tablet (Xarelto) See Rx Instructions .Route 03/17/24 11/10/24 Unknown Rx .COMPLEX #30 tabs budesonide-formoterol HFA 160 See Rx Instructions .Rou te 03/30/24 11/10/24 Unknown Rx mcg-4.5 mcg/actuation aerosol .COMPLEX #10.2 grams inhaler (Symbicort) tiotropium bromide 18 mcg capsule 1 cap inhalation HINA LY #30 caps 04/25/24 11/10/24 Unknown Rx with inhalation device (Spiriva with HandiHaler) metoprolol tartrate 25 mg tablet 12.5 mg (1/2 x 25 mg) PO BID #180 06/30/24 11/10/24 Unknown Rx tabs simvastatin 40 mg tablet See Rx Instructions .Route 0 08/09/24 11/10/24 Unknown Rx .COMPLEX #90 tabs amoxicillin 875 mg-potassium 1 tab PO BID 7 days #14 t abs 11/06/24 11/10/24 Unknown Rx clavulanate 125 mg tablet fluconazole 150 mg tablet 150 mg PO Q3D 2 doses #2 tab s 11/06/24 11/10/24 Unknown Rx Allergies Allergy/AdvReac Type Severity Reaction Status Date / Time hydrocodone Allergy ADR-Confusi Verified 11/10/24 15:44 on oxycodone Allergy ADR-Confusi Verified 11/10/24 15:44 on latex AdvReac Intermediate ADR-Itching Verified 11/10/24 15:44 clindamycin AdvReac ADR-Gastrointestinal Verified 11/10/24 15:44 Upset PFSH Acute 2 PFSH: Medical History Urinary frequency CKD (chronic kidney disease) stage 2, GFR 60-89 ml/min Osteoarthritis of right hip Generalized weakness Hyperparathyroidism Vitamin D deficiency Supplemental oxygen dependent has O2 to use on exertion Chronic venous stasis dermatitis of both lower extremities Hx of pulmonary embolus Osteoporosis refuses treatment Mixed dyslipidemia History of deep vein thrombosis Essential (primary) hypertension Melanoma COPD (chronic obstructive pulmonary disease) Tracheomalacia, acquired Surgical History Hx of tonsillectomy Hx of breast augmentation History of right hip replacement Hx of bilateral cataract extraction History of hysterectomy hyst w/ BSO due to fibroids; no cancer History of lumpectomy of right breast benign History of ear surgery R ear for otosclerosis Family History Father Parkinson disease Mother Heart disease Sister Cancer Lung Sister Cancer Ovarian Social History Smoking and tobacco/nicotine status: unknown if used tobacco/nicotine Quit status (tobacco/nicotine): has quit using Year quit tobacco: 2001 - 1PPD x 40 Years Alcohol intake: current Alcohol intake frequency: holidays/special occasions only Substance/Drug Use: never Lives independently: Yes Household members: none Marital status: Number of children: 2 Highest education level completed: Some College, No Degree Current occupational status: retired 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 Do you think of yourself as: Straight/Heterosexual Current gender identity: Female Female Reproductive History: Spontaneous abortions: No Vitals/I&O/Wt Last Vital Signs Temp 97.8 F 11/10/24 18:51 Pulse 74 11/10/24 18:51 Resp 16 11/10/24 18:51 BP 183/100 11/10/24 18:51 Pulse Ox 94 11/10/24 18:51 O2 Del Method Room Air 11/10/24 18:51 11/10/24 11/10/24 11/10/24 06:59 14:59 22:59 Intake Total 50 / 50 Balance 50 / 50 Weight last 48 hrs Weight 93.44 kg Physical Exam 2 Const: COMMON NORMALS: no acute distress and patient oriented x3 HENMT: COMMON NORMALS: normocephalic HEAD & SCALP: normocephalic Neck/C-Spine: COMMON NORMALS: no JVD Resp: COMMON NORMALS: normal respiratory effort, No retractions, No use of accessory muscles and clear to auscultation bilaterally AUSCULTATION: clear to auscultation bilaterally Cardio: COMMON NORMALS: regular rate, regular rhythm, S1 normal heart sound present and S2 normal heart sound present RATE: regular rate RHYTHM: r egular rhythm HEART SOUNDS: S1 normal heart sound present and S2 normal heart sound present GI: COMMON NORMALS: Normal to inspection, nondistended, normoactive bowel sounds present, Soft to palpation and non-tender Neuro: COMMON NORMALS: patient oriented x3, CN's II-XII intact bilaterally and moves all extremities Psych: COMMON NORMALS: mental status grossly normal Skin: NARRATIVE SKIN EXAM: Erythema, swelling, tenderness, warmth, extending from mid fields, down to the forefoot, Area of cat bite mid fields, lateral, no palpable underlying lesion She does have just lateral to cat scratch superficial pustular lesion that appears to be ruptured,, with some purulent drainage, lateral to this, measuring 1 x 1 cm She has 2+ pitting edema, weeping edema Data 11/10/24 19:11 11/10/24 19:11 Micro: Microbiology 11/10/24 19:11 Blood Culture - Preliminary Blood SPECIMEN COLLECTED 11/10/24 19:11 Blood Culture - Preliminary Blood SPECIMEN COLLECTED A&P Assessment and plan 1. Chronic venous stasis dermatitis of both lower extremities: 2. History of deep vein thrombosis: 3. CKD (chronic kidney disease) stage 2, GFR 60-89 ml/min: 4. Edema of both lower extremities: 5. Cellulitis of right lower extremity: 6. Cat scratch: Plan: Right lower extremity cellulitis -With concern for possible cat scratch disease - Patient's cat Rubina has received all her immunizations including rabies about a month ago - Received Tdap 11/06 - Given that she developed a pustular lesion just lateral to the area of the cat scratch, we will start her on azithromycin for possible cat scratch disease Plan - Order Bartonella titers - Blood cultures - Wound cultures - MRSA - Vancomycin - Zosyn - Azithromycin 500 mg followed by 250 mg daily - Monitor clinical progress -Venous ultrasound -1 dose IV Lasix - Will hold off on CT imaging, but if patient develops pustular lesion she might require surgical debridement or if no clinical improvement will consider CT of right lower extremity - Full code - Xarelto for DVT prophylaxis PDMP PDMP Reviewed: Not Reviewed Attestations 2 Medical Necessity Statement*: Patient requires hospitalization, inpatient, greater than 2 midnights, for right lower extremity cellulitis, cat scratch, weeping edema Diagnoses Chronic venous stasis dermatitis of both lower extremities I87.2 History of deep vein thrombosis Z86.718 CKD (chronic kidney disease) stage 2, GFR 60-89 ml/min N18.2 Edema of both lower extremities R60.0 Cellulitis of right lower extremity L03.115 Cat scratch W55.03XA
[2024-11-10 21:08] LABS: NT Pro B Type Natriuretic Pept 193 pg/mL (0-450); Procalcitonin 0.11 ng/mL (0-0.5)
[2024-11-10 22:51] LABS: Glucose Urine UA Negative (Normal); Nitrate Urine Negative (Negative); Specific Gravity, Urine 1.028 (1.005-1.030)
[2024-11-10 22:55] LABS: Add Urine Microscopic? YES
[2024-11-10] MEDS: acetaminophen-codeine 300-30mg Tablet 1 TAB PO (23:30)
[2024-11-10] MEDS: FUROsemide 10 mg/mL SDV 4mL 40 MG IVP (23:30)
[2024-11-10] MEDS: ATORVASTATIN 10 MG TABLET 20 MG PO (23:30)
[2024-11-11] VITALS (9 sets, daily range): BP systolic 124–155; BP diastolic 65–92; PULSE 64–81; RESP 16–20; TEMP 36.4–36.8; O2SAT 90–94
[2024-11-11] MEDS: piperacillin-tazobactam 3.375 GM in sodium chloride 0.9% (plus) 50 ML IV ×2 (04:14→11:20)
[2024-11-11 04:39] LABS: Hematocrit 48.1 % (36-47); Hemoglobin 15.30 g/dL (11.27-16.99); Mean Corpuscular HGB Conc 31.8 g/dL (30-55); Mean Corpuscular Hemoglobin 30.6 pg (27-33); Mean Corpuscular Volume 96.2 fl (85-98); Nucleated Red Blood Cells % 0 %; Platelet Count 201 10^3/cmm (157-399); Red Blood Count 5.00 10^6/uL (3.85-5.65); White Blood Count 7.54 10^3/uL (3.29-11.43)
[2024-11-11 04:50] LABS: Estmated Average Glucose 100; Hemoglobin A1C 5.1 % (4.0-6.0)
[2024-11-11 04:53] LABS: Anion Gap 15.9 (5-19); Blood Urea Nitrogen 10 mg/dL (8-23); Calcium 9.0 mg/dL (8.5-10.5); Carbon Dioxide 26 mmol/L (22-29); Chloride 101 mmol/L (98-107); Glucose 104 mg/dL (65-115); Osmolality Calculated 287 mOsm/kg (285-295); Potassium 3.9 mmol/L (3.5-5.1); Sodium 139 mmol/L (136-145)
[2024-11-11 04:59] LABS: Creatinine Clr Calc Pharmacy 49.4332
--- NOTE | 2024-11-11 11:26 | PC.CHAP ---
Pastoral Care Encounter/Spiritual Assessment Type of Contact [] Declined country printer apprentice visit [] Patient/Family/Request visit [] Outpatient visit [] Follow-up visit [] Physician referral [] Code/Alert [x] Routine visit [] Staff referral [] Actively dying [] Patient sleeping [] Family support [] [] Out of room [] Palliative care [] [] Receiving care in room [] Pre-surgical visit [] Trauma [] Long length of stay [] ICU visit [] Other: Relational/Emotional Strength [x] Patient feels connected with others/family/visitors/staff [] Distress [] Loneliness/isolation [] Abandonment Spirituality of Patient [x] Person of Caterina [] Attends Jew of their Caterina [x] Believes in Prayer [] Reads Bible or Judaism materials [] There are Spiritual issues to be addressed Bush Hog Operator Interventions [x] Prayer [x] Active listening [] Non-anxious presence [] Spiritual/emotional support [] Crisis/trauma care [] Spiritual counseling [] Bereavement support [] Provided bereavement packet [] Provided Bible/devotional materials [] Provided toy/stuffed animal, coloring book to patient or family member [] Provided Communion [] Anointing/[place] [] Salvation [] Completed spiritual assessment [] Other: Impact on Illness or Injury [] Angry [] Fearful [x] Anxious [] Often cries [] Exhaustion [] Unable to work [] Unable to attend tenriism [] Unable to walk/stand [] Unable to read [] Unable to drive [] Unable to eat/drink [] Unable to sleep [] Unable to be with family [] Patient intubated [] Other: Summary Time spent with patient
--- NOTE | 2024-11-11 17:05 | P.PN_ITS ---
Subjective 2 Subjective: the patient was seen in the morning, doing well no acute issues currently feeling better than yesterday and her cellulitis has much improved on the left leg Vitals/I&O/Wt Last Vital Signs Temp 98.0 F 11/11/24 15:44 Pulse 81 11/11/24 15:44 Resp 20 H 11/11/24 15:44 BP 138/80 11/11/24 15:44 Pulse Ox 90 11/11/24 15:44 O2 Del Method Room Air 11/11/24 15:44 O2 Flow Rate 2 11/10/24 23:03 11/11/24 11/11/24 11/11/24 06:59 14:59 22:59 Intake Total 550 / 600 304 / 304 50 / 354 Output Total 2550 / 2550 700 / 700 200 / 900 Balance -2000 / -1950 -396 / -396 -150 / -546 Weight last 48 hrs Weight 99.155 kg Weight 97.931 kg Weight 93.44 kg Physical Exam 2 Narrative: General: Alert oriented x3, patient seen lying comfortably HEENT: Normocephalic, atraumatic, EOMI, breathing at room air Cardio: Regular rate rhythm, normal S1-S2, no murmurs rubs gallops, JVD normal Respiratory: Good bilateral air entry, no wheezes no rhonchi appreciated GI: Abdomen soft, nontender, nondistended, normoactive bowel sounds present all 4 quadrants, Neuro: Cranial nerves II to XII intact, strength 5/5, sensation 5/5, no gross neurological deficit Behavior: Appropriate and cooperative Extremities: bilateral LLE lymphedema, with signs of cellulitis on the right leg below knee and doing down below the demarcation line Skin: Visible skin intact, no rashes Data 11/11/24 04:13 11/11/24 04:13 Micro: Microbiology 11/10/24 19:11 Blood Culture - Preliminary Blood SPECIMEN COLLECTED 11/10/24 19:11 Blood Culture - Preliminary Blood SPECIMEN COLLECTED A&P Assessment and plan 1. Chronic venous stasis dermatitis of both lower extremities: 2. History of deep vein thrombosis: 3. CKD (chronic kidney disease) stage 2, GFR 60-89 ml/min: 4. Edema of both lower extremities: 5. Cellulitis of right lower extremity: 6. Cat scratch: Plan: Right lower extremity cellulitis -With concern for possible cat scratch disease?Patient's cat Rubina has received all her immunizations including rabies about a month ago,- Received Tdap 11/06 - FU with bartonella work up - continue azithromycin - Blood cultures growth till date negative - MRSA negative, discontinue vancomycin since there is no risk of MRSA and zosyn, descalate to augmentin high dose - Monitor clinical progress -Venous ultrasound negative - but if patient develops pustular lesion she might require surgical debridement or if no clinical improvement will consider CT of right lower extremity - 20mg oral Lasix qam - Full code DVT: - Xarelto for DVT KEVIN on CKD: monitor renal parameters, avoid nephrotoxic drugs and maintain euvolemic state Chronic venous stasis and lymphedema: compression stockings at home and surgery FU lasix 20mg oral daily, and keep an eye on renal functions Diet: regular PDMP PDMP Reviewed: Not Reviewed Attestations 2 Medical Necessity Statement*: the patient will stay for further management of her left leg cellulitis Time Spent in Patient Care: 16 - 35 minutes (>than 50% of time sp ent in counselling and/or direct pt care on unit) . Other Attestations: Patient condition has been discussed at length with the patient/family, I have independently reviewed the chart labs imaging and diagnostics and EKG. the goals of care and code status with the patient/family/NOK/legal enrollment eligibility representative, and documented accordingly. The patient/family has been informed about the current condition and further plan of care. Agreed with the plan of care and understood without any language barrier. This documentation was created by [employer] crime scene examiner software. Every effort was made to ensure accuracy of crime scene examiner. Any obvious errors or omissions should be clarified with the author of the document. Coding Level of Care Code Acute Code for Chg Fwd Diagnoses Chronic venous stasis dermatitis of both lower extremities I87.2 History of deep vein thrombosis Z86.718 CKD (chronic kidney disease) stage 2, GFR 60-89 ml/min N18.2 Edema of both lower extremities R60.0 Cellulitis of right lower extremity L03.115 Cat scratch W55.03XA
[2024-11-11] MEDS: ATORVASTATIN 10 MG TABLET 20 MG PO (20:57)
[2024-11-11] MEDS: acetaminophen-codeine 300-30mg Tablet 1 TAB PO (20:57)
[2024-11-12 03:53] VITALS: BP 150/83; PULSE 65; RESP 18; TEMP 36.4; O2SAT 93
[2024-11-12 04:43] LABS: Hematocrit 40.6 % (36-47); Hemoglobin 13.00 g/dL (11.27-16.99); Mean Corpuscular HGB Conc 32.0 g/dL (30-55); Mean Corpuscular Hemoglobin 31.1 pg (27-33); Mean Corpuscular Volume 97.1 fl (85-98); Nucleated Red Blood Cells % 0 %; Platelet Count 187 10^3/cmm (157-399); Red Blood Count 4.18 10^6/uL (3.85-5.65); White Blood Count 5.99 10^3/uL (3.29-11.43)
[2024-11-12 05:02] LABS: Alanine Aminotransferase 7 U/L (0-33); Albumin Level 3.0 g/dL (3.5-5.2); Alkaline Phosphatase 68 U/L (35-105); Anion Gap 13.7 (5-19); Aspartate Amino Transferase 13 U/L (0-32); Blood Urea Nitrogen 11 mg/dL (8-23); Calcium 8.8 mg/dL (8.5-10.5); Carbon Dioxide 27 mmol/L (22-29); Chloride 106 mmol/L (98-107); Globulin 2.7 g/dL (1.3-4.6); Glucose 102 mg/dL (65-115); Osmolality Calculated 296 mOsm/kg (285-295); Potassium 3.7 mmol/L (3.5-5.1); Sodium 143 mmol/L (136-145); Total Protein 5.7 g/dL (6.6-8.7)
[2024-11-12 05:07] LABS: Creatinine Clr Calc Pharmacy 49.9043
[2024-11-12 07:37] VITALS: BP 153/76; PULSE 64; RESP 16; TEMP 36.5; O2SAT 94
[2024-11-12 08:46] VITALS: PULSE 71; RESP 18; O2SAT 95
[2024-11-12 12:33] VITALS: BP 160/98; PULSE 74; RESP 18; TEMP 36.6; O2SAT 92
--- NOTE | 2024-11-12 13:20 | PM.DCS ---
Discharge Providers Date of Admission: 11/10/24 19:45 Date of Discharge: November 12, 2024 Attending Provider at Admission: Edgard Hoskins MD Attending Provider at Discharge: Reji Graf MD Primary Care Provider: Meagan Soriano MD Diagnoses at Discharge Discharge Diagnosis 1. Chronic venous stasis dermatitis of both lower extremities: 2. History of deep vein thrombosis: 3. CKD (chronic kidney disease) stage 2, GFR 60-89 ml/min: 4. Edema of both lower extremities: 5. Cellulitis of right lower extremity: 6. Cat scratch: Reason for Visit Reason for Visit: Dr Candy Marroquin leg infection Brief History: Sana Coto is a 84 year old female with a past medical history of bilateral lower extremity edema, CKD stage II, history of DVT, hypertension, COPD who presents [facility] due to right lower extremity erythema, swelling, tenderness, warmth, weeping edema. Currently patient alert oriented x 3, following commands, he tells me that over a week ago, she had a cat scratch to her right lower extremity, her cat is immunized to rabies, and actually received rabies vaccination just recently, since then she treated her right lower extremity with peroxide, alcohol, mupirocin, but the right lower extremity erythema, swelling, tenderness, warmth persisted, she sought urgent care she received Tdap vaccination, p.o. antibiotics, she was hoping it would improve, but continues to have expanding erythema, swelling, tenderness, warmth, down to her foot, so she presented to urgent care who redirected patient to the emergency room, she has received Zosyn, no fevers, no chills, no lymphadenopathy Hospital Course Hospital Course Patient admitted in the hospital with right leg cellulitis. She was started on broad-spectrum antibiotics. Blood cultures were sent and did not grow anything. The patient was kept on Zosyn and vancomycin and after review of the blood cultures and patient improvement. De-escalated to azithromycin to cover for cat scratch and Augmentin based upon the degree of cellulitis as per guidelines. The patient renal functions were monitored along with electrolytes and correction was provided accordingly. The patient underwent venous duplex scan did not show any DVT. The patient is already taking rivaroxaban. To continue on Augmentin from 10 to 14 days and azithromycin for further 4 days. Her hospital course was uncomplicated To follow-up with the primary care doctor postdischarge follow-up and to see vascular surgeon for chronic lymphedema. The patient has been informed about her plan of care without any language barrier. All the management with risk and benefits were consult and the patient agreed with it. Physical Exam Narrative: General: Alert oriented x3, patient seen lying comfortably HEENT: Normocephalic, atraumatic, EOMI, breathing at room air Cardio: Regular rate rhythm, normal S1-S2, no murmurs rubs gallops, JVD normal Respiratory: Good bilateral air entry, no wheezes no rhonchi appreciated GI: Abdomen soft, nontender, nondistended, normoactive bowel sounds present all 4 quadrants, Neuro: Cranial nerves II to XII intact, strength 5/5, sensation 5/5, no gross neurological deficit Behavior: Appropriate and cooperative Extremities: bilateral LLE lymphedema, with signs of cellulitis on the right leg below knee and much improved with resolution of the skin edema relatively to yesterday and better mobility of the limb Skin: Visible skin intact, no rashes Discharge Data Studies Completed and Pending Completed Studies During Hospitalization Category Date Time Status XR chest 1V portable [id number] Stat Exams 11/10/24 18:58 Completed US venous duplex lower extremity RT [CV venous duplex Ultrasound 11/10/24 18:[place] [id number]] Stat Pending at discharge Category Date Time Status Bartonella Henselae AB w/Titer Routine Lab 11/10/24 22:46 Received Bartonella Species AB(IgG,IgM) Routine Lab 11/10/24 22:46 Received Blood Culture Stat Lab 11/10/24 19:11 Results Wound Culture and Gram Stain Stat Lab 11/10/24 20:37 Uncollected Radiology Impressions Chest X-Ray 11/10/24 18:58 IMPRESSION: No acute findings. Venous Duplex 11/10/24 18:58 IMPRESSION: No evidence of deep vein thrombosis. Laboratory Results WBC 5.99 10^3/uL (3.29-11.43) 11/12/24 03:27 RBC 4.18 10^6/uL (3.85-5.65) 11/12/24 03:27 Hgb 13.00 g/dL (11.27-16.99) 11/12/24 03:27 Hct 40.6 % (36-47) 11/12/24 03:27 MCV 97.1 fl (85-98) 11/12/24 03:27 MCH 31.1 pg (27-33) 11/12/24 03:27 MCHC 32.0 g/dL (30-55) 11/12/24 03:27 RDW 13.8 % (12.1-15.1) 11/12/24 03:27 Plt Count 187 10^3/cmm (157-399) 11/12/24 03:27 MPV 10.1 fL (7.4-10.4) 11/12/24 03:27 Neut % (Auto) 54.0 % 11/12/24 03:27 Lymph % (Auto) 25.5 % 11/12/24 03:27 [place] % (Auto) 16.9 % 11/12/24 03:27 Eos % (Auto) 2.5 % 11/12/24 03:27 Baso % (Auto) 0.8 % 11/12/24 03:27 Neut # (Auto) 3.23 10^3/uL (1.8-7.7) 11/12/24 03:27 Lymph # (Auto) 1.5 10^3/uL (0.8-4.8) 11/12/24 03:27 [place] # (Auto) 1.0 10^3/uL (0.2-0.9) H 11/12/24 03:27 Eos # (Auto) 0.2 10^3/uL (0.0-0.8) 11/12/24 03:27 Baso # (Auto) 0.1 10^3/uL (0.0-0.1) 11/12/24 03:27 Nucleated RBC % (auto) 0 % 11/12/24 03:27 Nucleated RBCs # 0.0 /100WBC 11/12/24 03:27 ESR 32 mm/hr (0-15) H 11/10/24 19:11 Sodium 143 mmol/L (136-145) 11/12/24 03:27 Potassium 3.7 mmol/L (3.5-5.1) 11/12/24 03:27 Chloride 106 mmol/L (98-107) 11/12/24 03:27 Carbon Dioxide 27 mmol/L (22-29) 11/12/24 03:27 Anion Gap 13.7 (5-19) 11/12/24 03:27 BUN 11 mg/dL (8-23) 11/12/24 03:27 Creatinine 1.0 mg/dL (0.5-0.9) H 11/12/24 03:27 GFR Calculation Not Reportable 11/12/24 03:27 Glucose 102 mg/dL (65-115) 11/12/24 03:27 Estimat Average Glucose 100 11/11/24 04:13 Hemoglobin A1c 5.1 % (4.0-6.0) 11/11/24 04:13 Calculated Osmolality 296 mOsm/kg (285-295) H 11/12/24 03:27 Lactic Acid 1.1 mmol/L (0.5-2.2) 11/10/24 19:11 Calcium 8.8 mg/dL (8.5-10.5) 11/12/24 03:27 Total Bilirubin 0.4 mg/dL (0.15-1.2) 11/12/24 03:27 AST 13 U/L (0-32) 11/12/24 03:27 ALT 7 U/L (0-33) 11/12/24 03:27 Alkaline Phosphatase 68 U/L (35-105) 11/12/24 03:27 C-Reactive Protein 107.3 mg/L (0.0-4.9) H 11/10/24 19:11 NT-Pro-B Natriuret Pep 193 pg/mL (0-450) 11/10/24 19:11 Total Protein 5.7 g/dL (6.6-8.7) L 11/12/24 03:27 Albumin 3.0 g/dL (3.5-5.2) L 11/12/24 03:27 Globulin 2.7 g/dL (1.3-4.6) 11/12/24 03:27 Procalcitonin 0.11 ng/mL (0-0.5) 11/10/24 19:11 Urine Color Dark yellow (Yellow) A 11/10/24 22:22 Urine Appearance Clear (CLEAR) 11/10/24 22:22 Urine pH 5.0 (5-7) 11/10/24 22:22 Ur Specific [place] 1.028 (1.005-1.030) 11/10/24 22:22 Urine Protein 1+ (Negative) A 11/10/24 22:22 Urine Glucose (UA) Negative (Normal) 11/10/24 22:22 Urine Ketones Trace (Negative) 11/10/24 22:22 Urine Blood Negative (Negative) 11/10/24 22:22 Urine Nitrate Negative (Negative) 11/10/24 22:22 Urine Bilirubin Negative (Negative) 11/10/24 22:22 Urine Urobilinogen 1.0 mg/dL (Negative) 11/10/24 22:22 Ur Leukocyte Esterase Negative (Negative) 11/10/24 22:22 Urine RBC 0-2 /hpf (0-2) 11/10/24 22:22 Urine WBC 0-5 /hpf (0-5) 11/10/24 22:22 Ur Squamous Epith Cells 0-5 /hpf (0-5) 11/10/24 22:22 Amorphous Sediment Not Reportable 11/10/24 22:22 Urine Bacteria None seen /hpf (NONE) 11/10/24 22:22 Hyaline Casts 0.81 /lpf 11/10/24 22:22 Vitals Last Vital Signs Temp 97.9 F 11/12/24 12:33 Pulse 74 11/12/24 12:33 Resp 18 11/12/24 12:33 BP 160/98 11/12/24 12:33 Pulse Ox 92 11/12/24 12:33 O2 Del Method Nasal Cannula 11/12/24 08:46 O2 Flow Rate 1 11/12/24 08:46 Discharge Plan Discharge Patient Disposition: Home Condition: Stable Prescriptions: New famotidine 20 mg tablet 20 mg PO BID 60 Days Qty: 120 0RF azithromycin 250 mg Tablet 250 mg PO Q24H 4 Days Qty: 4 0RF amoxicillin-pot clavulanate 875-125 mg Tablet 1 tab PO BID 10 Days Qty: 20 0RF furosemide 20 mg Tablet 20 mg PO DAILY@0800 60 Days Qty: 60 0RF alum-mag hydroxide-simeth [Maalox Maximum Strength] 400-400-40 mg/5 mL suspension 5 ml PO Q6H PRN (Reason: indigestion) Qty: 3000 0RF Continued albuterol sulfate [Ventolin HFA] 90 mcg/actuation HFA aerosol inhaler 2 puff INHALATION Q6H PRN (Reason: bronchospasm) Qty: 25.5 3RF cholecalciferol (vitamin D3) 50 mcg (2,000 unit) capsule 50 mcg PO DAILY Qty: 90 0RF fluconazole 150 mg tablet 150 mg PO Q3D Qty: 2 0RF ipratropium-albuterol 0.5 mg-3 mg(2.5 mg base)/3 mL solution for nebulization 3 ml inhalation Q6H PRN (Reason: shortness of breath or wheezing) 30 Days Qty: 360 4RF acetaminophen-codeine 300-30 mg tablet 1 tab PO BID PRN (Reason: pain) Qty: 60 5RF Xarelto 10 mg tablet See Rx Instructions .ROUTE .COMPLEX Qty: 30 11RF Dose Instruction: TAKE 1 TABLET BY MOUTH EVERY DAY Rx Instructions: TAKE 1 TABLET BY MOUTH EVERY DAY budesonide-formoterol [Symbicort] 160-4.5 mcg/actuation HFA aerosol inhaler See Rx Instructions .ROUTE .COMPLEX Qty: 10.2 0RF Dose Instruction: INHALE TWO PUFFS TWICE DAILY Rx Instructions: INHALE TWO PUFFS TWICE DAILY tiotropium bromide [Spiriva with HandiHaler] 18 mcg capsule, w/inhalation device 1 cap inhalation DAILY Qty: 30 5RF metoprolol tartrate 25 mg tablet 12.5 mg PO BID Qty: 180 0RF simvastatin 40 mg tablet See Rx Instructions .ROUTE .COMPLEX Qty: 90 3RF Dose Instruction: TAKE 1 TABLET DAILY Rx Instructions: TAKE 1 TABLET DAILY potassium chloride 10 mEq tablet extended release 10 meq PO DAILY PRN (Reason: lasix) Rx Instructions: Pt. takes with her as needed Lasix Discontinued furosemide 40 mg tablet 20 mg PO DAILY PRN (Reason: edema) Qty: 30 1RF amoxicillin-pot clavulanate 875-125 mg tablet 1 tab PO BID 7 Days Qty: 14 0RF Referrals: Meagan Soriano MD [Primary Care Provider, Family Practice] - 4-7 days Referral Note: We have notified your physician's clinic of the need for a follow-up appointment to be scheduled. If you have not heard from them within the next 2 business days, please call them directly. Steve Alan [Referring, Cardiology] - 4-7 days Referral Note: chronic lymphedema and for further evaluation and management Discharge Diet: Advance as tolerated and Usual diet Discharge Activity: Resume usual activity Patient Instructions: Opioid Safety, Patient Portal & Zulma Instructions Discharge Attestations Time Spent in Discharge Care*: less than 30 min Specific Discharge Activities: educating patient, educating and/or supporting family/caregiver, discussing with pcp/other providers, discussing with case finishing machine adjuster/social workers/dc planners, documenting/other paperwork and evaluating patient/reviewing data Status at Discharge: Cognitive status at discharge: cognitively intact, Behavioral status at discharge: cooperative, Functional status at discharge: other assisted ambulation, Overall status at discharge: patient is back to baseline Quality Metrics Clinical Quality Measures [ No reported AMI, CVA or VTE this stay] Coding Level of Care Code 16826 Diagnoses Chronic venous stasis dermatitis of both lower extremities I87.2 History of deep vein thrombosis Z86.718 CKD (chronic kidney disease) stage 2, GFR 60-89 ml/min N18.2 Edema of both lower extremities R60.0 Cellulitis of right lower extremity L03.115 Cat scratch W55.03XA
[2024-11-12 13:53] VITALS: BP 160/98; PULSE 74; RESP 18; TEMP 36.6; O2SAT 92
[2024-11-15 18:19] LABS: Bartonella Henselae IgG AB Negative
[2024-11-17 19:50] LABS: Bartonella Henselae IgG AB NEGATIVE
== END 2024-11-12 14:37 | disposition home or self-care (01) | DRG 603 ==
LOC: ER 18:53 → MEDSURG 21:41
PROVIDERS: Admitting Provider Family Medicine; Emergency Provider Family Medicine; PCP Family Medicine; Visit Provider Student in an Organized Health Care Education/Training Program
DX: L03.115 Cellulitis of right lower limb (principal); N17.9 Acute kidney failure, unspecified; A28.1 Cat-scratch disease; W55.03XA Scratched by cat, initial encounter; Z86.718 Personal history of other venous thrombosis and embolism; N18.2 Chronic kidney disease, stage 2 (mild); I12.9 Hypertensive chronic kidney disease with stage 1 through stage 4 chronic kidney disease, or unspecified chronic kidney disease; J44.9 Chronic obstructive pulmonary disease, unspecified; Z87.891 Personal history of nicotine dependence; Z90.710 Acquired absence of both cervix and uterus; Z90.89 Acquired absence of other organs; I87.2 Venous insufficiency (chronic) (peripheral); E78.2 Mixed hyperlipidemia; Z79.891 Long term (current) use of opiate analgesic; Z79.51 Long term (current) use of inhaled steroids; I89.0 Lymphedema, not elsewhere classified; Z88.1 Allergy status to other antibiotic agents; Z88.0 Allergy status to penicillin; E55.9 Vitamin D deficiency, unspecified; M81.0 Age-related osteoporosis without current pathological fracture; Z96.641 Presence of right artificial hip joint; Z80.1 Family history of malignant neoplasm of trachea, bronchus and lung; Z80.41 Family history of malignant neoplasm of ovary; Z82.49 Family history of ischemic heart disease and other diseases of the circulatory system
CPT/HCPCS: 36415; 71045; 80048; 80053; 81001; 83036; 83605; 83880; 84145; 85025; 85651; 86140; 86611; 87040; 93971; 94640; 94664; 96365; 99285; J0456; J1938; J2543; J3373; J7050; J9999; Q0144

== ENCOUNTER → 2025-01-18 14:07 | Outpatient (BNVA) | payer MEDICARE, OTHER, SELFPAY | PROVIDERS: PCP Family Medicine; Visit Provider Family Medicine | DX: I12.9 Hypertensive chronic kidney disease with stage 1 through stage 4 chronic kidney disease, or unspecified chronic kidney disease (principal); N18.2 Chronic kidney disease, stage 2 (mild); R60.0 Localized edema | CPT/HCPCS: 80048; 80061 ==

== ENCOUNTER 2025-02-07 23:18 | Emergency (ER) | payer MEDICARE, OTHER, SELFPAY ==
[2025-02-07 23:17] VITALS: BP 180/120; PULSE 70; RESP 23; TEMP 36.7; O2SAT 92; BMI 31.9
--- NOTE | 2025-02-07 23:26 | ECG_ITS ---
[email or web address] Date: 2025-02-07 Pat Name: Sana Coto Department: Room: Gender: Female [employer] [place] Hand: : 1940 Requested By: [place] Order Number: [id number] Navjot MD: Jona Vora M.D. Measurements Intervals [place] Rate: 63 P: 56 AK: 182 QRS: 51 QRSD: 89 T: 64 QT: 386 QTc: 396 Interpretive Statements SINUS RHYTHM Compared to ECG 04/05/2022 03:42:51 Ventricular premature complex(es) no longer present Electronically Signed On 02-07-2025 23:50:25 RADIO OFFICER by Jona Vora M.D. [email or web address]
--- NOTE | 2025-02-07 23:26 | CTR_ITS ---
PROCEDURE INFORMATION: Exam: CTA Chest With Contrast Exam date and time: 02/08/2025 12:55 AM Age: 85 years old Clinical indication: Shortness of breath; Additional info: HX 3 pe, abrupt SOB and hypoxia tonight TECHNIQUE: Imaging protocol: Computed tomographic angiography of the chest with contrast. Exam focused on the arteries. 3D rendering (Not supervised by radiologist): MIP and/or 3D reconstructed images were created by the technologist. Radiation optimization: All CT scans at this facility use at least one of these dose optimization techniques: automated exposure control; mA and/or kV adjustment per patient size (includes targeted exams where dose is matched to clinical indication); or iterative reconstruction. Contrast material: OMNI 350; Contrast volume: 100 ml; Contrast route: INTRAVENOUS (IV); COMPARISON: CR (CHEST, ) 02/07/2025 11:26 PM RADIATION DOSE METRICS: Total DLP (mGy-cm): 452.68 FINDINGS: Pulmonary arteries: Normal. No pulmonary emboli. Aorta: Atherosclerotic changes of the aorta. Lungs: Atelectasis at the lung bases. Mild tree-in-bud nodularity in the right upper lobe. Consolidation at the right lung apex, measures 2.4 x 1.9 cm. This may represent atelectasis however, three-month CT scan follow-up recommended. Pleural spaces: Unremarkable. No pneumothorax. No pleural effusion. Heart: Unremarkable. No cardiomegaly. No pericardial effusion. Lymph nodes: Unremarkable. No enlarged lymph nodes. Liver: Indeterminate low-attenuation lesion in the left hepatic lobe measures 1.4 cm, partially in the field of view. Consider nonemergent CT abdomen and pelvis for further evaluation. Bones/joints: Degenerative changes of the spine. Soft tissues: Bilateral breast implants which are peripherally calcified. CT/CT angio chest PE protcl [id number] IMPRESSION: 1. Indeterminate low-attenuation lesion in the left hepatic lobe measures 1.4 cm, partially in the field of view. Consider nonemergent CT abdomen and pelvis for further evaluation. Metastatic involvement must be clinically excluded. 2. Mild tree-in-bud nodularity in the right upper lobe. Consolidation at the right lung apex, measures 2.4 x 1.9 cm. This may represent atelectasis however, three-month CT scan follow-up recommended. 3. No pulmonary embolism.
--- NOTE | 2025-02-07 23:26 | XRR_ITS ---
PROCEDURE INFORMATION: Exam: XR Chest Exam date and time: 02/07/2025 11:26 PM Age: 85 years old Clinical indication: Shortness of breath; Additional info: SOB TECHNIQUE: Imaging protocol: Radiologic exam of the chest. Views: 1 view. COMPARISON: CR XR chest 1V portable [id number] 11/10/2024 7:37 PM FINDINGS: Lungs: Emphysema with hyperinflation, correlate for COPD. Pleural spaces: Unremarkable. No pleural effusion. No pneumothorax. Heart/Mediastinum: Unremarkable. No cardiomegaly. Bones/joints: Unremarkable. XR/XR chest 1V portable [id number] IMPRESSION: Emphysema with hyperinflation, correlate for COPD.
[2025-02-07 23:30] VITALS: BP 180/84; PULSE 66; O2SAT 94
--- OUTSIDE RECORDS SUMMARY | 2025-02-07 23:31 | XMS_ITS | Encounter Summary ---
Author Organization [email or web address] [facility] Address [address] [place] [address] Care Team Providers Care Land Commissioner Name Role Phone Jaime Chow MD Primary Care Provider +- [phone] Encounter Details Date Type Department Care Team (Latest Contact Info) Description 08/29/1999 Outpatient Historical [facility] Aravind Gamez MD [address] [place] [phone] Nonallopathic lesion of thoracic region, not elsewhere classified (Primary Dx) Social History Tobacco Use Types Packs/Day Years Used Date Smoking Tobacco: Never Assessed Comments Unknown Sex and Gender Information Value Date Recorded Sex Assigned at Not on file Legal 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
--- OUTSIDE RECORDS SUMMARY | 2025-02-07 23:31 | XMS_ITS | Encounter Summary ---
Author Organization [employer] [facility] Address [address] [place] [address] Care Team Providers Care Manager Internet Retails Sales Name Role Phone Jaime Chow MD Primary Care Provider +- [phone] Encounter Details Date Type Department Care Team (Latest Contact Info) Description 09/12/1999 Outpatient Historical [facility] Aravind Gamez MD [address] [place] [phone] Lump or mass in breast (Primary Dx) Social History Tobacco Use Types Packs/Day Years Used Date Smoking Tobacco: Never Assessed Comments Unknown Sex and Gender Information Value Date Recorded Sex Assigned at Not on file 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
--- OUTSIDE RECORDS SUMMARY | 2025-02-07 23:31 | XMS_ITS | Encounter Summary ---
Author Organization [employer] [facility] Address [address] [place] [address] Care Team Providers Care Auto Phone Installer Name Role Phone Jaime Chow MD Primary Care Provider +1- [phone] Encounter Details Date Type Department Care Team (Latest Contact Info) Description 03/23/2000 Outpatient Historical [facility] Aravind Gamez MD [address] [place] [phone] Other diseases of trachea and bronchus, not elsewhere classified (Primary Dx); Bronchitis, not specified as acute or chronic Social History Tobacco Use Types Packs/Day Years Used Date Smoking Tobacco: Never Assessed Comments Unknown Sex and Gender Information Value Date Recorded Sex Assigned at Not on file 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
--- OUTSIDE RECORDS SUMMARY | 2025-02-07 23:31 | XMS_ITS | Encounter Summary ---
Author Organization [facility] Address [address] [place] [address] Care Team Providers Care Net Developer With [employer] Name Role Phone Jaime Chow MD Primary Care Provider +1- [phone] Reason for Referral * Outpatient Services (Routine) - Closed Specialty Diagnoses / Procedures Referred By Stephen t Referred To Contact Diagnoses Ovarian cystic mass Procedures US PELVIC TRANSVAGINAL Nicholas Jaimes MD [address] [facility] [place] [address] Phone: tel: fax: Referral ID Status Reason Start Date Expiration Date Visits Re quested Visits Authorized [id number] Closed 04/03/2011 04/02/2012 1 1 INJECTION SERVICER Encounter Details Date Type Department Care Team (Late st Contact Info) Description 04/03/2011 Ancillary Orders [facility] Kira [facility] [place] [address] [place] [phone] Nicholas Jaimes MD [address] [address] Ovarian cystic mass Social History Tobacco Use Types Packs/Day Years Used Date Smoking Tobacco: Former Cigarettes 1 40 Alcohol Use Standard Drinks/Week Comments Yes 0 (1 standard drink = 0.6 oz pur e alcohol) occasionally Comments No Sex and Gender Information Value Date Recorded Sex Assigned at Not on file Legal Sex Female 6:40 AM FUEL INJECTION SERVICER Gender Identity Not on file Sexual Orientation Not on file Occupation Industry Job Start Date Job End Date Not on file Not on file Not on file Not on file documented as of this encounter Plan of Treatment Not on file documented as of this encounter Results * US PELVIC TRANSVAGINAL (04/03/2011 2:07 PM FUEL INJECTION SERVICER) Anatomical Region Laterality Modality Pelvis Ultrasound Impressions 04/06/2011 10:34 AM FUEL INJECTION SERVICER : Uterine leiomyoma Ovary cysts. Pyometra COMMENTS: Intracavitary fluid likely represents a sequestered transudate, pyometra as a consequence of cervical stenosis. Favor adjacent cysts rather than a septate cyst of the right ovary. The findings are similar to those reported on the recent prior exam of 02/23/2011 ([facility]). No other prior exams available for comparison. Tech: Priscila Fisher RDMS Narrative 04/06/2011 10:34 AM FUEL INJECTION SERVICER GYNECOLOGIC ULTRASOUND REPORT Requesting Physician: Nicholas Jaimes [...] reported on the recent prior exam of02/23/[address] ([facility]). No other prior exams available forcomparison. Tech: Priscila Fisher [facility] Nicholas Jaimes MD US ORDERABLES Final Result documented in this encounter Visit Diagnoses Diagnosis Ovarian cystic mass Other and unspecified ovarian cyst documented in this encounter Care Teams Net Developer With [employer] Relationship Specialty Start Date End Date Jaime Chow MD [address] [place] [phone] PCP - General Family Practice 10/12/11 documented as of this encounter
--- OUTSIDE RECORDS SUMMARY | 2025-02-07 23:31 | XMS_ITS | Clinical Summary ---
Author Organization [facility] Address [address] [place]: Epic Prelude ADT RE TOMAS [address] Care Team Providers Care Aerial Planting And Cultivation Manager Name Role Phone Jazmyne Aravind Chan DO Primary Care Provider Allergies Active Allergy [...] Primary osteoarthritis of right hip 10/26/2022 11/16/2022 Encounters Date Type Department Care Team Description 12/12/2024 External Device Data [facility] ABSTRACTION Provider, Abstract 12/12/2024 External Device Data [facility] ABSTRACTION Provider, Abstract 12/06/2024 Telephone [facility] [place] [address] [place] 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 Gender Identity Not on file Sexual Orientation Not on file Last Filed Vital Signs Vital Sign Reading Time Taken Comments Blood Pressure 130/68 05/12/2023 11:50 AM INSTRUMENT AND CONTROL TECHNICIAN Pulse 58 10/28/2022 10:23 AM CDT Temperature 36.4 C (97.6 F) 10/28/2022 10:23 AM CDT Respiratory Rate 16 10/28/2022 10:23 AM CDT Oxygen Saturation 93% 10/28/2022 10:23 AM CDT Inhaled Oxygen Concentration - - Weight 95.3 kg (210 lb) 05/25/2023 2:03 PM INSTRUMENT AND CONTROL TECHNICIAN Height 171.5 cm (5' 7.5 ) 12/16/2022 [...] 2024 02/18/2000 Medical Devices Implanted Type Area Analysis Consultant Device Identifier Shelf Expiration Date Model / Serial / Lot Cup [place] Porocoat Acet Shell 56mm 1217-22-056 - [id number] Implanted:Qty: 1 on 10/27/2022 by Jeff Rose MD at [facility] Hip Right: Hip [employer] [id number] 06/19/2032 [id number] / / [id number] Liner [place] Altrx [id number] Nutrl 1221-40-056 - [id number] Implanted:Qty: 1 on 10/27/2022 by Jeff Rose MD at [facility] Hip Right: Hip [employer] [id number] 06/20/2027 [id number] / / [id number] Stem Fem Actis Hi Colr Sz5 1010-12-050 - [id number] Implanted:Qty: 1 on 10/27/2022 by Jeff Rose MD at [facility] Hip Right: Hip [employer] [id number] 06/19/2032 1010--050 / / [id number] Head Fem Cer 03/04 40mm 1365-24-955 - [id number] Implanted:Qty: 1 on 10/27/2022 by Jeff Rose MD at [facility] Hip Right: Hip [employer] [id number] 09/19/2027 2288-16-583 / / [id number] Hole Eliminator [place] 1246-03-000 - [id number] Implanted:Qty: 1 on 10/27/2022 by Jeff Rose MD at [facility] Other Right: Hip [employer] [id number] 06/19/2032 1246-03-000 / / [id number] Insurance MEDICARE PART A AND B [employer] INS CO SUPP Advance Directives For more information, please contact: [phone] * Full Code (Latest Code Status on File) Date Activated Date Inactivated Comments 10/27/2022 11:38 AM 10/28/2022 1:41 PM Care Teams Aerial Planting And Cultivation Manager Relationship Specialty Start Date End Date Aravind Samano DO [address] [phone] PCP - General Family Practice 05/12/23
--- OUTSIDE RECORDS SUMMARY | 2025-02-07 23:31 | XMS_ITS | Encounter Summary ---
Author Organization [employer] [facility] Address [address] [place] [address] Care Team Providers Care River Guide Name Role Phone Jaime Chow MD Primary Care Provider [phone]- [phone] Encounter Details Date Type Department Care Team (Latest Contact Info) Description 11/03/1999 Outpatient Historical HIS [facility] Aravind Gamez MD [address] [place] [phone] Pure hypercholesterolem (Primary Dx); Encounter for long-term (current) use of other medications; Goiter, unspecified Social History Tobacco Use Types Packs/Day Years Used Date Smoking Tobacco: Never Assessed Comments Unknown Sex and Gender Information Value Date Recorded Sex Assigned at Not on file Legal Sex Female 6:40 AM 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 Gender Identity Not on file Sexual Orientation Not on file documented as of this encounter Plan of Treatment Not on file documented as of this encounter Visit Diagnoses Diagnosis Pure hypercholesterolem- Primary Pure hypercholesterolemia Encounter for long-term (current) use of other medications Goiter, unspecified documented in this encounter Care Teams River Guide Relationship Specialty Start Date End Date Jaime Chow MD [address] [place] [address] [facility] [address] [place] [phone] PCP - General Family Practice 10/12/11 documented as of this encounter
--- OUTSIDE RECORDS SUMMARY | 2025-02-07 23:31 | XMS_ITS | Clinical Summary ---
Author Organization [facility] Address [address] [place] [address] Care Team Providers Care Treating Machine Operator Name Role Phone Jaime Chow MD Primary Care Provider +1- [phone] Allergies No known active allergies Medications simvastatin (ZOCOR) 40 mg Oral tablet Take 40 mg by mouth Daily LATE. Active FLUTICASONE/CARTER METEROL (ADVAIR DISKUS INHALATION) Take by inhalation daily. Active atenolol-chlort halidone (TENORETIC) 100-25 mg Oral tablet Take 1 Tab by mouth Daily LATE. 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 Gender Identity Not on file Sexual Orientation [...] Health Maintenance Due Date Last Done Comments PNEUMOCOCCAL VACCINE 50+ YEA RS (1 of 2 - PCV) 1958 ZOSTER VACCINE (1 of 2) 1989 OSTEOPOROSIS SCREENING 01/30/2004 RSV VACCINE (60+ or ) (1 - 1-dose 75+ series) 2014 INFLUENZA VACCINE (#1) 2024 3, 12/30/2021, 02/18/2000 DTAP/TDAP/TD VACCINES (2 - T d or Tdap) 11/06/2034 11/06/2024 Insurance MEDICARE PART A AND B [employer]URANCE [place] [id number] Advance Directives For more information, please contact: [phone] Documents on File Type Date Recorded Patient Manager Play Expl anation Advance Directive POA 10/23/2011 3:45 PM Ad cali Directive POA * Full Code (Latest Code Status on File) Date Activated Date Inactivated Comments 10/23/2011 12:47 PM 10/24/2011 3:22 PM Care Teams Treating Machine Operator Relationship Specialty Start Date End Date Jaime Chow MD [address] [phone] PCP - General Family Practice 10/12/11
--- OUTSIDE RECORDS SUMMARY | 2025-02-07 23:31 | XMS_ITS | Encounter Summary ---
Author Organization [employer] [facility] Address [address] [place] [address] Care Team Providers Care Hand Buffing Wheel Former Name Role Phone Jaime Chow MD Primary Care Provider +- [phone] Encounter Details Date Type Department Care Team (Latest Contact Info) Description 09/17/1999 Outpatient Historical HIS [facility] SánchezMiko MD [address] [address] Solitary cyst of breast (Primary Dx) Social History Tobacco Use Types Packs/Day Years Used Date Smoking Tobacco: Never Assessed Comments Unknown Sex and Gender Information Value Date Recorded Sex Assigned at Not on file Legal Sex Female 6:40 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
--- OUTSIDE RECORDS SUMMARY | 2025-02-07 23:31 | XMS_ITS | Encounter Summary ---
Author Organization [employer] [facility] Address [address] [place] [address] Care Team Providers Care Nut Tapper Name Role Phone Jaime Chow MD Primary Care Provider +1- [phone] Encounter Details Date Type Department Care Team (Latest Contact Info) Description 10/30/1999 Outpatient Historical HIS [facility] Aravind Gamez MD [address] [place] [phone] Goiter, unspecified (Primary Dx); Unspecified sinusitis (chronic); Hemoptysis; Encounter for long-term (current) use of other medications Social History Tobacco Use Types Packs/Day Years Used Date Smoking Tobacco: Never Assessed Comments Unknown Sex and Gender Information Value Date Recorded Sex Assigned at Not on file Legal Sex Female 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
[2025-02-07 23:41] VITALS: PULSE 65; RESP 18; O2SAT 95
--- NOTE | 2025-02-07 23:50 | ED_ITS ---
HPI - SOB/Dyspnea 2 General: Chief Complaint: Shortness of Breath/Dyspnea Stated Complaint: SOB History of Present Illness: HPI Narrative: Patient is a 85-year-old female with past medical history of COPD on home oxygen as needed, hypertension, previous PEs on Eliquis who presents with acute onset dyspnea and hypoxemia beginning tonight. She reports that her oxygen saturation dropped to 79% at home, prompting her to initiate supplemental oxygen, which improved her saturation to the mid-90s (her baseline). She also notes significant blood pressure fluctuations, with recent readings as high as 190s/110s and most recently 167/83. She has a history of seasonal allergies and chronic lower extremity edema, with longstanding left leg swelling attributed to prior trauma and poor circulation. She self-administered prednisone today and planned to use a breathing treatment. She denies heart failure and reports chest pain, syncope. She attributes COPD flares to environmental allergies which she thinks is caused today, she has had no recent fevers, chills, diaphoresis, changes in appetite, NVD, urinary changes. She is on Xarelto for her prior PEs, states she has been compliant with all of her medication. Related Data Previous Rx's ?Medication ?Instructions ?Recorded albuterol sulfate 90 mcg/actuation 2 puff inhalation Q 6H PRN 01/13/21 aerosol inhaler (Ventolin HFA) bronchospasm #25.5 gram s ipratropium 0.5 mg-albuterol 3 mg 3 ml inhalation Q6H PRN shortness 03/17/21 (2.5 mg base)/3 mL nebulization of breath or wheezing 30 days #360 soln mL cholecalciferol (vitamin D3) 50 50 mcg PO DAILY #90 ca ps 01/09/24 mcg (2,000 unit) capsule simvastatin 40 mg tablet See Rx Instructions .Route 0 08/09/24 .COMPLEX #90 tabs aluminum-mag hydroxide-simethicone 5 ml PO Q6H PRN ind igestion #3,000 11/12/24 400 mg-400 mg-40 mg/5 mL oral susp mL (Maalox Maximum Strength) acetaminophen 300 mg-codeine 30 mg 1 tab PO BID PRN pa in #60 tabs 11/13/24 tablet potassium chloride 10 mEq 10 meq PO DAILY PRN lasix #9 0 tabs 08/25/25 tablet,extended release metoprolol tartrate 25 mg tablet 12.5 mg (1/2 x 25 mg) PO BID #180 12/13/24 tabs COVID vac 24-25(12up)(Mod)(PF) 50 0.5 ml IM ONCE #0.5 mL 12/22/24 mcg/0.5 mL IM syringe COVID vac 25-26(12up)(Mod)(PF) 10 0.2 ml IM ONCE #0.2 mL 01/09/25 mcg/0.2 mL IM syringe torsemide 10 mg tablet 10 mg PO QAM #30 tabs fluticasone fur. 200 mcg-umeclid 1 inh inhalation RUFINA Y #180 ea 01/24/25 62.5 mcg-vilant 25 mcg inhalat.powder (Trelegy Ellipta) rivaroxaban 10 mg tablet (Xarelto) See Rx Instructions .Route 01/25/25 .COMPLEX #90 tabs levofloxacin 750 mg tablet 750 mg PO DAILY 7 days #7 t abs 02/08/25 prednisone 50 mg tablet 50 mg PO DAILY 7 days #7 tab s 02/08/25 Allergies Allergy/AdvReac Type Severity Reaction Status Date / Time hydrocodone Allergy ADR-Confusi Verified 02/07/25 23:30 on oxycodone Allergy ADR-Confusi Verified 02/07/25 23:30 on latex AdvReac Intermediate ADR-Itching Verified 02/07/25 23:30 clindamycin AdvReac ADR-Gastrointestinal Verified 02/07/25 23:30 Upset Review of Systems 2 General: Reports: 10 or more systems reviewed and unremarkable except in HPI and below Resp: Reports: dyspnea and non-productive cough PFSH ED 2 PFSH: Medical History (Updated 02/08/25 @ 02:07 by [place] DO) 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, saw endo Edema of both lower extremities CKD (chronic kidney disease) stage 2, GFR 60-89 ml/min Osteoarthritis of right hip Generalized weakness Hyperparathyroidism Vitamin D deficiency Supplemental oxygen dependent has O2 to use on exertion Chronic venous stasis dermatitis of both lower extremities Hx of pulmonary embolus Osteoporosis refuses treatment Mixed dyslipidemia History of deep vein thrombosis Essential (primary) hypertension COPD (chronic obstructive pulmonary disease) Tracheomalacia, acquired Surgical History Hx of melanoma excision stage 1 of back Hx of tonsillectomy Hx of breast augmentation History of right hip replacement Hx of bilateral cataract extraction History of hysterectomy hyst w/ BSO due to fibroids; no cancer History of lumpectomy of right breast benign History of ear surgery R ear for otosclerosis Family History Father Parkinson disease Mother Heart disease Sister Cancer Lung Sister Cancer Ovarian Social History Smoking and tobacco/nicotine status: former use of tobacco/nicotine Quit status (tobacco/nicotine): has quit using Year quit tobacco: 2001 - 1PPD x 40 Years Alcohol intake: current Alcohol intake frequency: holidays/special occasions only Substance/Drug Use: never Lives independently: Yes Household members: none Marital status: Number of children: 2 Highest education level completed: Some College, No Degree Current occupational status: retired 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 Saturating in mid 90s on 2 L nasal cannula, mild tachypnea but breathing comfortably overall, able to speak in full sentences without getting remarkably short of breath, bilateral breath sounds present, decreased and mild end expiratory wheezing, no rales or rhonchi no accessory muscle usage, not in respiratory distress. Abdomen soft, nontender, nondistended. Normal sinus rhythm with chronic leg swelling, good cap refill. GCS 15. Course 2 Vital Signs: Vital signs: Vital Signs Temperature 98.1 F 02/07/25 23:17 Pulse Rate 69 02/08/25 02:58 Respiratory Rate 23 H 02/08/25 02:45 Blood Pressure 153/88 02/08/25 02:58 Pulse Oximetry 90 02/08/25 02:58 Oxygen Delivery Me thod Nasal Cannula 02/08/25 00:06 Oxygen Flow Rate 2 02/07/25 23:41 MDM - SOB/Dyspnea Medical Decision Making -ddx: URI, pneumonia, COPD exacerbation, PE, CHF - Patient overall well-appearing, with seemingly abrupt onset of symptoms, has had many previous COPD flares from environmental allergies and feels like that is what is happening again but with the abrupt onset she wanted to be evaluated in setting of her previous PEs, she has been on Xarelto and compliant with this since her previous ones, no fevers. Gave herself a dose of steroids earlier today. Respiratory exam overall reassuring, on 2 L in the mid 90s with, mild end expiratory and decreased breath sounds. Chronic leg swelling. - Will evaluate with cardiac, infectious workup including CTA PE in setting of her 3 previous PEs, already had a dose of steroids today, will start with DuoNeb treatment and reassess. - Patient with overall reassuring ED evaluation, blood gas with no significant acid-base disturbance, mild baseline CO2 retention but compensated for, no leukocytosis, afebrile and no systemic signs of infection, no severe electrolyte abnormality, no KEVIN. Initial troponin mildly elevated but negative delta, similar to her baseline. CT angio with no evidence of PE, fluid overload, saw a tree in bud nodule to her right upper lobe, in setting of her symptoms, will treat this as a community-acquired pneumonia, has not recently been on antibiotics, will give her 7 days of Levaquin, prednisone, encouraged her to use her continued breathing treatments and her home oxygen as needed and have her follow-up with PCP in a week's time to reevaluate the status of her infection, daughter at bedside and agreeable with plan of care, will closely monitor patient over the next few days, strict return precautions given. Lab Data 02/07/25 23:30 02/07/25 23:30 Labs/Radiology: Radiology Impressions Chest CTA 02/07/25 23:26 IMPRESSION: 1. Indeterminate low-attenuation lesion in the left hepatic lobe measures 1.4 cm, partially in the field of view. Consider nonemergent CT abdomen and pelvis for further evaluation. Metastatic involvement must be clinically excluded. 2. Mild tree-in-bud nodularity in the right upper lobe. Consolidation at the right lung apex, measures 2.4 x 1.9 cm. This may represent atelectasis however, three-month CT scan follow-up recommended. 3. No pulmonary embolism. Chest X-Ray 02/07/25 23:26 IMPRESSION: Emphysema with hyperinflation, correlate for COPD. Laboratory Results WBC 8.91 10^3/uL (3.29-11.43) 02/07/25 23:30 RBC 4.48 10^6/uL (3.85-5.65) 02/07/25 23:30 Hgb 14.20 g/dL (11.27-16.99) 02/07/25 23:30 Hct 43.2 % (36-47) 02/07/25 23:30 MCV 96.4 fl (85-98) 02/07/25 23: MCH 31.7 pg (27-33) 02/07/25 23: MCHC 32.9 g/dL (30-55) 02/07/25 23: RDW 13.8 % (12.1-15.1) 02/07/25 23: Plt Count 177 10^3/cmm (157-399) 02/07/25 23: MPV 10.2 fL (7.4-10.4) 02/07/25 23: Neut % (Auto) 73.2 % 02/07/25 23: Lymph % (Auto) 12.7 % 02/07/25 23:30 [place] % (Auto) 12.6 % 02/07/25 23:30 Eos % (Auto) 0.7 % 02/07/25 23: Baso % (Auto) 0.6 % 02/07/25 23: Neut # (Auto) 6.53 10^3/uL (1.8-7.7) 02/07/25 23:30 Lymph # (Auto) 1.1 10^3/uL (0.8-4.8) 02/07/25 23:30 [place] # (Auto) 1.1 10^3/uL (0.2-0.9) H 02/07/25 23:30 Eos # (Auto) 0.1 10^3/uL (0.0-0.8) 02/07/25 23: Baso # (Auto) 0.1 10^3/uL (0.0-0.1) 02/07/25 23: Nucleated RBC % (auto) 0 % 02/07/25 23: Nucleated RBCs # 0.0 /100WBC 02/07/25 23:30 Specimen Type Venous 02/07/25 11:40 Reyes Test Pos 02/07/25 11:40 VBG pH 7.36 (7.32-7.42) 02/07/25 11:40 VBG pCO2 50.6 mmHg (41-51) 02/07/25 11:40 VBG pO2 33.2 mmHg (25-40) 02/07/25 11:40 VBG HCO3 28.6 mmol/L (24-28) H 02/07/25 11:40 VBG Base Excess 2.2 mmol/L (-3.0-3.0) 02/07/25 11:40 VBG Hematocrit 43.3 % (37-47) 02/07/25 11:40 O2 Delivery Device Nc 02/07/25 11:40 O2 Liters/Min 2.0 % 02/07/25 11:40 FiO2 28.0 % 02/07/25 11:40 Tow Mate ID gerca 02/07/25 11:40 Sodium 138 mmol/L (136-145) 02/07/25 23:30 Potassium 3.8 mmol/L (3.5-5.1) 02/07/25 23:30 Chloride 101 mmol/L (98-107) 02/07/25 23:30 Carbon Dioxide 27 mmol/L (22-29) 02/07/25 23:30 Anion Gap 13.8 (5-19) 02/07/25 23:30 BUN 9 mg/dL (8-23) 02/07/25 23:30 Creatinine 0.9 mg/dL (0.5-0.9) 02/07/25 23:30 GFR Calculation Not Reportable 02/07/25 23:30 Glucose 105 mg/dL (65-115) 02/07/25 23:30 Calculated Osmolality 285 mOsm/kg (285-295) 02/07/25 23:30 Lactic Acid 0.9 mmol/L (0.5-2.2) 02/07/25 23:30 Calcium 8.8 mg/dL (8.5-10.5) 02/07/25 23:30 Phosphorus 3.3 mg/dL (2.5-4.5) 02/07/25 23:30 Magnesium 1.9 mg/dL (1.7-2.3) 02/07/25 23:30 Troponin T Baseline 15 ng/L (0-10) H 02/07/25 23:30 Troponin T 120 Minute 14.72 ng/L (0-10) H 02/08/25 01:55 Delta Troponin T -0.28 ABS# (0-10) L 02/08/25 01:55 C-React Prot High Sens 7.310 mg/dL (0.0-0.3) H 02/07/25 23:30 NT-Pro-B Natriuret Pep 167 pg/mL (0-450) 02/07/25 23:30 Procalcitonin 0.06 ng/mL (0-0.5) 02/07/25 23:30 Influenza A (PCR) Negative (Negative) 02/07/25 23:30 Influenza Type B (PCR) Negative (Negative) 02/07/25 23:30 RSV (PCR) Negative (Negative) 02/07/25 23:30 SARS-CoV-2 (PCR) Negative (Negative) 02/07/25 23:30 All radiology interpretation(s) finalized by discharge Discharge Plan Discharge Patient Disposition: Home Clinical Impression: Pneumonia, Hx of pulmonary embolus Condition: Stable Prescriptions: New levofloxacin 750 mg tablet 750 mg PO DAILY 7 Days Qty: 7 0RF prednisone 50 mg tablet 50 mg PO DAILY 7 Days Qty: 7 0RF No Action albuterol sulfate [Ventolin HFA] 90 mcg/actuation HFA aerosol inhaler 2 puff INHALATION Q6H PRN (Reason: bronchospasm) Qty: 25.5 3RF cholecalciferol (vitamin D3) 50 mcg (2,000 unit) capsule 50 mcg PO DAILY Qty: 90 0RF potassium chloride 10 mEq tablet extended release 10 meq PO DAILY PRN (Reason: lasix) Qty: 90 1RF Rx Instructions: Pt. takes with her as needed Lasix acetaminophen-codeine 300-30 mg tablet 1 tab PO BID PRN (Reason: pain) Qty: 60 0RF COVID vac 24-25(12up)(Mod)(PF) 50 mcg/0.5 mL syringe 0.5 ml IM ONCE Qty: 0.5 0RF torsemide 10 mg tablet 10 mg PO QAM Qty: 30 0RF COVID vac 25-26(12up)(Mod)(PF) 10 mcg/0.2 mL syringe 0.2 ml IM ONCE Qty: 0.2 0RF Rx Instructions: pt requests covid vax--ok to substitute ipratropium-albuterol 0.5 mg-3 mg(2.5 mg base)/3 mL solution for nebulization 3 ml inhalation Q6H PRN (Reason: shortness of breath or wheezing) 30 Days Qty: 360 4RF simvastatin 40 mg tablet See Rx Instructions .ROUTE .COMPLEX Qty: 90 3RF Dose Instruction: TAKE 1 TABLET DAILY Rx Instructions: TAKE 1 TABLET DAILY metoprolol tartrate 25 mg tablet 12.5 mg PO BID Qty: 180 0RF Trelegy Ellipta 200-62.5-25 mcg blister with device 1 inh inhalation DAILY Qty: 180 3RF Xarelto 10 mg tablet See Rx Instructions .ROUTE .COMPLEX Qty: 90 3RF Dose Instruction: TAKE 1 TABLET BY MOUTH EVERY DAY Rx Instructions: TAKE 1 TABLET BY MOUTH EVERY DAY alum-mag hydroxide-simeth [Maalox Maximum Strength] 400-400-40 mg/5 mL suspension 5 ml PO Q6H PRN (Reason: indigestion) Qty: 3000 0RF Discharge Orders: Discharge ED (Routine); Ordered 02/08/25 Ordered By: [place] Referrals: Meagan Soriano MD [Primary Care Provider, [facility]] Patient Instructions: Opioid Safety, Pain Management, Patient Portal & [place]ulma Instructions Activity Restrictions/Additional Instructions: You were seen for your shortness of breath, you were evaluated with labs, an EKG, chest x-ray and CT scan which were ultimately reassuring for no blood clot, acute cardiac events today but likely a developing pneumonia and COPD exacerbation. You are improved with the breathing treatment and you are deemed stable to be discharged home. To treat this infection, take the levofloxacin, 750 mg once every 24 hours, right before bedtime since the first 1 was given to you here before you left. You need to take this for a total of at least 5 days but continued to 7 days if you are not feeling completely healed at that time. Additionally, take the prednisone 50 mg once daily for the next 7 days. Continue to use your breathing treatments at home as originally prescribed. Use your oxygen levels for having any air hunger or having oxygen saturations lower than 88%. Make a follow-up appointment with your primary care provider in a week's time to reevaluate the status of your infection and overall breathing. Return to the ED with severe worsening of her breathing, chest pains, inability to eat or drink, fevers that do not improve with Tylenol, feeling ill, any other emergent concerns. Print Language: Grenadian Coding Level of Care Code ED Porcelain Enameler for Ramírez López
[2025-02-07 23:52] LABS: Base Excess VBG 2.2 mmol/L (-3.0-3.0); Blood Gas Allen Test Pos; Blood Gas LPM 2.0 %; Blood Gas Operator Identificat gerca; Blood Gas Sample Type Venous; HCO3 VBG 28.6 mmol/L (24-28); PCO2 VBG 50.6 mmHg (41-51); PO2 VBG 33.2 mmHg (25-40); Venous Blood Gas Hematocrit 43.3 % (37-47); pH VBG 7.36 (7.32-7.42)
[2025-02-08] VITALS (7 sets, daily range): BP systolic 149–153; BP diastolic 88–103; PULSE 63–77; RESP 13–23; O2SAT 90–94
[2025-02-08 00:07] LABS: Hematocrit 43.2 % (36-47); Hemoglobin 14.20 g/dL (11.27-16.99); Mean Corpuscular HGB Conc 32.9 g/dL (30-55); Mean Corpuscular Hemoglobin 31.7 pg (27-33); Mean Corpuscular Volume 96.4 fl (85-98); Nucleated Red Blood Cells % 0 %; Platelet Count 177 10^3/cmm (157-399); Red Blood Count 4.48 10^6/uL (3.85-5.65); White Blood Count 8.91 10^3/uL (3.29-11.43)
[2025-02-08 00:16] LABS: Lactic Sepsis W/Reflex 0.9 mmol/L (0.5-2.2)
[2025-02-08 00:17] LABS: Troponin(5th) Baseline 15 ng/L (0-10)
[2025-02-08 00:28] LABS: NT Pro B Type Natriuretic Pept 167 pg/mL (0-450); Procalcitonin 0.06 ng/mL (0-0.5)
[2025-02-08 00:34] LABS: Respiratory Syncytial Virus Ce NEGATIVE (Negative); SARS-CoV-2 PCR NEGATIVE (Negative)
[2025-02-08 00:38] LABS: Anion Gap 13.8 (5-19); Blood Urea Nitrogen 9 mg/dL (8-23); Calcium 8.8 mg/dL (8.5-10.5); Carbon Dioxide 27 mmol/L (22-29); Chloride 101 mmol/L (98-107); Glucose 105 mg/dL (65-115); Magnesium 1.9 mg/dL (1.7-2.3); Osmolality Calculated 285 mOsm/kg (285-295); Potassium 3.8 mmol/L (3.5-5.1); Sodium 138 mmol/L (136-145)
[2025-02-08] MEDS: iohexol 350 mg/mL 500 mL Btl (per mL) IV (01:11)
[2025-02-08 01:31] LABS: CRP High Sensitivity Cardiac 7.310 mg/dL (0.0-0.3)
--- NOTE | 2025-02-08 01:47 | ECG_ITS ---
[facility] Test Date: 2025-02-08 Pat Name: Sana Coto Department: Room: Gender: Female [employer] Member: : [id number] Requested By: [place] Order Number: [id number] Navjot MD: Jona Vora M.D. Measurements Intervals Correll Rate: 75 P: 48 MA: 186 QRS: 52 QRSD: 90 T: 59 QT: 394 QTc: 441 Interpretive Statements SINUS RHYTHM WITH SINUS ARRHYTHMIA Compared to ECG 02/07/2025 23:34:48 No significant changes Electronically Signed On 02-10-2025 14:47:30 SHUTTLER by Jona Vora M.D. [email or web address]
[2025-02-08 02:26] LABS: Troponin 5 2HR 14.72 ng/L (0-10)
[2025-02-08 02:27] LABS: Troponin 5 2HR Delta -0.28 ABS# (0-10)
== END 2025-02-08 03:01 | disposition home or self-care (01) ==
PROVIDERS: Emergency Provider Student in an Organized Health Care Education/Training Program; PCP Family Medicine
DX: J18.9 Pneumonia, unspecified organism (principal); Z86.711 Personal history of pulmonary embolism; Z11.52 Encounter for screening for COVID-19; Z87.891 Personal history of nicotine dependence; J44.9 Chronic obstructive pulmonary disease, unspecified; E78.2 Mixed hyperlipidemia; I12.9 Hypertensive chronic kidney disease with stage 1 through stage 4 chronic kidney disease, or unspecified chronic kidney disease; N18.2 Chronic kidney disease, stage 2 (mild)
CPT/HCPCS: 71045; 71275; 80048; 82803; 83605; 83735; 83880; 84100; 84145; 84484; 85025; 86141; 87637; 93005; 94640; 99285; J9999